=== PATIENT | female | born 1960 | race Caucasian/White ===

== ENCOUNTER 2021-02-13 15:41 | Emergency (ER) | payer BC, SELFPAY ==
--- NOTE | ~2021-02-13 | CT_ITS ---
EXAMINATION: CT abdomen pelvis w con DATE: 02/13/2021 18:03 INDICATION: Abdominal pain for 4 days. History of nausea and diarrhea. TECHNIQUE: Computed tomography (CT) of the abdomen and pelvis was performed with 100 cc Omnipaque 350 intravenous contrast. The dose-length product was 613.01 mGy-cm. Automated exposure control and iter ative reconstruction technique were employed. COMPARISON: CT dated 06/22/2016 FINDINGS: There is dependent atelectasis. There are bilateral breast implants. Heart size normal. No significant pleural or pericardial effusion. Status post cholecystectomy with pneumobilia. There is m oderate fluid throughout the small bowel which is distended. There are areas of mild small bowel wall thickening and mucosal enhancement, particularly in the proximal small bowel. There is fluid with ai r-fluid levels in the colon nondilated. No definite obstruction is seen. No lymphadenopathy. No signi ficant vascular abnormality. No lymphadenopathy. No free air or free fluid. IMPRESSION: 1. Moderate fluid throughout distended small bowel with areas of small bowel wall thickening and muco nino enhancement proximally. Findings suspicious for enteritis. No definite obstruction. 2: Status post cholecystectomy with pneumobilia. Reviewed, dictated and finalized at location A. IMPRESSION: 1. Moderate fluid throughout distended small bowel with areas of small bowel wa ll thickening and mucosal enhancement proximally. Findings suspicious for enter itis. No definite obstruction. 2: Status post cholecystectomy with pneumobilia.
--- NOTE | 2021-02-13 16:09 | ED.ABDPAIN ---
HPI - Abdominal Pain General Chief Complaint: Abdominal Pain Stated Complaint: stomach pain, back pain Time Seen by Provider: 02/13/21 16:10 Source: patient Mode of arrival: ambulatory Limitations: no limitations History of Present Illness HPI narrative: 60-year-old woman with a history of pancreatitis associated with gallbladder disease comes in today complaining of 3 days of worsening epigastric pain that radiates through to her back. Patient states that she has had nausea and diarrhea, but no fever, vomiting, dysuria, hematuria, shortness of breath, or chest pain. MD elicited complaint: abdominal pain Pertinent past history: other ( Pancreatitis 5 years ago) Onset (ago): day(s) (3) Pain Consistency: constant Location: epigastric Severity: severe Radiation: back Migration to: no migration Exacerbating factors: nothing Relieving factors: nothing Associated symptoms: nausea and diarrhea Related Data Home Medications Medication Instructions Recorded Confirmed L. gasseri-B. bifidum-B longum 2 cap PO DAILY 02/13/21 02/13/21 [[employer]] diphenhydramine HCl [Unisom 50 mg PO HS PRN 02/13/21 02/13/21 [employer]] escitalopram oxalate [Lexapro] 5 mg PO DAILY 02/13/21 02/13/21 estradiol 0.5 mg PO HS 02/13/21 02/13/21 estradiol [Estrace] 1 mg PO DAILY 02/13/21 02/13/21 linaclotide [Linzess] 145 mcg PO EVERY OTHER DAY 02/13/21 02/13/21 meloxicam [Mobic] 15 mg PO DAILY PRN 02/13/21 02/13/21 montelukast [Singulair] 10 mg PO DAILY 02/13/21 02/13/21 sb-ta-akrog-lutein-herbal 293 1 tablet PO DAILY 02/13/21 02/13/21 [[facility]] nortriptyline [Pamelor] 10 mg PO DAILY 02/13/21 02/13/21 valacyclovir 500 mg PO DAILY 02/13/21 02/13/21 Allergies Allergy/AdvReac Type Severity Reaction Status Date / Time codeine Allergy Confusion Verified 02/13/21 17:26 TAPE AdvReac Rash Uncoded 02/13/21 17:26 Review of Systems Review of Systems: All systems reviewed & are unremarkable except as noted in HPI and below Constitutional: Constitutional: Denies chills and Denies fever(s) Eyes: Eyes: Denies change in vision and Denies photophobia ENT: Reports sore throat ( 2 weeks ago) Cardiovascular: Cardiovascular: Denies chest pain and Denies radiating jaw, neck or arm pain Respiratory: Respiratory: Denies cough, Denies dyspnea and Denies wheezing Gastrointestinal: Gastrointestinal: Reports as per HPI, Reports abdominal pain, Reports diarrhea, Reports nausea and Denies vomiting Genitourinary: Genitourinary: Denies hematuria, Denies nocturia and Denies dysuria Musculoskeletal: Musculoskeletal: Denies back pain, Denies arthralgias and Denies joint swelling Integumentary/Breasts: Skin/Breast: Denies pruritus, Denies erythema and Denies rash Neurologic: Denies confusion, Denies vertigo, Denies dizziness, Denies syncope and Denies headache(s) Hematologic/Lymphatic: Hematologic/Lymphatic: Denies easy bleeding and Denies easy bruising Allergic/Immunologic: Allergic/Immunologic: Denies lip swelling and Denies throat swelling [facility] [place] Past Medical History Medical History (Updated 02/13/21 @ 18:33 by Samir Vasquez MD) COPD (chronic obstructive pulmonary disease) IBS (irritable bowel syndrome) Pancreatitis Surgical History Surgical History (Updated 02/13/21 @ 16:24 by Samir Vasquez MD) History of bladder suspension procedure History of cholecystectomy History of ERCP History of hysterectomy History of tubal ligation Social History Social History (Updated 02/13/21 @ 16:25 by Samir Vasquez MD) Smoking status: Former smoker Alcohol intake: current Alcohol use details: occasional Substance use: never Living arrangements: with family Gender identity (if verbalized by the patient): Female Exam Const: General: healthy appearing and alert Orientation/consciousness: patient oriented x3 Limitations: no limitations Other: moderate to severe acute distress. HENMT: Head: wei
--- NOTE | 2021-02-13 16:17 | ECG_ITS ---
Measurements Intervals [place] Rate: 74 P: 46 KS: 156 QRS: -14 QRSD: 104 T: 28 QT: 387 QTc: 431 Interpretive Statements SINUS RHYTHM INCOMPLETE RIGHT BUNDLE BRANCH BLOCK LOW QRS VOLTAGE IN PRECORDIAL LEADS BORDERLINE ECG Electronically Signed On 02-13-2021 16:41:43 CDT by Akbar Almonte D.O.
[2021-02-13] MEDS: SODIUM CHLORIDE 0.9% IV 1,000 ML 999 ML IV CONT (16:40)
[2021-02-13] MEDS: ONDANSETRON INJ 4 MG/2 ML VIAL IV PUSH (16:40)
[2021-02-13] MEDS: HYDROmorphone HCL INJ (*CRX) 2 MG/ML VIAL 0.5 MG IV PUSH (16:40)
[2021-02-13 16:44] LABS: Basophils Absolute Auto 0.05 K/mm3 (0.00-0.10); Basophils Percent Auto 0.6 % (0.0-1.0); Eosinophils Absolute Auto 0.75 K/mm3 (0.02-0.50); Eosinophils Percent Auto 9.2 % (1.0-6.0); Hematocrit 42.1 % (35.0-49.0); Hemoglobin 14.3 g/dL (12.0-15.0); Immature Granulocyte Absolute 0.02 K/mm3 (0.00-0.00); Immature Granulocyte Percent A 0.2 % (0.0-0.0); Lymphocytes Absolute Auto 1.87 K/mm3 (1.10-4.50); Mean Corpuscular Hemoglobin 30.6 pg (27.0-31.0); Mean Platelet Volume 11.1 fl (9.2-11.8); Monocytes Percent Auto 7.4 % (2.0-11.0); Neutrophils Absolute Auto 4.9 K/mm3 (1.7-7.2); Neutrophils Percent Auto 59.6 % (50.0-70.0); Platelet Count Result 251 K/mm3 (150-420); Red Blood Count 4.68 M/mm3 (4.20-5.40); Red Cell Distribution Width 12.1 % (11.6-14.4); White Blood Count 8.1 K/mm3 (4.8-10.8)
[2021-02-13 16:46] LABS: Add Urine Microscopic? NO; Appearance Urine Clear (Clear); Bilirubin Urine Negative (Negative); Blood Urine Negative (Negative); Color Urine Light Yellow (Yellow); Glucose Urine UA Negative (Negative); Ketones Urine Negative (Negative); Leukocyte Esterase Ur Negative LEU/UL (Negative); Nitrate Urine Negative (Negative); Protein Urine Negative (Negative); Specific Grav Ur 1.015 (1.010-1.020); Urobilinogen Urine 0.2 mg/dL (0.2-1.0)
[2021-02-13 16:59] VITALS: BP 125/109; PULSE 82; RESP 20; TEMP 36.7; O2SAT 97
[2021-02-13 17:06] LABS: Lactic Acid Reflex 0.9 mmol/L (0.4-2.0)
[2021-02-13 17:09] LABS: Alanine Aminotransferase 30 U/L (14-59); Albumin Level 3.7 g/dL (3.4-5.0); Alkaline Phosphatase 64 U/L (46-116); Anion Gap 15 mmol/L (8-16); Aspartate Amino Transferase 21 U/L (15-37); Bilirubin,Total 0.4 mg/dL (0.00-1.00); Blood Urea Nitrogen 18 mg/dL (7-18); Carbon Dioxide 25 mmol/L (21-32); Chloride 103 mmol/L (98-108); Estimated Glomerular Filt Rate 60; Glucose 98 mg/dL (70-99); Lipase 156 U/L (73-393); Osmolality Calculated 297 mOsm/kg (285-295); Sodium 143 mmol/L (136-145); Total Protein 7.7 g/dL (6.4-8.2)
[2021-02-13 17:11] LABS: Troponin I 4.5 ng/L (0.00-60.4)
[2021-02-13 19:03] VITALS: BP 138/88; PULSE 70; RESP 20; TEMP 36.9; O2SAT 92
== END 2021-02-13 19:08 | disposition home or self-care (01) ==
PROVIDERS: Emergency Provider Emergency Medicine; PCP Internal Medicine
DX: K52.9 Noninfective gastroenteritis and colitis, unspecified (principal)
CPT/HCPCS: 36415; 74177; 80053; 81003; 83605; 83690; 84484; 85025; 87040; 93005; 96361; 96374; 96375; 99283; 99284; J1170; J2405; J7030; Q9967

== ENCOUNTER 2021-03-15 07:23 | Outpatient (CLI) | payer BC, SELFPAY ==
[2021-03-15 08:11] LABS: Alanine Aminotransferase 27 U/L (14-59); Albumin Level 3.7 g/dL (3.4-5.0); Alkaline Phosphatase 50 U/L (46-116); Aspartate Amino Transferase 12 U/L (15-37); Bilirubin Direct 0.1 mg/dL (0-0.2); Bilirubin,Total 0.5 mg/dL (0.00-1.00); Lipase 166 U/L (73-393); Total Protein 7.3 g/dL (6.4-8.2)
== END 2021-03-15 07:24 | disposition home or self-care (01) ==
LOC: CHSLAB 07:26
PROVIDERS: PCP Internal Medicine; Visit Provider Internal Medicine Gastroenterology
DX: R10.9 Unspecified abdominal pain (principal); R11.0 Nausea
CPT/HCPCS: 36415; 80076; 83690

== ENCOUNTER 2021-09-30 07:55 | Outpatient (CLI) | payer BC, SELFPAY ==
[2021-09-30 08:57] LABS: Basophils Absolute Auto 0.02 K/mm3 (0.00-0.10); Basophils Percent Auto 0.5 % (0.0-1.0); Eosinophils Absolute Auto 0.18 K/mm3 (0.02-0.50); Eosinophils Percent Auto 4.3 % (1.0-6.0); Hematocrit 45.5 % (35.0-49.0); Immature Granulocyte Absolute 0.01 K/mm3 (0.00-0.00); Immature Granulocyte Percent A 0.2 % (0.0-0.0); Lymphocytes Absolute Auto 1.38 K/mm3 (1.10-4.50); Lymphocytes Percent Auto 32.6 % (18.0-42.0); Mean Corpuscular Hemoglobin 30.9 pg (27.0-31.0); Mean Corpuscular Volume 93.8 fL (78.0-102.0); Mean Platelet Volume 11.7 fl (9.2-11.8); Monocytes Absolute Auto 0.45 K/mm3 (0.10-0.90); Monocytes Percent Auto 10.6 % (2.0-11.0); Neutrophils Absolute Auto 2.2 K/mm3 (1.7-7.2); Neutrophils Percent Auto 51.8 % (50.0-70.0); Platelet Count Result 242 K/mm3 (150-420); Red Blood Count 4.85 M/mm3 (4.20-5.40); Red Cell Distribution Width 11.9 % (11.6-14.4); White Blood Count 4.2 K/mm3 (4.8-10.8)
[2021-09-30 09:02] LABS: Add Urine Microscopic? NO; Appearance Urine Clear (Clear); Bilirubin Urine Negative (Negative); Blood Urine Negative (Negative); Color Urine Yellow (Yellow); Glucose Urine UA Negative (Negative); Ketones Urine Negative (Negative); Leukocyte Esterase Ur Negative (Negative); Nitrate Urine Negative (Negative); Protein Urine Negative (Negative); Specific Grav Ur 1.015 (1.010-1.020); Urobilinogen Urine 0.2 mg/dL (0.2-1.0)
[2021-09-30 10:53] LABS: Alanine Aminotransferase 40 U/L (14-59); Albumin Level 3.7 g/dL (3.4-5.0); Alkaline Phosphatase 59 U/L (46-116); Anion Gap 10 mmol/L (8-16); Aspartate Amino Transferase 18 U/L (15-37); Bilirubin,Total 0.4 mg/dL (0.00-1.00); Blood Urea Nitrogen 20 mg/dL (7-18); CRP 1.5 mg/dL (0.0-0.9); Calcium 9.4 mg/dL (8.5-10.1); Carbon Dioxide 26 mmol/L (21-32); Chloride 103 mmol/L (98-108); Cholesterol 195 mg/dL (0-200); Estimated Glomerular Filt Rate > 60; Glucose 97 mg/dL (70-99); HDL Direct 54 mg/dL (40-60); LDL Cholesterol Calculated 105 mg/dL (<130); Osmolality Calculated 290 mOsm/kg (285-295); Potassium 4.4 mmol/L (3.5-5.1); Sodium 139 mmol/L (136-145); Thyroid Stimulating Hormone 1.27 uIU/mL (0.36-3.74); Total Protein 7.4 g/dL (6.4-8.2); Triglycerides 178 mg/dL (0-150)
== END 2021-09-30 07:56 | disposition home or self-care (01) ==
LOC: CHSLAB 08:00
PROVIDERS: PCP Internal Medicine; Visit Provider Internal Medicine
DX: Z00.00 Encounter for general adult medical examination without abnormal findings (principal); M54.9 Dorsalgia, unspecified
CPT/HCPCS: 36415; 80053; 80061; 81003; 84443; 85025; 86140

== ENCOUNTER 2021-11-08 09:01 | Outpatient (CLI) | payer BC, SELFPAY ==
[2021-11-08 09:15] LABS: Basophils Absolute Auto 0.05 K/mm3 (0.00-0.10); Eosinophils Absolute Auto 0.25 K/mm3 (0.02-0.50); Eosinophils Percent Auto 5.2 % (1.0-6.0); Hematocrit 45.6 % (35.0-49.0); Hemoglobin 15.1 g/dL (12.0-15.0); Immature Granulocyte Absolute 0.01 K/mm3 (0.00-0.00); Immature Granulocyte Percent A 0.2 % (0.0-0.0); Lymphocytes Percent Auto 31.4 % (18.0-42.0); Mean Corpuscular HGB Conc 33.1 g/dL (32.0-36.0); Mean Corpuscular Hemoglobin 30.9 pg (27.0-31.0); Mean Corpuscular Volume 93.4 fL (78.0-102.0); Mean Platelet Volume 10.9 fl (9.2-11.8); Monocytes Absolute Auto 0.47 K/mm3 (0.10-0.90); Monocytes Percent Auto 9.8 % (2.0-11.0); Neutrophils Absolute Auto 2.5 K/mm3 (1.7-7.2); Neutrophils Percent Auto 52.4 % (50.0-70.0); Platelet Count Result 231 K/mm3 (150-420); Red Blood Count 4.88 M/mm3 (4.20-5.40); White Blood Count 4.8 K/mm3 (4.8-10.8)
[2021-11-08 09:43] LABS: CRP < 0.5 mg/dL (0.0-0.9)
== END 2021-11-08 09:02 | disposition home or self-care (01) ==
LOC: CHSLAB 09:03
PROVIDERS: PCP Internal Medicine; Visit Provider Internal Medicine
DX: D72.819 Decreased white blood cell count, unspecified (principal)
CPT/HCPCS: 36415; 85025; 86140

== ENCOUNTER 2022-04-02 16:39 | Outpatient (CLI) | payer BC, SELFPAY ==
--- NOTE | ~2022-04-02 | XR_ITS ---
EXAM: XR_CERV2-3V_CR DATE: 04/02/2022 17:00 HISTORY: Right shoulder and neck pain . COMPARISON: None available. FINDINGS: Craniocervical association and atlantoaxial joint are normal. No prevertebral soft tissue swelling. 2 mm retrolisthesis of C4 on C5. Vertebral body heights are maintained. Mild disc space pamela rowing at C4-C5 and C5-6. Mild mid and lower cervical spine facet sclerosis. IMPRESSION: Grade 1 retrolisthesis of C4 on C5. Mild mid cervical spine degenerative disc disease. Mi ld mid and lower cervical facet arthropathy. Reviewed, dictated and finalized at location K. IMPRESSION: Grade 1 retrolisthesis of C4 on C5. Mild mid cervical spine degener ative disc disease. Mild mid and lower cervical facet arthropathy.
--- NOTE | ~2022-04-02 | XR_ITS ---
EXAM: XR shoulder RT min 2V DATE: 04/02/2022 17:00 HISTORY: Right shoulder and neck pain . COMPARISON: None available. FINDINGS: Normal mineralization. No fracture or dislocation. No lytic or blastic lesion. Mild degene rative change in the AC joint and glenohumeral joint. No erosion or periosteal change. Soft tissues w ithin normal limits. IMPRESSION: No acute osseous finding in the right shoulder. Reviewed, dictated and finalized at location K.
== END 2022-04-02 16:40 | disposition home or self-care (01) ==
LOC: CHSIMG 16:41
PROVIDERS: PCP Internal Medicine; Visit Provider Internal Medicine
DX: M25.511 Pain in right shoulder (principal); M54.2 Cervicalgia
CPT/HCPCS: 72040; 73030

== ENCOUNTER 2022-04-08 07:34 | Outpatient (RCR) | payer BC, SELFPAY ==
--- NOTE | 2022-04-08 08:08 | PTOPEVAL1 ---
Evaluation Information Assessment Status Evaluation Diagnosis R shoulder, neck pain Subjective Information patient reports she injured her shoulder back in december during a training for work. she reports she was doing planks on the last day and she has had pain in the R shoulder since. 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 she reports she has pain in the shoulder all day/everyday. she reports she has been limited on her use of the R arm due to the shoulder pain. she reports it affects her lifting more than mobility. she reports she has had an nolan of the R shoulder. no MRI as of this date. no injection as of this date. she reports no NTB. she reports the R arm feels tired. patient reports no symptoms past the elbow . Reported Pain Level Pain Score 6: Self Report Assessment PT Clinical Summary mrs. webb presents to skilled PT for evaluation and treatment of R shoulder pain. she presents with signs and symptoms this date consistent with impingement and RTC/biceps tendonitis. she would do well to attend and participate in skilled PT to improve her objective/functional deficits and progress towards a return to her prior level functional activity performance and quality of life. Plan of Care Interventions Electrical Stimulation,Hot Pack/Cold Pack,Manual Therapy,Patient/Caregiver Educati,Therapeutic Activities,Therapeutic Exercise PT Services Indicated Yes Treatment Frequency and 3x weekly for 12 visits Duration These treatments will address the objective and functional deficits as defined above. The patient will be advanced safely and appropriately in order for the patient to progress towards his/her prior level of function. Additional exercises will be introduced and as well as a comprehensive home exercise program upon discharge, if needed, ?to ensure carryover of functional gains achieved in the clinic. This treatment plan has been reviewed and agreement upon by the patient.
--- NOTE | 2022-05-08 17:49 | PTOPPROG ---
Assessment and note entered by Kiki Velez, PT Evaluation Information Assessment Status Evaluation Diagnosis R shoulder, neck pain Onset 04/03/22 Subjective Information Laly reports her right shoulder is better overall . She She still has pain with reaching to the side and still feels weak. She saw her physician last week and underwent an injection. She notes the injection has helped decrease her pain. She will have a MRI on 05/19/22. She states her physician wanted her to continue PT. She also feels continuing PT will be beneficial so she can build some strength back up now that her pain is under control. She feels she has improved 60% overall at this time. Assessment PT Clinical Summary Laly Osorio has completed 12 physical therapy visits. She saw her physician last week and underwent an injection that has helped decrease her pain. She states the physician wanted her to continue PT. She reports a 60% overall improvement at this time but she still has pain with reaching to the side, lifting, and sleeping. She objectively demonstrates improved shoulder ROM and strength. Despite these improvements, she continues to demonstrate deficits. She will continue to benefit from skilled PT to further address these physical and functional limitations. Plan of Care Interventions Electrical Stimulation,Hot Pack/Cold Pack,Manual Therapy,Therapeutic Activities,Therapeutic Exercise PT Services Indicated Yes Treatment Frequency and 3 times a week for 2 weeks then 2 times a week for Duration 2 weeks. These treatments will address the objective and functional deficits as defined above. The patient will be advanced safely and appropriately in order for the patient to progress towards his/her prior level of function. Additional exercises will be introduced and as well as a comprehensive home exercise program upon discharge, if needed, ?to ensure carryover of functional gains achieved in the clinic. This treatment plan has been reviewed and agreement upon by the patient.
== END 2022-05-15 23:59 | disposition home or self-care (01) ==
LOC: CHSPT 07:34
PROVIDERS: PCP Internal Medicine; Visit Provider Internal Medicine
DX: M25.511 Pain in right shoulder (principal); M54.2 Cervicalgia
CPT/HCPCS: 97014; 97110; 97140; 97161; G0283

== ENCOUNTER → 2022-05-19 14:35 | Outpatient (CLI) | payer BC, SELFPAY ==
--- NOTE | ~2022-05-19 | MR_ITS ---
EXAMINATION: MR shoulder RT wo con DATE: 05/19/2022 15:24 INDICATION: Right shoulder pain TECHNIQUE: Magnetic resonance imaging (MRI) of the right shoulder was performed without intravenous c ontrast. Sequences included axial PD-weighted FS FSE, coronal oblique PD-weighted FS FSE, coronal obl ique T2-weighted FS FSE, sagittal PD-weighted FS FSE, and sagittal T1-weighted SE. COMPARISON: None. FINDINGS: Coracoacromial arch: The acromion undersurface is curved in morphology (type II). The coracoacromial ligament is normal. M ild acromioclavicular osteoarthritis. Rotator cuff: Mild supraspinatus and infraspinatus tendinopathy. Small articular sided tear involving approximately 50% the tendon thickness extending approximately 4 mm AP along the footplate of the conjoined portio n of the supraspinatus and infraspinatus tendons. The teres minor tendon is normal. Moderate subscapu chacho tendinopathy with partial tear involving the superolateral quadrant of the lesser tuberosity fo otplate allowing subluxation of the long head biceps tendon across the medial rim of the cephalad asp ect of the intertubercular groove and across the subscapularis tendon tear defect. Normal rotator cuf f muscle bulk and signal. Biceps tendon, glenoid labrum and glenohumeral cartilage: Moderate tendinopathy and longitudinal split tearing of the intra-articular and extra-articular porti ons of the long head biceps tendon. There is a superior, anterior to posterior tear of the glenoid la madelaine (SLAP tear) extending from the 12:00-10:30 position. Partial-thickness cartilage loss and deep f issuring at the anterosuperior aspect of the glenoid. Cartilage along the inferomedial aspect of the humeral head. Fluid: Synovitis and small amount of fluid in the long head biceps tendon sheath consistent with bicipital t enosynovitis. Physiologic amount of fluid in the glenohumeral joint space. No loose osteochondral bod ies. Small amount of fluid in the subacromial/subdeltoid bursa consistent with mild bursitis. Bones: Normal marrow signal with no edema, fracture or abnormal marrow replacing process. Mild cystic change s at the lesser and greater tuberosities likely related to chronic rotator cuff disease. IMPRESSION: 1. Mild supraspinatus and infraspinatus tendinopathy with small mild articular sided tear at the conj oined portion of the tendons. 2. Moderate subscapularis tendinopathy with partial-thickness tear involving the superolateral quadra nt of the lesser tuberosity footplate. 3. Moderate bicipital tenosynovitis with moderate tendinopathy and longitudinal split tear of the malick g head biceps tendon which is subluxed across the cephalad medial rim of the intertubercular groove i nto the subscapularis tendon tear defect. 4. Mild glenohumeral osteoarthritis with SLAP tear at the superior and posterosuperior glenoid labrum . 5. Mild acromioclavicular osteoarthritis. Reviewed, dictated and finalized at location B. IMPRESSION: 1. Mild supraspinatus and infraspinatus tendinopathy with small mild articular sided tear at the conjoined portion of the tendons. 2. Moderate subscapularis tendinopathy with partial-thickness tear involving th e superolateral quadrant of the lesser tuberosity footplate. 3. Moderate bicipital tenosynovitis with moderate tendinopathy and longitudinal split tear of the long head biceps tendon which is subluxed across the cephala d medial rim of the intertubercular groove into the subscapularis tendon tear d efect. 4. Mild glenohumeral osteoarthritis with SLAP tear at the superior and posteros uperior glenoid labrum. 5. Mild acromioclavicular osteoarthritis.
== END ==
PROVIDERS: PCP Internal Medicine; Visit Provider Internal Medicine
DX: M19.011 Primary osteoarthritis, right shoulder (principal); M65.821 Other synovitis and tenosynovitis, right upper arm; S43.431A Superior glenoid labrum lesion of right shoulder, initial encounter
CPT/HCPCS: 73221

== ENCOUNTER 2022-12-05 09:50 | Outpatient (CLI) | payer BC, SELFPAY ==
[2022-12-05 10:22] LABS: Alanine Aminotransferase 34 U/L (14-59); Albumin Level 3.9 g/dL (3.4-5.0); Alkaline Phosphatase 73 U/L (46-116); Amylase 50 U/L (25-115); Anion Gap 7 mmol/L (8-16); Aspartate Amino Transferase 24 U/L (15-37); Bilirubin,Total 0.6 mg/dL (0.00-1.00); Blood Urea Nitrogen 29 mg/dL (7-18); Calcium 9.2 mg/dL (8.5-10.1); Carbon Dioxide 28 mmol/L (21-32); Chloride 103 mmol/L (98-108); Estimated Glomerular Filt Rate > 60; Glucose 101 mg/dL (70-99); Lipase 81 U/L (16-77); Osmolality Calculated 291 mOsm/kg (285-295); Potassium 4.4 mmol/L (3.5-5.1); Sodium 138 mmol/L (136-145); Total Protein 8.1 g/dL (6.4-8.2)
[2022-12-05 10:28] LABS: D Dimer 0.23 mg/L (0.19-0.50)
== END 2022-12-05 09:51 | disposition home or self-care (01) ==
LOC: CHSLAB 09:52
PROVIDERS: PCP Internal Medicine; Visit Provider Nurse Practitioner Family
DX: R06.02 Shortness of breath (principal); R10.9 Unspecified abdominal pain
CPT/HCPCS: 36415; 80053; 82150; 83690; 85380

== ENCOUNTER 2022-12-11 15:49 | Outpatient (CLI) | payer BC, SELFPAY ==
--- NOTE | ~2022-12-11 | CT_ITS ---
CT of the Abdomen: Indication: Pain Technique: 2.5 mm axial scans were obtained through the abdomen following intravenous administration of 100 cc of Omnipaque 350. Dose reduction technique was used on this scan by utilizing automated ex posure control and iterative reconstruction technique. The dose-length product (DLP) was 554.68 mGy-c m. COMPARISON: 02/13/2021 Findings: Scans through the lung bases are unremarkable. The liver, spleen, pancreas, adrenals and kidneys are within normal limits. Cholecystectomy clips are present. No evidence of aortic aneurysm. No lymphadenopathy. Visualized bowel loops are unremarkable. No ascites. Impression: Status post cholecystectomy, otherwise unremarkable exam. Reviewed, dictated and finalized at location M. Impression: Status post cholecystectomy, otherwise unremarkable exam.
== END 2022-12-11 15:50 | disposition home or self-care (01) ==
LOC: CHSIMG 15:50
PROVIDERS: PCP Internal Medicine; Visit Provider Nurse Practitioner Family
DX: R10.9 Unspecified abdominal pain (principal); Z90.49 Acquired absence of other specified parts of digestive tract
CPT/HCPCS: 74160; Q9967

== ENCOUNTER 2023-03-13 08:41 | Outpatient (CLI) | payer BC, SELFPAY ==
--- NOTE | ~2023-03-13 | CT_ITS ---
EXAMINATION: CT lung screening DATE: 03/13/2023 08:59 INDICATION: personal history of tobacco dependence,NO COMPLAINTS TECHNIQUE: Computed tomography (CT) of the chest was performed without intravenous contrast. Addition al 3D reconstructions utilizing coronal maximum intensity projection (MIP) were performed. Automated exposure control and iterative reconstruction technique were employed. The dose-length product was 10 5.35 mGy-cm. COMPARISON: Chest CT dated 09/15/2018 FINDINGS: Mild emphysema. Unchanged calcified right right upper and lower lobe nodules along with calcified rig ht hilar lymph nodes and couple small calcifications in the liver and spleen, all consistent with old granulomatous disease. No pneumonia, pulmonary edema or pleural effusion. Heart size is normal. Smal l amount of atherosclerotic coronary artery calcific lesion. No pericardial effusion. Thoracic aorta is normal in caliber. No pathologically enlarged thoracic lymphadenopathy. Bilateral breast implants. Small amount of pneumobilia likely related to prior cholecystectomy with surgical clips the gallblad hubert fossa. Mild thoracic spondylosis. IMPRESSION: 1. Lung-RADS category 1: Negative. Continue annual screening with noncontrast low-dose chest CT in 12 months. Reviewed, dictated and finalized at location A. IMPRESSION: 1. Lung-RADS category 1: Negative. Continue annual screening with noncontrast l ow-dose chest CT in 12 months.
== END 2023-03-13 08:42 | disposition home or self-care (01) ==
LOC: CHSIMG 08:42
PROVIDERS: PCP Internal Medicine; Visit Provider Nurse Practitioner Family
DX: Z12.2 Encounter for screening for malignant neoplasm of respiratory organs (principal); Z87.891 Personal history of nicotine dependence
CPT/HCPCS: 71271

== ENCOUNTER 2023-04-24 19:34 | Emergency (ER) | payer BC, SELFPAY ==
[2023-04-24 19:35] VITALS: BP 135/90; PULSE 88; RESP 18; TEMP 36.8; O2SAT 94
--- NOTE | 2023-04-24 19:40 | ED.FEMALEGU ---
HPI - Female Genitourinary General Chief complaint: Urogenital-Female Stated complaint: Urogenital Time Seen by Provider: 04/24/23 19:40 Source: patient and RN notes reviewed Mode of arrival: ambulatory Limitations: no limitations History of Present Illness MD elicited complaint: other ( hematuria) Pertinent past history: recurrent UTIs Onset (ago): hour(s) Severity: mild Vaginal discharge: none Vaginal bleeding: none Urinary symptoms: Dysuria, Urgency, Frequency and Hematuria Exacerbating factors: urination Relieving factors: none Associated symptoms: abdominal pain (Pelvic pressure) Treatment prior to arrival: other (AZO PO) Patient : No Related Data Home Medications Medication Instructions Recorded Confirmed escitalopram oxalate 5 mg tablet 5 mg PO DAILY 02/13/21 04/24/23 (Lexapro) estradiol 1 mg tablet 0.5 mg PO HS 02/13/21 04/24/23 estradiol 1 mg tablet (Estrace) 1 mg PO DAILY 02/13/21 04/24/23 meloxicam 15 mg tablet (Mobic) 15 mg PO DAILY PRN Pain 02/13/21 04/24/23 montelukast 10 mg tablet 10 mg PO DAILY 02/13/21 04/24/23 (Singulair) nortriptyline 10 mg capsule 10 mg PO DAILY 02/13/21 04/24/23 (Pamelor) valacyclovir 500 mg tablet 500 mg PO DAILY 02/13/21 04/24/23 albuterol sulfate 90 mcg/actuation 1 puff inhalation PRN PRN Wheezing 04/24/23 04/24/23 aerosol inhaler ondansetron HCl 4 mg tablet 4 mg PO TID PRN nausea and vomiting 04/24/23 04/24/23 pantoprazole 40 mg tablet,delayed 40 mg PO DAILY 04/24/23 04/24/23 release plecanatide 3 mg tablet (Trulance) 3 mg PO DAILY 04/24/23 04/24/23 progesterone micronized 100 mg 100 mg PO DAILY 04/24/23 04/24/23 capsule tirzepatide 2.5 mg/0.5 mL 2.5 mg subcut WEEKLY 04/24/23 04/24/23 subcutaneous pen injector (Cole) Allergies Allergy/AdvReac Type Severity Reaction Status Date / Time codeine Allergy Confusion Verified 04/24/23 20:01 TAPE AdvReac Rash Uncoded 04/24/23 20:01 Review of Systems Review of Systems: All systems reviewed & are unremarkable except as noted in HPI and below Constitutional: Constitutional: Denies chills and Denies fever(s) PMFSH Past Medical History Medical History COPD (chronic obstructive pulmonary disease) Generalized anxiety disorder (12/25/16) GERD (gastroesophageal reflux disease) (11/18/16) IBS (irritable bowel syndrome) Pancreatitis Surgical History Surgical History History of augmentation of both breasts History of bladder suspension procedure History of cholecystectomy History of ERCP History of hysterectomy History of tubal ligation Social History Social History Smoking status: Former smoker Alcohol intake: current Alcohol use details: occasional Substance use: never Living arrangements: with family Gender identity (if verbalized by the patient): Female Exam Const: General: healthy appearing, no acute distress and alert Nutritional Appearance: well nourished Orientation/consciousness: patient oriented x3 HENMT: Head: normal to inspection Ears: external ears normal Face/Nose/Sinus: Normal external nose present Face and sinus: normal facial exam Mouth: Yes moist mucous membranes Eyes: Conjunctivae: conjunctivae normal Pupils: Equal, round and reactive pupils present EOM: EOMs intact bilaterally Neck: Neck: normal visual inspection Resp: Effort & Inspection: normal respiratory effort Auscultation: clear to auscultation bilaterally Cardio: Rate: regular rate Rhythm: regular rhythm GI: GI Palp: Yes Soft to palpation and Yes Tenderness to palpation present (GI) ( mild pelvis) Auscultation: normal bowel sounds Back/Spine/Pelvis: Cervical Spine: cervical ROM normal Thoracic/Lumbar Spine: thoraco-lumbar ROM normal Skin: General skin exam: normal color Rashes: no rashes Neuro: General: patient oriented x3,
[2023-04-24 19:47] VITALS: BP 135/90; PULSE 86; RESP 20; TEMP 37.1; O2SAT 96
[2023-04-24 19:56] LABS: Add Urine Microscopic? YES; Appearance Urine Slightly Cloudy (Clear); Bacteria Urine 1+ /hpf; Bilirubin Urine Negative (Negative); Blood Urine 3+ (Negative); Color Urine Yellow (Yellow); Glucose Urine UA Negative (Negative); Ketones Urine Negative (Negative); Leukocyte Esterase Ur 3+ LEU/UL (Negative); Nitrate Urine Positive (Negative); Protein Urine 1+ (Negative); RBC Urine 21-50 /hpf (0-2); Specific Grav Ur <= 1.005 (1.010-1.020); Squamous Epithelial Cell Urine Rare /hpf (Few); Urobilinogen Urine 0.2 mg/dL (0.2-1.0); WBC Urine 21-30 /hpf (0-3); pH Urine 6.5 (5.0-8.0)
[2023-04-24] MEDS: CEPHALEXIN 500 MG CAPSULE PO (20:17)
--- NOTE | 2023-04-27 13:25 | PC.NURSE ---
PRELIMINARY URINE CULTURE: ISOLATE 1: GREATER THAN 100,000 CFU/ML OF ESCHERICHIA COLI. PER DR HANKINS TO AWAIT C&S.
--- NOTE | 2023-04-28 13:17 | PC.NURSE ---
FINAL URINE CULTURE RESULTS: ISOLATE 1: GREATER THAN 100,000CFU/ML OF ESCHERICHIA COLI. NO CHANGE IN TX NEEDED PER DR PETERS AND C&S.
== END 2023-04-24 20:20 | disposition home or self-care (01) ==
PROVIDERS: Emergency Provider Emergency Medicine; PCP Internal Medicine
DX: N30.01 Acute cystitis with hematuria (principal); J44.9 Chronic obstructive pulmonary disease, unspecified; Z79.1 Long term (current) use of non-steroidal anti-inflammatories (NSAID); Z79.899 Other long term (current) drug therapy; Z87.891 Personal history of nicotine dependence
CPT/HCPCS: 81001; 87077; 87086; 87088; 87186; 99283; A9270

== ENCOUNTER 2023-09-12 09:00 | Outpatient (CLI) | payer BC, SELFPAY ==
[2023-09-15 00:53] LABS: SS-A <1.0; SS-B <1.0
[2023-09-15 00:55] LABS: ANA Cascade Screen Negative (Negative)
== END 2023-09-12 09:01 | disposition home or self-care (01) ==
LOC: CHSLAB 09:04
PROVIDERS: PCP Internal Medicine
DX: R68.2 Dry mouth, unspecified (principal)
CPT/HCPCS: 36415; 83516; 86038; 86225; 86235

== ENCOUNTER 2023-12-01 16:38 | Outpatient (CLI) | payer BC, SELFPAY ==
--- NOTE | ~2023-12-01 | MM_ITS ---
CORRECTED REPORT corrected examination description [facility] [place] 12/03/23 This report was recreated on 12/03/23. Original report was EXAMINATION: MM screening mammo implant BI w heather HISTORY: Screening mammogram TECHNIQUE: Craniocaudal and mediolateral oblique 3-D tomosynthesis images with implant displacement and synthetic 2-D images were generated. Craniocaudal and mediolateral oblique views of the breasts without implant displacement were obtained using full field digital mammography. CAD analysis was submitted and interpreted. COMPARISON: 08/15/2019 diagnostic bilateral mammogram and bilateral Limited breast ultrasound examination 08/12/2019 bilateral screening BREAST PARENCHYMAL COMPOSITION: There are scattered areas of fibroglandular density. FINDINGS: Status post bilateral augmentation mammoplasty. There is no evidence of suspicious mass, calcification, or architectural distortion to suggest malignancy in either breast. There has been no suspicious interval change. IMPRESSION: 1. No mammographic evidence of malignancy. 2. Recommend routine screening mammography in one year. BI-RADS Category 1: Negative Reviewed, dictated and finalized at location A. MTDD
== END 2023-12-01 16:39 | disposition home or self-care (01) ==
LOC: ANHIMG 16:40
PROVIDERS: PCP Internal Medicine; Visit Provider Obstetrics & Gynecology
DX: Z12.31 Encounter for screening mammogram for malignant neoplasm of breast (principal)
CPT/HCPCS: 77063; 77067

== ENCOUNTER 2023-12-16 07:21 | Outpatient (CLI) | payer BC, SELFPAY ==
[2023-12-16 07:35] LABS: Basophils Absolute Auto 0.04 K/mm3 (0.00-0.10); Basophils Percent Auto 0.6 % (0.0-1.0); Eosinophils Absolute Auto 0.13 K/mm3 (0.02-0.50); Eosinophils Percent Auto 2.1 % (1.0-6.0); Hematocrit 43.1 % (35.0-49.0); Hemoglobin 14.4 g/dL (12.0-15.0); Immature Granulocyte Absolute 0.01 K/mm3 (0.00-0.00); Immature Granulocyte Percent A 0.2 % (0.0-0.0); Lymphocytes Absolute Auto 1.41 K/mm3 (1.10-4.50); Lymphocytes Percent Auto 22.7 % (18.0-42.0); Mean Corpuscular HGB Conc 33.4 g/dL (32-36); Mean Corpuscular Hemoglobin 30.8 pg (27.0-31.0); Mean Corpuscular Volume 92.3 fL (78.0-102.0); Monocytes Absolute Auto 0.55 K/mm3 (0.10-0.90); Monocytes Percent Auto 8.9 % (2.0-11.0); Neutrophils Absolute Auto 4.06 K/mm3 (1.70-7.20); Neutrophils Percent Auto 65.5 % (50.0-70.0); Platelet Count Result 245 K/mm3 (150-420); Red Blood Count 4.67 M/mm3 (4.20-5.40); White Blood Count 6.2 K/mm3 (4.8-10.8)
[2023-12-16 08:36] LABS: Alanine Aminotransferase 34 U/L (14-59); Albumin Level 3.7 g/dL (3.4-5.0); Alkaline Phosphatase 57 U/L (46-116); Anion Gap 10 mmol/L (4-12); Aspartate Amino Transferase 25 U/L (15-37); Bilirubin,Total 0.5 mg/dL (0.00-1.00); Blood Urea Nitrogen 16 mg/dL (7-18); Calcium 9.4 mg/dL (8.5-10.1); Carbon Dioxide 29 mmol/L (21-32); Chloride 104 mmol/L (98-108); Cholesterol 253 mg/dL (0-200); Estimated Glomerular Filt Rate > 60; Glucose 85 mg/dL (70-99); HDL Direct 56 mg/dL (40-60); LDL Cholesterol Calculated 158 mg/dL (<130); Osmolality Calculated 296 mOsm/kg (285-295); Potassium 4.4 mmol/L (3.5-5.1); Sodium 143 mmol/L (136-145); Thyroid Stimulating Hormone 1.42 uIU/mL (0.36-3.74); Triglycerides 196 mg/dL (0-150)
[2023-12-16 16:57] LABS: Appearance Urine Clear (Clear); Bilirubin Urine Negative (Negative); Blood Urine Negative (Negative); Color Urine Light Yellow (Yellow); Glucose Urine UA Negative (Negative); Ketones Urine Negative (Negative); Leukocyte Esterase Ur Negative (Negative); Nitrate Urine Negative (Negative); Protein Urine Negative (Negative); Urobilinogen Urine 0.2 mg/dL (0.2-1.0)
[2023-12-16 17:15] LABS: Add Urine Microscopic? NO
== END 2023-12-16 07:22 | disposition home or self-care (01) ==
LOC: CHSLAB 07:23
PROVIDERS: PCP Internal Medicine; Visit Provider Internal Medicine
DX: Z00.00 Encounter for general adult medical examination without abnormal findings (principal); K58.9 Irritable bowel syndrome, unspecified
CPT/HCPCS: 36415; 80053; 80061; 81003; 84443; 85025

== ENCOUNTER 2024-01-07 11:06 | Outpatient (RCR) | payer BC, SELFPAY ==
[2024-01-07 10:58] VITALS: BMI 29.9
[2024-01-07 14:06] VITALS: BMI 29.9
== END 2024-03-28 11:13 | disposition home or self-care (01) ==
LOC: ANHDMC 11:06
PROVIDERS: PCP Internal Medicine; Visit Provider Internal Medicine
DX: E66.9 Obesity, unspecified (principal); Z68.28 Body mass index [BMI] 28.0-28.9, adult; Z71.3 Dietary counseling and surveillance
CPT/HCPCS: 97802

== ENCOUNTER 2024-02-25 15:51 | Outpatient (CLI) | payer BC, SELFPAY ==
--- NOTE | ~2024-02-25 | CT_ITS ---
CT of the Abdomen and Pelvis: Indication: Epigastric pain Technique: 2.5 mm axial scans were obtained through the abdomen and pelvis following intravenous adm inistration of 100 cc of Omnipaque 350. Dose reduction technique was used on this scan by utilizing a utomated exposure control and iterative reconstruction technique. The dose-length product (DLP) was 6 20.45 mGy-cm. COMPARISON: 12/11/2022 Findings: Scans through the lung bases are unremarkable. Cholecystectomy clips and pneumobilia present. Tiny hypodensity in the posterior right hepatic lobe i s similar to prior exam, too small to accurately characterize. The spleen, pancreas, adrenals and kid neys are within normal limits. No evidence of aortic aneurysm. No lymphadenopathy. No bowel obstruction or bowel wall thickening. There is no evidence to suggest acute appendicitis. Images through the pelvis were performed. Urinary bladder unremarkable. No pelvic mass seen. No ascit es. Impression: No acute abnormality. Stable tiny hepatic hypodensity, too small to accurately characterize, of doubtful clinical significa nce. Reviewed, dictated and finalized at location M. Impression: No acute abnormality. Stable tiny hepatic hypodensity, too small to accurately characterize, of doubt ful clinical significance.
== END 2024-02-25 15:52 | disposition home or self-care (01) ==
LOC: CHSIMG 15:52
PROVIDERS: PCP Internal Medicine; Visit Provider Internal Medicine
DX: R10.13 Epigastric pain (principal)
CPT/HCPCS: 74177; Q9967

== ENCOUNTER 2024-05-23 06:50 | Outpatient (CLI) | payer BC, SELFPAY ==
[2024-05-23 07:06] LABS: Hematocrit 45.2 % (35.0-49.0); Hemoglobin 15.2 g/dL (12.0-15.0); Mean Corpuscular HGB Conc 33.6 g/dL (32-36); Mean Corpuscular Hemoglobin 30.7 pg (27.0-31.0); Mean Corpuscular Volume 91.3 fL (78.0-102.0); Mean Platelet Volume 11.1 fl (9.2-11.8); Platelet Count Result 248 K/mm3 (150-420); Red Blood Count 4.95 M/mm3 (4.20-5.40); Red Cell Distribution Width 12.2 % (11.6-14.4); White Blood Count 5.1 K/mm3 (4.8-10.8)
[2024-05-23 08:25] LABS: Alanine Aminotransferase 61 U/L (14-59); Albumin Level 4.2 g/dL (3.4-5.0); Alkaline Phosphatase 67 U/L (46-116); Anion Gap 8 mmol/L (4-12); Aspartate Amino Transferase 15 U/L (15-37); Bilirubin,Total 0.6 mg/dL (0.00-1.00); Blood Urea Nitrogen 23 mg/dL (7-18); Calcium 9.8 mg/dL (8.5-10.1); Carbon Dioxide 30 mmol/L (21-32); Chloride 102 mmol/L (98-108); Cholesterol 223 mg/dL (0-200); Estimated Glomerular Filt Rate 52; Glucose 95 mg/dL (70-99); HDL Direct 56 mg/dL (40-60); LDL Cholesterol Calculated 137 mg/dL (<130); Osmolality Calculated 293 mOsm/kg (285-295); Potassium 4.6 mmol/L (3.5-5.1); Sodium 140 mmol/L (136-145); Thyroid Stimulating Hormone 1.26 uIU/mL (0.36-3.74); Total Protein 7.7 g/dL (6.4-8.2); Triglycerides 152 mg/dL (0-150); Vitamin B12 1373 pg/mL (193-986)
[2024-05-24 11:27] LABS: Vitamin D 25 Hydroxy 53 ng/mL (30-100)
== END 2024-05-23 06:51 | disposition home or self-care (01) ==
LOC: CHSLAB 06:52
PROVIDERS: PCP Family Medicine; Visit Provider Family Medicine
DX: Z00.00 Encounter for general adult medical examination without abnormal findings (principal); K58.9 Irritable bowel syndrome, unspecified; G43.909 Migraine, unspecified, not intractable, without status migrainosus; F41.1 Generalized anxiety disorder; J44.9 Chronic obstructive pulmonary disease, unspecified
CPT/HCPCS: 36415; 80053; 80061; 82306; 82607; 84443; 85027

== ENCOUNTER 2024-06-28 13:59 | Outpatient (CLI) | payer BC, SELFPAY ==
--- NOTE | ~2024-06-28 | CT_ITS ---
EXAMINATION:CT lung screening DATE: 06/28/2024 14:18 INDICATION: Personal history of nicotine dependence. Smoker who quit 8 years ago with 40 pack year hi story. TECHNIQUE: Computed tomography (CT) of the chest was performed without intravenous contrast. Automate d exposure control and iterative reconstruction technique were employed. The dose-length product (DLP ) was 79.72 mGy-cm. COMPARISON: Chest CT 03/13/2023 FINDINGS: There is mild emphysema. There is mild atelectasis bilaterally. A calcified right lung nodu le and calcified right hilar lymph nodes are consistent with old granulomatous disease. There is mild scarring at left lung apex. There is a 3 mm nodule in lingula. There is a new 4 mm nodule in lingula abutting the major fissure. No pleural effusion. The heart size is normal. There are coronary artery calcifications. No pericardial effusion. Pneumobilia is noted, likely secondary to sphincterotomy. T here are changes of cholecystectomy. Breast implants are noted. There is a 10 mm nodule in right thyr oid lobe, likely not clinically significant. There is mild thoracic spondylosis. IMPRESSION: 1. Lung-RADS category 3: Probably benign. Further evaluation is recommended with noncontrast low-dose chest CT in 6 months. Reviewed, dictated and finalized at location A. MAIL CLERK IMPRESSION: 1. Lung-RADS category 3: Probably benign. Further evaluation is recommended wit h noncontrast low-dose chest CT in 6 months.
== END 2024-06-28 14:00 | disposition home or self-care (01) ==
PROVIDERS: PCP Family Medicine; Visit Provider Family Medicine
DX: Z12.2 Encounter for screening for malignant neoplasm of respiratory organs (principal); Z87.891 Personal history of nicotine dependence
CPT/HCPCS: 71271

== ENCOUNTER 2024-07-18 10:21 | Outpatient (CLI) | payer BC, SELFPAY ==
--- NOTE | ~2024-07-18 | XR_ITS ---
XR abdomen/kub 1V Ordering provider: Vance Isbell MD History: . R07.81 - Pleurodynia . Comparison: None. FINDINGS: BOWEL: Nonobstructive bowel gas pattern. ORGANOMEGALY: None. SIGNIFICANT PATHOLOGIC CALCIFICATIONS: None. OTHER: No free air is seen under the diaphragm. IMPRESSION: NO ACUTE ABDOMINAL FINDINGS. Reviewed, dictated and finalized at location A. ENGER REPRESENTATIVE
--- NOTE | ~2024-07-18 | XR_ITS ---
XR_RIBSRTCXR1_CR Ordering provider: Vance Isbell MD History: . R07.81 - Pleurodynia . Comparison: None. FINDINGS: BONES: No acute rib fracture. Postoperative changes in the right humerus. MEDIASTINUM: The cardiac silhouette is not enlarged. LUNGS: No infiltrates, effusions or pneumothorax. OTHER: No free air under the diaphragm. IMPRESSION: 1. No right rib fracture 2. No acute cardiopulmonary findings. Reviewed, dictated and finalized at location A. NER PELTS
== END 2024-07-18 10:22 | disposition home or self-care (01) ==
PROVIDERS: PCP Family Medicine; Visit Provider Family Medicine
DX: Z39.0 Encounter for care and examination of mother immediately after delivery (principal); R07.81 Pleurodynia; M54.9 Dorsalgia, unspecified
CPT/HCPCS: 71101; 74018

== ENCOUNTER 2024-11-09 07:09 | Outpatient (CLI) | payer BC, SELFPAY ==
--- OUTSIDE RECORDS SUMMARY | 2024-11-09 07:14 | XMS_ITS | Encounter Summary ---
Author Organization [facility] Address [address] [place] [address] Care Team Providers Care A/C Tech Name Role Phone Gildardo Garcia MD Primary Care Provider [phone] Encounter Details Date Type Department Care Team (Late st Contact Info) Description 05/28/2022 [employer] Message Enc [facility] [address], [address] [address] Noam Pearson MD [address] [place] [id number] Visit Follow Up Social History Tobacco Use Types Packs/Day Years Used Date Smoking Tobacco: Never Smokeless Tobacco: Former Comments No Sex and Gender Information Value Date Recorded Sex Assigned at Not on file Legal Sex Female 6:25 PM CDT Gender Identity Not on file Sexual Orientation Not on file COVID-19 Exposure Response Date Recorded In the last 10 days, have yo u been in contact with someone who was confirmed or suspected to have Coronavirus/COVID-19? No / Unsure 05/28/2022 2:48 PM CDT documented as of this encounter Plan of Treatment Not on file documented as of this encounter Visit Diagnoses Not on filedocumented in this encounter Care Teams A/C Tech Relationship Specialty Start Date End Date Gildardo Garcia MD [address] [place] [id number] PCP - General INTERNAL MEDICINE 04/16/21 documented as of this encounter
--- OUTSIDE RECORDS SUMMARY | 2024-11-09 07:14 | XMS_ITS ---
Author Organization Unknown Address [address] [place] [phone] Phone Care Team Providers Care Academic Director Name Role Phone IRENE Robb Attending Unavailable BRIAN MIRANDA RHIT Unavailable CHARLEEN MCMILLAN Primary Unavailable Immunization Immunization Date Status Additional Notes Code Code System Tdap 05/04/2019 Completed 115 CVX zoster recombinant 08/23/2020 Completed 187 CVX zoster recombinant 02/15/2021 Completed 187 CVX COVID-19, mRNA, LNP-S, PF, 3 0 mcg/0.3 mL dose 09/28/2020 Completed 208 CVX COVID-19, mRNA, LNP-S, PF, 3 0 mcg/0.3 mL dose 10/19/2020 Completed 208 CVX COVID-19, mRNA, LNP-S, PF, 3 0 mcg/0.3 mL dose 07/05/2021 Completed 208 CVX Social History Type Status Start Date End Date Code Code Syst em Smoking History Former smoker 4863960 SNOMED CT Sex Female Vital Signs Vital Sign Value Unit [place] Value [place] Unit Date/Time Recent/Initial? Code Code System Body Mass Index 28.87 kg/m2 03/29/2024 07:41 Most Recent 40663 -5 LOINC Body Mass Index 28.87 kg/m2 03/21/2024 14:45 Initial 81596 -5 LOINC Systolic Blood Pressure 113 mm[Hg] 03/29/2024 07:39 Initial 8480- 6 LOINC Diastolic Blood Pressure 75 mm[Hg] 03/29/2024 07:39 Initial 8462- 4 LOINC Body Surface Area 1.81 m2 03/29/2024 07:41 Most Recent 3140- 1 LOINC Body Surface Area 1.81 m2 03/21/2024 14:45 Initial 3140- 1 LOINC Height 160.020 0 cm 63.00 in 03/29/2024 07:41 Most Recent 8302- 2 LOINC Height 160.020 0 cm 63.00 in 03/21/2024 14:45 Initial 8302- 2 LOINC O2 Saturation 100 % 2023 07:39 Initial 58994 -5 LOINC Pulse 79.0 /min 03/29/2024 07:39 Initial 8867- 4 LOINC Respiration 12 /min 03/29/20 07:39 Initial 9279- 1 INC Temperature 36.3 Emma 97.3 F 03/29/20 07:39 Initial 8310- 5 LOINC Weight 73.94 kg 163.00 lbs 03/29/2024 07:41 Most Recent 67739 -7 LOINC Weight 73.94 kg 163.00 lbs 03/21/2024 14:45 Initial 38754 -7 [facility] Medications Medication Start Date End Date Route Frequency Dose Code Code System Medication Instructions Home Meds Albuterol Sulfate 0.09MG/1Actuation Inhalation Suspension 03/29/2024 Unknown INHALATION ONCE A DAY 1 unit(s) 3989242 RxNorm 1 EACH INHALATION ONCE A DAY Colace 100MG Oral Capsule, Liquid Filled 03/29/2024 Unknown ORAL ONCE A DAY 100 MILLIGRA MS 9461307 RxNorm TAKE 100 MILLIGRAMS ORAL ONCE A DAY Cyclobenzaprine 10MG Oral Tablet 03/29/2024 Unknown ORAL TWICE A DAY 10 MILLIGRA MS 194421 RxNorm TAKE 10 MILLIGRAMS ORAL TWICE A DAY Escitalopram 5MG Oral Tablet 03/29/2024 Unknown ORAL ONCE A DAY 5 MILLIGRA MS 807798 RxNorm TAKE 5 MILLIGRAMS ORAL ONCE A DAY Estradiol 0.5MG Oral Tablet 03/29/2024 Unknown ORAL ONCE A DAY 0.5 MILLIGRA MS 673214 RxNorm TAKE 0.5 MILLIGRAMS ORAL ONCE A DAY Fibercon 625MG Oral Tablet 03/29/2024 Unknown ORAL ONCE A DAY 625 MILLIGRA MS RxNorm TAKE 625 MILLIGRAMS ORAL ONCE A DAY Latanoprost 0.005% Ophthalmic Solution 03/29/2024 Unknown OPHTHALMIC AT BEDTI MS 1 unit(s) 694387 RxNorm 1 EACH OPHTHALMIC AT BEDTIME Linzess 72MCG Oral Capsule 03/29/2024 Unknown ORAL ONCE A DAY 72 MCG 8102481 RxNorm TAKE 72 MCG ORAL ONCE A DAY Meloxicam 15MG Oral Tablet 03/29/2024 Unknown ORAL NEEDE D 15 MILLIGRA MS 596081 RxNorm TAKE 15 MILLIGRAMS ORAL NEEDED Montelukast Sodium 10MG Oral Tablet 03/29/2024 Unknown ORAL ONCE A DAY 10 MILLIGRA MS 797379 RxNorm TAKE 10 MILLIGRAMS ORAL ONCE A DAY Nortriptyline 10MG Oral Capsule 03/29/2024 Unknown ORAL AT BED[facility] ME 19791113 RxNorm TAKE 1-2 CAPSULE ORAL AT BEDTIME Ondansetron 4MG Oral Tablet 03/29/2024 Unknown ORAL NEEDE D 4 TIMES A DAY 4 MILLIGRA MS 747394 RxNorm TAKE 4 MILLIGRAMS ORAL NEEDED 4 TIMES A DAY Pantoprazole Sodium 40 MG Oral Tablet, Delayed Release 03/29/2024 Unknown ORAL ONCE A DAY 40 MG 494560 RxNorm TAKE 40 MG ORAL ONCE A DAY Reglan 10MG Oral Tablet 03/29/2024 Unknown ORAL NEEDE D 4 TIMES A DAY 10 MILLIGRA MS 440288 RxNorm TAKE 10 MILLIGRAMS ORAL NEEDED 4 TIMES A DAY Restasis 0.05% Ophthalmic Emulsion 03/29/2024 Unknown OPHTHALMIC TWICE A DAY 1 unit(s) 9459317 RxNorm 1 EACH OPHTHALMIC TWICE A DAY Rizatriptan Benzoate 5MG Oral Tablet, Disintegrating 03/29/2024 Unknown ORAL DIREC JOAN 5 MILLIGRA MS 142418 RxNorm TAKE 5 MILLIGRAMS ORAL DIRECTED Sucralfate 1GM Oral Tablet 03/29/2024 Unknown ORAL 4 TIMES DAILY 1 GM 409124 RxNorm TAKE 1 GM ORAL 4 TIMES DAILY Unisom 25 MG Oral Tablet 03/29/2024 Unknown ORAL AT BEDTI ME 25 MG 3471048 RxNorm TAKE 25 MG ORAL AT BEDTIME valACYclovir HCl 500MG Oral Tablet 03/29/2024 Unknown ORAL ONCE A DAY 500 MILLIGRA MS 506914 RxNorm TAKE 500 MILLIGRAMS ORAL ONCE A DAY Hospital Discharge Instructions Should you have any questions prior to discharge, please contact a member of your healthcare team. If you have left the hospital and have any questions, please contact your primary care physician. Reason For Referral No Data Found Procedures Procedure Name Date Status Code Code Syste m Breast augmentation completed 01395814 SNOME DCT Anesthesia for upper gastroi ntestinal endoscopic procedures, endoscope int 03/29/2024 completed 30079 CPT Hysterectomy completed 704638786 SNOMEDCT Cholecystectomy completed 34120376 SNOMEDCT Esophagogastroduodenoscopy, flexible, transoral; with biopsy, single or mu 03/29/2024 completed 90555 CPT Sphincterotomy by ERCP completed 145898355 SN OMEDCT EGD completed 937452938 SNOMEDCT Colon completed 46959258 SNOMEDCT Allergies and Adverse Reactions Allergy Substance Reaction Severity Start Date Concern Status Code Code System CODEINE Confusion (SNOMED-CT: 378247008) Active 2670 RxNorm LATEX Active 7044418 RxNorm CITRUS Active 14931493 SNOMED-CT AMITIZA Active 398455 RxNorm MOUNJARO Rash (SNOMED-CT: 384999206), RASH (SNOMED-CT: null), RASH (SNOMED-CT: null) Active 9828338 RxNorm SSRI'S Active 3528656 RxNorm ADHESIVES Rash (SNOMED-CT: 219863253), RASH (SNOMED-CT: null), RASH (SNOMED-CT: null) Active Plan of Treatment MRI ABDOMEN WO (30147) 04/27/2024 EGD 03/29/2024 Encounters Encounter Diagnosis Start Date Code Code Sys tem Unspecified chronic gastritis without bleeding 024 SNOMED-CT Personal Care Team Section Performer Name Performer Role Active Date Inactive Da savanna
--- OUTSIDE RECORDS SUMMARY | 2024-11-09 07:14 | XMS_ITS | Clinical Summary ---
Author Organization [facility] Address [address] [place] [address] Care Team Providers Care Internal Review And Audit Compliance Name Role Phone Gildardo Garcia MD Primary Care Provider [phone] Allergies Active Allergy Reactions Criticality Noted Date Comments Codeine Hallucinations High 06/12/2022 made her crazy Tape Hives 04/10/2021 Latex tape Medications escitalopram 5 MG tablet Take 5 mg by mouth daily. Active montelukast 10 MG tablet Take 10 mg by mouth nightly at bedtime. Active valACYclovir 1 g tablet Take 500 mg by mouth every other day. Active meloxicam 15 MG tablet Take 15 mg by mouth as needed. Active pantoprazole EC 40 MG tablet Take 40 mg by mouth daily. Active nortriptyline 25 MG capsule Take 25 mg by mouth nightly at bedtime. Active estradiol 1 MG tablet Take 1.5 mg by mouth daily. 1 Active Multiple Vitamins-Minera ls (MULTIPLE VITAMINS/WOMENS OR) Active Collagen Hydrolysate, Bovine, Powder Take 1 each by mouth daily. 2 Active FIBERCON 625 MG tablet Take 1 tablet by mouth daily. 2 Active cyclobenzaprine (FLEXERIL) 10 MG tablet Take 1 tablet by mouth as needed. 2 Active diphenhydrAMINE HCl, Sleep, (UNISOM SLEEPGELS) 50 MG Cap Take 1 tablet by mouth nightly. 2 Active albuterol (ACCUNEB) 1.25 MG/3ML nebulizer solution Take 1 ampule by nebulization every 6 (six) hours as needed for Wheezing. Active Plecanatide (TRULANCE) 3 MG Tab Active Active Problems Problem Noted Date Diagnosed Date Biceps tendinopathy of right upper extremity Osteoarthritis of right acromioclavicular joint 05/28/2022 Impingement syndrome, shoulder, right 05/28/2022 Nontraumatic incomplete tear of right rotator cu ff 05/28/2022 Superior glenoid labrum lesi on of right shoulder, initial encounter 05/28/2022 Family History Medical History Relation Comments Cancer Father Cancer Maternal Grandmother Cancer Mother Relation Status Comments Father Maternal Grandmother Mother Social History Tobacco Use Types Packs/Day Years Used Date Smoking Tobacco: Former Smokeless Tobacco: Former Tobacco Cessation:Counseling Given: Not Answered Alcohol Use Standard Drinks/Week Comments Yes 0 (1 standard drink = 0.6 oz pur e alcohol) rarely Comments No Sex and Gender Information Value Date Recorded Sex Assigned at Not on file Legal Sex Female 6:25 PM CDT Gender Identity Not on file Sexual Orientation Not on file Last Filed Vital Signs Vital Sign Reading Time Taken Comments Blood Pressure 135/80 06/19/2022 1:30 PM [employer] Pulse 89 06/19/2022 1:30 PM [employer] Temperature 36.3 C (97.4 F) 06/19/2022 1:30 PM [employer] Respiratory Rate 20 06/19/2022 1:30 PM [employer] Oxygen Saturation 93% 06/19/2022 1:30 PM [employer] Inhaled Oxygen Concentration - - Weight 77.1 kg (170 lb) 09/24/2022 4:13 PM [employer] Height 160 cm (5' 3 ) 09/24/2022 4:13 PM [employer] Body Mass Index 30.11 09/24/2022 4:13 PM [employer] Plan of Treatment Health Maintenance Due Date Last Done Comments Annual Physical 1965 Hepatitis C 1980 DTaP, Tdap and Td Vaccines ( 1 - Tdap) 1981 Mammogram Screening 2002 COVID-19 Vaccine (3 - 2023-2 5 season) 2024 10/19/2020, 09/28/2020 Influenza Adult (#1) 2024 Colorectal Cancer Screening Colonoscopy (10 Years) 04/16/2031 04/16/2021, 04/16/2021 RSV Immunization or 60+ Years (1 - 1-dose 75+ series) 2037 Zoster Vaccines Completed 02/15/2021, 08/23/2020 Meningococcal B Vaccine Aged Out No l onger eligible based on patient's age to complete this topic Meningococcal Vaccine Aged Out No malick wili eligible based on patient's age to complete this topic Pneumococcal Vaccine: Pediatrics (0 to 5 Years) and At-Risk Patients (6 to 64 Years) Aged Out No longer eligible b ased on patient's age to complete this topic RSV Immunizations Under 20 Months Aged Out No longer eligible b ased on patient's age to complete this topic Medical Devices Implanted Type Area Special Deputy Sheriff Device Identifier Shelf Expiration Date Model / Serial / Lot Deaver Suture Bio-Swivelock C [employer] - [id number] Implanted:Qty: 1 on 06/19/2022 by Noam Pearson MD at [facility] Deaver Right: Shoulder [employer] [id number] 11/07/[address] / / [id number] Deaver Suture Bio-Swivelock C [employer]rex White/Black 4.75 X 19.1mm - [id number] Implanted:Qty: 1 on 06/19/2022 by Noam Pearson MD at [facility] Deaver Right: Shoulder [employer] [id number] 11/07/2025 AR-2324BC CTT / / [id number] Deaver Suture Swivelock Self Punch 24.5mm Biocomposite - [id number] Implanted:Qty: 1 on 06/19/2022 by Noam Pearson MD at [facility] Deaver Right: Shoulder [employer] [id number] 02/06/2026 AR-2324BC M / / [id number] Deaver Suture Swivelock Self Punch 24.5mm Biocomposite - [id number] Implanted:Qty: 1 on 06/19/2022 by Noam Pearson MD at [facility] Deaver Right: Shoulder [employer] [id number] 02/06/2026 AR-2324BC M / / [id number] Deaver Suture Swivelock Self Punch 24.5mm Biocomposite - [id number] Implanted:Qty: 1 on 06/19/2022 by Noam Pearson MD at [facility] Right: Shoulder [employer] [id number] 02/06/2026 AR-2324BC M / / [id number] Implant System, Proximal Tenodesis Implanted:Qty: 1 on 06/19/2022 by Noam Pearson MD at [facility] Right: Shoulder [employer] [id number] 01/07/2027 AR-2290 / / [id number] Procedures Procedure Name Priority Date/Time Associated Diagnosis Comments COLONOSCOPY Routine 04/16/2021 5:31 AM CDT from Last 3 Months or Most Recently Relevant to Health Maintenance Insurance [employer] Care Teams Internal Review And Audit Compliance Relationship Specialty Start Date End Date Gildardo Garcia MD [address] [place] [address] PCP - General INTERNAL MEDICINE 04/16/21
--- OUTSIDE RECORDS SUMMARY | 2024-11-09 07:14 | XMS_ITS ---
Author Organization Unknown Address [address] [place] [phone] Phone Care Team Providers Care Completions Manager Name Role Phone KALEN Recinos Attending Unavailable CHARLEEN MCMILLAN Primary Unavailable Immunization Immunization [...] mcg/0.3 mL dose 07/05/2021 Completed 208 CVX Results MRI ABDOMEN W/O CONTRAST - C ompleted: 04/27/2024 10:10 LOINC: EXAM DESCRIPTION: MRI ABDOMEN W/O CONTRAST REASON FOR STUDY: MRCP protocol. 3 months of G.I. s/s, including: RUQ pain, originating in the back, migrating to the middle, intermittently light-colored stools, longer-range constipation (5 yrs, w/IBS dx); 36-hr exacerbated episodes, once per week, now; hx of pancreatitis c.2015, for which the pt was hospitalized. No traumatic incidents noted. Duration: 3 months of regular G.I. s/s. Previous Surgery: CHOLECYSTECTOMY (c.2011) and SPHINCTEROTOMY, AMP[place]A OF VATER (c.2015). TECHNIQUE: MRI of the abdomen performed without intravenous contrast according to the MRCP protocol. All images stored on PACS. COMPARISON: None FINDINGS: LOWER CHEST: Bilateral breast implants. No effusion. LIVER: Normal-sized liver with homogeneous parenchymal signal. 7 mm T2 hyperintense lesion in the right hepatic lobe, likely hepatic cyst (4001/11) no suspicious lesion.. GALLBLADDER: Surgically absent. BILE DUCTS: No intrahepatic or extrahepatic ductal dilatation. Common bile duct measures 5 mm. No intraluminal filling defects. SPLEEN: Normal size. No focal lesions. PANCREAS: No masses. No adjacent inflammation or peripancreatic fluid collections. Pancreatic duct not dilated. ADRENALS: Normal. KIDNEYS/URINARY TRACT: No solid masses. No cysts. No hydronephrosis or hydroureter. GI: Moderate right colonic stool burden. Abnormal bowel dilatation or wall thickening. PERITONEUM: No ascites. RETROPERITONEUM: No mass or adenopathy. VASCULATURE: No abdominal aortic aneurysm. MUSCULOSKELETAL: No acute findings. OTHER: No other abnormality. IMPRESSION: No acute findings in the abdomen. Status post cholecystectomy. No biliary ductal dilatation. Right hepatic cyst. THIS IS AN ELECTRONICALLY VERIFIED FINAL REPORT 04/27/2024 3:00 PM - Electronically signed by Aure Rutherford M.D. FT: FT Report ID: [id number] Reading Location: [place] [address] Social History Type Status Start Date End Date Code Code Syst em Smoking History Former smoker 8128066 SNOMED CT Sex Female Medications Medication Start Date End Date Route Frequency Dose Code Code System Medication Instructions Home Meds Albuterol Sulfate 0.09MG/1Actuation Inhalation Suspension 03/29/2024 Unknown INHALATION ONCE A DAY 1 unit(s) 4360109 RxNorm 1 EACH INHALATION ONCE A DAY Colace 100MG Oral Capsule, Liquid Filled 03/29/2024 Unknown ORAL ONCE A DAY 100 MILLIGRA MS 5427239 RxNorm TAKE 100 MILLIGRAMS ORAL ONCE A DAY Cyclobenzaprine 10MG Oral Tablet 03/29/2024 Unknown ORAL TWICE A DAY 10 MILLIGRA MS 829500 RxNorm TAKE 10 MILLIGRAMS ORAL TWICE A DAY Escitalopram 5MG Oral Tablet 03/29/2024 Unknown ORAL ONCE A DAY 5 MILLIGRA MS 258006 RxNorm TAKE 5 MILLIGRAMS ORAL ONCE A DAY Estradiol 0.5MG Oral Tablet 03/29/2024 Unknown ORAL ONCE A DAY 0.5 MILLIGRA MS 341631 RxNorm TAKE 0.5 MILLIGRAMS ORAL ONCE A DAY Fibercon 625MG Oral Tablet 03/29/2024 Unknown ORAL ONCE A DAY 625 MILLIGRA MS RxNorm TAKE 625 MILLIGRAMS ORAL ONCE A DAY Latanoprost 0.005% Ophthalmic Solution 03/29/2024 Unknown OPHTHALMIC AT [facility] 1 unit(s) 962243 RxNorm 1 EACH OPHTHALMIC AT BEDTIME Linzess 72MCG Oral Capsule 03/29/2024 Unknown ORAL ONCE A DAY 72 MCG 2857635 RxNorm TAKE 72 MCG ORAL ONCE A DAY Meloxicam 15MG Oral Tablet 03/29/2024 Unknown ORAL NEEDE D 15 MILLIGRA MS 044570 RxNorm TAKE 15 MILLIGRAMS ORAL NEEDED Montelukast Sodium 10MG Oral Tablet 03/29/2024 Unknown ORAL ONCE A DAY 10 MILLIGRA MS 497099 RxNorm TAKE 10 MILLIGRAMS ORAL ONCE A DAY Nortriptyline 10MG Oral Capsule 03/29/2024 Unknown ORAL AT [facility] 583817 RxNorm TAKE 1-2 CAPSULE ORAL AT BEDTIME Ondansetron 4MG Oral Tablet 03/29/2024 Unknown ORAL NEEDE D 4 TIMES A DAY 4 MILLIGRA MS 943104 RxNorm TAKE 4 MILLIGRAMS ORAL NEEDED 4 TIMES A DAY Pantoprazole Sodium 40 MG Oral Tablet, Delayed Release 03/29/2024 Unknown ORAL ONCE A DAY 40 MG 033236 RxNorm TAKE 40 MG ORAL ONCE A DAY Reglan 10MG Oral Tablet 03/29/2024 Unknown ORAL NEEDE D 4 TIMES A DAY 10 MILLIGRA MS 339323 RxNorm TAKE 10 MILLIGRAMS ORAL NEEDED 4 TIMES A DAY Restasis 0.05% Ophthalmic Emulsion 03/29/2024 Unknown OPHTHALMIC TWICE A DAY 1 unit(s) 9566663 RxNorm 1 EACH OPHTHALMIC TWICE A DAY Rizatriptan Benzoate 5MG Oral Tablet, Disintegrating 03/29/2024 Unknown ORAL DIREC JOAN 5 MILLIGRA MS 656467 RxNorm TAKE 5 MILLIGRAMS ORAL DIRECTED Sucralfate 1GM Oral Tablet 03/29/2024 Unknown ORAL 4 TIMES DAILY 1 GM 741842 RxNorm TAKE 1 GM ORAL 4 TIMES DAILY Unisom 25 MG Oral Tablet 03/29/2024 Unknown ORAL AT [facility] 25 MG 3679542 RxNorm TAKE 25 MG ORAL AT BEDTIME valACYclovir HCl 500MG Oral Tablet 03/29/2024 Unknown ORAL ONCE A DAY 500 MILLIGRA MS 605768 RxNorm TAKE 500 MILLIGRAMS ORAL ONCE A DAY Hospital Discharge Instructions Should you have any questions prior to discharge, please contact a member of your healthcare team. If you have left the hospital and have any questions, please contact your primary care physician. Reason For Referral No Data Found Allergies and Adverse Reactions Allergy Substance Reaction Severity Start Date Concern Status Code Code System CODEINE Confusion (SNOMED-CT: 623170674) Active 2670 RxNorm LATEX Active 4893617 RxNorm CITRUS Active 27436282 SNOMED-CT AMITIZA Active 996669 RxNorm MOUNJARO Rash (SNOMED-CT: 492511414), RASH (SNOMED-CT: null), RASH (SNOMED-CT: null) Active 3649754 RxNorm SSRI'S Active 9011730 RxNorm ADHESIVES Rash (SNOMED-CT: 243423069), RASH (SNOMED-CT: null), RASH (SNOMED-CT: null) Active Plan of Treatment MRI ABDOMEN WO (68707) 04/27/2024 EGD 03/29/2024 Encounters Encounter Diagnosis Start Date Code Code Sys tem Other specified diseases of liver 04/27/2024 SNOMED-CT Personal Care Team Section Performer Name Performer Role Active Date Inactive Da te Imaging Narrative Notes
--- OUTSIDE RECORDS SUMMARY | 2024-11-09 07:14 | XMS_ITS | Clinical Summary ---
Author Organization [facility] Address [address] [place] [address] Care Team Providers Care Material Control Associate Name Role Phone Vance Isbell MD Primary Care Provider [phone] Source Comments [facility],non-owned Affiliates and Associated Physician Practices is amultiple site organization consisting of ambulatory clinics and hospital sitesin [place], [place], [place] and [place]. This disclosure is being madepursuant to the Care Everywhere program and may not contain all information available regarding this patient. Last updated 18.[facility] Allergies Active Allergy Reactions Criticality Noted Date Comments Adhesive Sensitivity Other 05/03/2019 blisters Codeine Psychiatric High made her crazy Weston Fruit Other 05/10/2023 Medications * Be aware that medications may not be up to date on this document. Alwaysverify current medications with the patient. Medication Sig Dispensed Refills Start Date End Date Status PROAIR HFA 108 (90 BASE) MCG/ACT inhaler 12/21/2017 Active nortriptyline (PAMELOR) 10 MG capsule Take 2 (two) capsules by mouth at bedtime Active montelukast (SINGULAIR) 10 MG tablet Take 1 (one) tablet by mouth at bedtime Active MULTIPLE VITAMIN PO Take by mouth once daily Active escitalopram (LEXAPRO) 5 MG tablet Take 1 (one) tablet by mouth once daily 07/29/2019 Active plecanatide (TRULANCE) 3 MG tablet Take 1 (one) tablet by mouth once daily Active pantoprazole EC (PROTONIX) 40 MG tablet 06/07/2021 Active calcium polycarbophil (FiberCon) 625 MG tablet Take 1 (one) tablet by mouth once daily 10/15/2021 Active cyclobenzaprine (Flexeril) 10 MG tablet Take 1 (one) tablet by mouth as needed 01/09/2022 Active diphenhydrAMINE HCl, Sleep, (Unisom Sleepgels) 50 MG Take 1 tablet by mouth at bedtime 05/21/2022 Active estradiol (Estrace) 1 MG tablet Take 2 (two) tablets by mouth once daily 180 tablet 3 05/29/2022 Active valACYclovir (Valtrex) 500 MG tablet Take 1 (one) tablet by mouth 2 times daily 60 tablet 11 05/29/2022 Active Progesterone 100 MG capsule 04/14/2023 Active Linzess 72 MCG capsule Take 1 (one) capsule by mouth once daily Active Reglan 10 MG tablet TAKE 10 MILLIGRAMS ORAL NEEDED 4 TIMES A DAY 03/29/2024 Active tolterodine ER 24hr (Detrol LA) 4 MG capsule Take 1 (one) capsule by mouth once daily 30 capsule 2 10/18/2024 Active spironolactone (Carospir) 25 MG/5ML SUSP suspension 02/09/2023 5 Discontinue d(List Clean-Up) tirzepatide (Mounjaro) 2.5 MG/0.5ML injection 04/07/2023 5 Discontinue d(List Clean-Up) Active Problems Problem Noted Date Diagnosed Date Urgency of urination 07/28/2019 Urinary, incontinence, stress female Midline cystocele Encounters Date Type Department Care Team Description 10/18/2024 10:30 AM CDT Office Visit [facility] - MANAGER MARKET RESEARCH [address] [place] [address] Juan Sears Che, MD OAB (overactive bladder) (Primary Dx); Urge incontinence 10/17/2024 Travel from Last 3 Months Family History Medical History Relation Name Comments Cancer - Colon Mother Diabetes - Type 2 Paternal Grandmother Cancer - Breast Neg Hx Cancer - Ovarian Neg Hx Relation Name Status Comments Mother Paternal Grandmother Social History Tobacco Use Types Packs/Day Years Used Date Smoking Tobacco: Former Cigarettes Q uit: 09/10/2015 Smokeless Tobacco: Never Tobacco Cessation:Counseling Given: Not Answered Alcohol Use Standard Drinks/Week Comments Yes 0 (1 standard drink = 0.6 oz pur e alcohol) glass of wine AUDIT-C Answer Date Recorded Frequency of Alcohol Consumption Not on file 06/20/2019 Average Number of Drinks 3 or 4 019 Frequency of Binge Drinking Not on file 06/10 PHQ-2 Answer Date Recorded Patient Health Questionnaire-2 Score 1 10/18/2024 Sex and Gender Information Value Date Recorded Sex Assigned at Not on file Gender Identity Not on file Sexual Orientation Not on file Last Filed Vital Signs Vital Sign Reading Time Taken Comments Blood Pressure 130/72 10/18/2024 10:49 AM CDT Pulse 93 05/29/2022 2:08 PM CDT Temperature 36.4 C (97.6 F) 05/12/2023 3:01 PM CDT Respiratory Rate 16 06/21/2019 8:48 AM DONOR SERVICES TEAM LEADER Oxygen Saturation 95% 05/29/2022 2:08 PM CDT Inhaled Oxygen Concentration - - Weight 80.6 kg (177 lb 12.8 oz) 025 10:49 AM CDT Height 160 cm (5' 3 ) 10/18/2024 10:49 AM CDT Body Mass Index 31.5 10/18/2024 10:49 AM CDT Plan of Treatment Upcoming Encounters Date Type Department Care Team (Late st Contact Info) Description 02/03/2025 3:30 PM CDT Office Visit [facility] - MANAGER MARKET RESEARCH [address], [address] [address] Juan Sears Che, MD [address] [address] 07/19/2025 11:30 AM DONOR SERVICES TEAM LEADER Office Visit [facility] - MANAGER MARKET RESEARCH [address] [address] Juan Sears Che, MD [address] [address] Health Maintenance Due Date Last Done Comments COLOGUARD (AGES 45-75) - COLON CA SCREENING [address] COLONOGRAPHY - COLON CA SCREENING 1962 FIT - COLON CA SCREENING 1962 FLEX SIG - COLON CA SCREENING 1962 LIPID TESTING 1962 HIV SCREENING 1977 HEPATITIS C SCREENING 10/22/1980 DTAP/TDAP/TD VACCINES (1 - Tdap) 1981 PNEUMOCOCCAL VACCINE 50+ (1 of 1 - PCV) 2012 ZOSTER VACCINE (1 of 2) 2012 COVID-19 VACCINE (4 - season) 2024 07/05/2021, 10/19/2020, 09/28/2020 INFLUENZA VACCINE (#1) 2024 SCREENING FOR DIABETES 07/27/2024 MAMMOGRAM 11/26/2024 11/26/2022, 10/10, 11/09/2020, Additional history exists COLONOSCOPY - COLON CA SCREENING 04/16/2031 04/16/2021 Colorectal Cancer Screening 04/16/2031 Respiratory Syncytial Virus (RSV) Vaccine Pt: or over 60 yrs (1 - 1-dose 75+ series) 2037 DEPRESSION SCREENING Completed 10/18/2024, 07/27/2024, 05/08/2023 HEPATITIS B VACCINE Aged Out No longe r eligible based on patient's age to complete this topic HIB VACCINE Aged Out No longer eligi ble based on patient's age to complete this topic HPV VACCINE Aged Out No longer eligi ble based on patient's age to complete this topic MENINGOCOCCAL (Group B) VACCINE SHARED DECISION-MAKING Aged Out No longer eligible based on patient's age to complete this topic MENINGOCOCCAL GROUPS A/C/Y/W VACCINE Aged Out No longer eligible based on patient's age to complete this topic Medical Devices Implanted Type Area Aba Tutor Device Identifier Shelf Expiration Date Model / Serial / Lot Sys Ureth Supp Obtryx Midurethral Trnstr Implanted:Qty: 1 on 06/20/2019 by Juan Sears Che, MD at [facility] 04/25/2022 [id number] / / [id number] Procedures Procedure Name Priority Date/Time Associated Diagnosis Comments KS INSERT NON-INDWELLING BLADDER Routine 10/18/2024 11:01 AM CDT OAB (overactive bladder) Urge incontinence CULTURE URINE COMPREHENSIVE Routine 10/18/2024 10:56 AM CDT OAB (overactive bladder) Urge incontinence URINALYSIS AUTO - POINT OF CARE (AMB) [facility] Routine 10/18/2024 OAB (overactive bladder) Urge incontinence MAMMO BILAT SCREENING W REAGAN Routine 11/26/2022 1:49 PM CDT Visit for screening mammogram from Last 3 Months or Most Recently Relevant to Health Maintenance Results * KS INSERT NON-INDWELLING BLADDER (10/18/2024 11:01 AM CDT) Narrative Juan Sears Che, MD - 10/18/2024 11:01 AM CDT Juan Sears Che, MD 10/18/2024 12:07 PM The patient was prepped with betadine (or with hibiclens or other antiseptic agent if allergic to topical iodine). She understood the rationale for the procedure and agreed to the procedure. A 14F short female catheter was then advanced into the urethra and urine was collected for bedside urinalysis as well as a urine culture and/or formal urinalysis as needed. The post void residual is as noted in the progress note, as are results of the dipstick taken. The patient tolerated the procedure well. Juan Sears MD PROCEDURE/MINOR SURG ICAL ORDERABLES * CULTURE URINE COMPREHENSIVE (10/18/2024 10:56 AM CDT) Pathologist [facility] Culture [facility] Comment: CULTURE, URINE, SPECIAL Micro Number: [id number] Test Status: Final Specimen Source: Urine, catheter Specimen Quality: Adequate Result: No Growth Test Performed at: [id number] [address] [place] MD Microbiology URINE SPECIMEN COLLECTION, CATHETERIZED / Unknown 10/18/2024 10:56 AM CDT 10/19/2024 3:15 AM CDT Juan Sears MD LAB - MICROBIOLOGY O RDERABLES [facility] [address] [place] [address] * URINALYSIS AUTO - POINT OF CARE (AMB) [facility] (10/18/2024) Glucose UA neg OTHER LAB Bilirubin UA POCT neg OTHER LAB Ketones UA POCT neg OTHER LAB Specific [place] UA 1.005 OTHER LAB Blood Urine POCT neg OTHER LAB pH UA 6.0 OTHER LAB Protein UA neg OTHER LAB Urobilinogen UA 0.2 OTHER LAB Nitrite UA neg OTHER LAB WBC UA neg OTHER LAB Urine URINE / Unknown 10/18/2024 Juan Sears MD LAB - POINT OF CARE ORDERABLES Performing Organization Address City/[facility]/ZIP Co de Phone Number OTHER LAB * MAMMO BILAT SCREENING W REAGAN (11/26/2022 1:49 PM CDT) Anatomical Region Laterality Modality Breast Bilateral Mammography 11/26/2022 2:55 PM CDT Impressions 11/26/2022 2:57 PM CDT : Annual screening mammography is recommended. OVERALL FINAL ASSESSMENT: BI-RADS Category 2: Benign. > Interpreting Provider: Pamella Naylor MD on 11/26/2022 2:57 PM Narrative 11/26/2022 2:57 PM CDT EXAMINATION: BILATERAL DIGITAL SCREENING MAMMOGRAM AND BILATERAL BREAST TOMOSYNTHESIS HISTORY: Screening. COMPARISON: Serial examinations dating back to 08/15/2019 ([facility] and this facility TECHNIQUE: BILATERAL digital breast tomosynthesis (DBT) and synthetic 2D digital mammogram images were obtained (bilateral craniocaudal and mediolateral oblique projections) including computer aided detection (CAD) with implants displaced posteriorly. Bilateral full Field digital craniocaudal and mediolateral oblique projections were obtained to include the breasts in their entirety. 9 projections total. BREAST PARENCHYMAL COMPOSITION: Category B: There are scattered areas of fibroglandular density. MAMMOGRAM FINDINGS: There is no suspicious finding in either breast. There are bilateral subpectoral silicone implants. Overall, there has been no significant interval change. Gildardo Garcia MD MAMMO ORDERABLES from Last 3 Months or Most Recently Relevant to Health Maintenance Care Teams Material Control Associate Relationship Specialty Start Date End Date Vance Isbell MD [address] [place] [address] PCP - General Family Medicine 07/27/24
--- OUTSIDE RECORDS SUMMARY | 2024-11-09 07:14 | XMS_ITS | Clinical Summary ---
Author Organization [facility] Care Team Providers Care Craps Manager Name Role Phone Unavailable Primary Care Provider Unavailabl e Social History Tobacco Use Types Packs/Day Years Used Date Smoking Tobacco: Never Assessed Comments Unknown Sex and Gender Information Value Date Recorded Sex Assigned at Not on file Legal Sex Female 10:01 PM CDT Gender Identity Not on file Sexual Orientation Not on file Plan of Treatment Not on file
--- OUTSIDE RECORDS SUMMARY | 2024-11-09 07:14 | XMS_ITS | Encounter Summary ---
Author Organization [facility] Address [address] [place] [address] Care Team Providers Care Music Artist Name Role Phone Gildardo Garcia MD Primary Care Provider [phone] Vance Isbell MD Primary Care Provider [phone] Reason for Visit * Reason Onset Date Comments Treatment 06/23/2019 Encounter Details Date Type Department Care Team (Late st Contact Info) Description 06/23/2019 Telephone [facility] - REPAIR WEAVER [address] [address] Juan Sears Che, MD [address] [place] [address] [address] [place] [address] Treatment Social History Tobacco Use Types Packs/Day Years Used Date Smoking Tobacco: Former Cigarettes Q uit: 09/10/2015 Smokeless Tobacco: Never Alcohol Use Standard Drinks/Week Comments Yes 0 (1 standard drink = 0.6 oz pur e alcohol) glass of wine AUDIT-C Answer Date Recorded Frequency of Alcohol Consumption Not on file 06/20/2019 Average Number of Drinks 3 or 4 019 Frequency of Binge Drinking Not on file 06/10 Sex and Gender Information Value Date Recorded Sex Assigned at Not on file Gender Identity Not on file Sexual Orientation Not on file documented as of this encounter Miscellaneous Notes * Telephone Encounter - Craig Snyder - 06/23/2019 9:35 AM CST Pt would like a Nurse call to discuss bleeding and Nausea from surgery on 06/20/19 PAD CEMENTER documented in this encounter Plan of Treatment Upcoming Encounters Date Type Department Care Team (Late st Contact Info) Description 02/03/2025 3:30 PM CDT Office Visit [facility] - REPAIR WEAVER [address], [facility] [address] [place] [address] Juan Sears Che, MD [address] [place] [address] [facility] [address] [place] [phone] 07/19/2025 11:30 AM ARCH PAD CEMENTER Office Visit [facility] - REPAIR WEAVER [address], [address] [place] [address] Juan Sears Che, MD [address] [facility] [address] [place] [address] documented as of this encounter Visit Diagnoses Not on filedocumented in this encounter Care Teams Music Artist Relationship Specialty Start Date End Date Gildardo Garcia MD [address] [place] [address] PCP - General 04/20/18 07/26/24 Vance Isbell MD [address] [place], [place] [id number] PCP - General Family Medicine 07/27/24 documented as of this encounter
[2024-11-09 08:11] LABS: Alanine Aminotransferase 29 U/L (14-59); Albumin Level 3.6 g/dL (3.4-5.0); Alkaline Phosphatase 78 U/L (46-116); Anion Gap 9 mmol/L (4-12); Aspartate Amino Transferase 19 U/L (15-37); Bilirubin,Total 0.6 mg/dL (0.00-1.00); Blood Urea Nitrogen 29 mg/dL (7-18); Calcium 9.1 mg/dL (8.5-10.1); Carbon Dioxide 27 mmol/L (21-32); Chloride 104 mmol/L (98-108); Estimated Glomerular Filt Rate 58; Glucose 91 mg/dL (70-99); Osmolality Calculated 295 mOsm/kg (285-295); Potassium 4.4 mmol/L (3.5-5.1); Sodium 140 mmol/L (136-145); Total Protein 7.2 g/dL (6.4-8.2)
[2024-11-10 18:33] LABS: CRP, High Sensitivity 5.6 mg/L
[2024-11-14 20:49] LABS: Apolipoprotein B 142 mg/dL
== END 2024-11-09 07:10 | disposition home or self-care (01) ==
LOC: CHSLAB 07:11
PROVIDERS: PCP Family Medicine; Visit Provider Family Medicine
DX: Z00.00 Encounter for general adult medical examination without abnormal findings (principal); R74.01 Elevation of levels of liver transaminase levels; D75.1 Secondary polycythemia; N17.9 Acute kidney failure, unspecified; K58.9 Irritable bowel syndrome, unspecified; F41.1 Generalized anxiety disorder; K21.9 Gastro-esophageal reflux disease without esophagitis
CPT/HCPCS: 36415; 80053; 82172; 86141

== ENCOUNTER 2024-11-30 19:19 | Emergency (ER) | payer BC, SELFPAY ==
[2024-11-30] VITALS (32 sets, daily range): BP systolic 100–141; BP diastolic 61–91; PULSE 100–113; RESP 10–30; TEMP 36.7–37.3; O2SAT 89–95
--- NOTE | ~2024-11-30 | XR_ITS ---
CHEST RADIOGRAPH CLINICAL HISTORY: chest pain . COMPARISON: None available TECHNIQUE: Single portable view of the chest. FINDINGS The cardiomediastinal silhouette is unremarkable. The lungs are clear. IMPRESSION: No focal infiltrate or effusion. Reviewed, dictated and finalized at location A.
--- OUTSIDE RECORDS SUMMARY | 2024-11-30 19:26 | XMS_ITS | Clinical Summary ---
Author Organization [facility] Address [address] [place] [address] Care Team Providers Care Artificial Flower Maker Name Role Phone Gildardo Garcia MD Primary Care Provider [phone] Allergies Active Allergy Reactions Criticality Noted Date [...] Comments Blood Pressure 135/80 06/19/2022 1:30 PM HATCHERY MANAGER Pulse 89 06/19/2022 1:30 PM HATCHERY MANAGER Temperature 36.3 C (97.4 F) 06/19/2022 1:30 PM HATCHERY MANAGER Respiratory Rate 20 06/19/2022 1:30 PM HATCHERY MANAGER Oxygen Saturation 93% 06/19/2022 1:30 PM HATCHERY MANAGER Inhaled Oxygen Concentration - - Weight 77.1 kg (170 lb) 09/24/2022 4:13 PM HATCHERY MANAGER Height 160 cm (5' 3 ) 09/24/2022 4:13 PM HATCHERY MANAGER Body Mass Index 30.11 09/24/2022 4:13 PM HATCHERY MANAGER Plan of Treatment Health Maintenance Due Date Last Done Comments Annual Physical 1965 Hepatitis C 1980 DTaP, Tdap and Td Vaccines ( 1 - Tdap) 1981 Mammogram Screening 2002 Pneumococcal Vaccine: 50+ Years (1 of 1 - PCV) 2012 COVID-19 Vaccine (2023-2 5 season) 2024 10/19/2020, 09/28/2020 Colorectal Cancer Screening Colonoscopy (10 Years) 04/16/2031 [...] this topic Medical Devices Implanted Type Area Campground Cleaning Attendant Device Identifier Shelf Expiration Date Model / Serial / Lot [place] Suture Bio-Swivelock C Arthrex - [id number] Implanted:Qty: 1 on 06/19/2022 by Noam Pearson MD at [facility] [place] Right: Shoulder [employer] [id number] 11/07/[address] / / [id number] [place] Suture Bio-Swivelock C Arthrex White/Black 4.75 X 19.1mm - [id number] Implanted:Qty: 1 on 06/19/2022 by Noam Pearson MD at [facility] [place] Right: Shoulder [employer] [id number] 11/07/2025 AR-2324BC CTT / / [id number] [place] Suture Swivelock Self Punch 24.5mm Biocomposite - [id number] Implanted:Qty: 1 on 06/19/2022 by Noam Pearson MD at [facility] [place] Right: Shoulder [employer] [id number] 02/06/2026 AR-2324BC M / / [id number] [place] Suture Swivelock Self Punch 24.5mm Biocomposite - [id number] Implanted:Qty: 1 on 06/19/2022 by Noam Pearson MD at [facility] [place] Right: Shoulder [employer] [id number] 02/06/2026 JENNIFER-2324BC M / / [id number] [place] Suture Swivelock Self Punch 24.5mm Biocomposite - [id number] Implanted:Qty: 1 on 06/19/2022 by Noam Pearson MD at [facility] [place] Right: Shoulder [employer] [id number] 02/06/2026 AR-2324BC M / / [id number] Implant System, Proximal Tenodesis Implanted:Qty: 1 on 06/19/2022 by Noam Perason MD at [facility] Right: Shoulder [employer] [id number] 01/07/2027 [id number] / / [id number] Procedures Procedure Name Priority Date/Time Associated Diagnosis Comments COLONOSCOPY Routine 04/16/2021 5:31 AM CDT from Last 3 Months or Most Recently Relevant to Health Maintenance Insurance [facility] [employer] [facility] [employer] [facility] Care Teams Artificial Flower Maker Relationship Specialty Start Date End Date Gildardo Garcia MD [address] [place] [address] PCP - General INTERNAL MEDICINE 04/16/21
--- OUTSIDE RECORDS SUMMARY | 2024-11-30 19:26 | XMS_ITS ---
Author Organization Unknown Address [address] [place] [phone] Phone Care Team Providers Care Consumer Services Advisor Name Role Phone KALEN VELANA Grisel Attending Unavailable CHARLEEN MCMILLAN Primary Unavailable Immunization [...] Aure Rutherford M.D. FT: FT Report ID: [id number] Reading Location: [place] [address] Social History Type Status Start Date End Date Code Code Syst em Smoking History Former smoker 8211423 SNOMED CT Sex Female Medications Medication Start Date End Date Route Frequency Dose Code Code System Medication Instructions Home Meds Albuterol Sulfate 0.09MG/1Actuation Inhalation Suspension 03/29/2024 Unknown INHALATION ONCE A DAY 1 unit(s) 0732065 RxNorm 1 EACH INHALATION ONCE A DAY Colace 100MG Oral Capsule, Liquid Filled 03/29/2024 Unknown ORAL ONCE A DAY 100 MILLIGRA MS 6149924 RxNorm TAKE 100 MILLIGRAMS ORAL ONCE A DAY Cyclobenzaprine 10MG Oral Tablet 03/29/2024 Unknown ORAL TWICE A DAY 10 MILLIGRA MS 408866 RxNorm TAKE 10 MILLIGRAMS ORAL TWICE A DAY Escitalopram 5MG Oral Tablet 03/29/2024 Unknown ORAL ONCE A DAY 5 MILLIGRA MS 699458 RxNorm TAKE 5 MILLIGRAMS ORAL ONCE A DAY Estradiol 0.5MG Oral Tablet 03/29/2024 Unknown ORAL ONCE A DAY 0.5 MILLIGRA MS 190621 RxNorm TAKE 0.5 MILLIGRAMS ORAL ONCE A DAY Fibercon 625MG Oral Tablet 03/29/2024 Unknown ORAL ONCE A DAY 625 MILLIGRA MS RxNorm TAKE 625 MILLIGRAMS ORAL ONCE A DAY Latanoprost 0.005% Ophthalmic Solution 03/29/2024 Unknown OPHTHALMIC AT [facility] 1 unit(s) 505005 RxNorm 1 EACH OPHTHALMIC AT BEDTIME Linzess 72MCG Oral Capsule 03/29/2024 Unknown ORAL ONCE A DAY 72 MCG 7006873 RxNorm TAKE 72 MCG ORAL ONCE A DAY Meloxicam 15MG Oral Tablet 03/29/2024 Unknown ORAL NEEDE D 15 MILLIGRA MS 553003 RxNorm TAKE 15 MILLIGRAMS ORAL NEEDED Montelukast Sodium 10MG Oral Tablet 03/29/2024 Unknown ORAL ONCE A DAY 10 MILLIGRA MS 443370 RxNorm TAKE 10 MILLIGRAMS ORAL ONCE A DAY Nortriptyline 10MG Oral Capsule 03/29/2024 Unknown ORAL AT [facility] 886130 RxNorm TAKE 1-2 CAPSULE ORAL AT BEDTIME Ondansetron 4MG Oral Tablet 03/29/2024 Unknown ORAL NEEDE D 4 TIMES A DAY 4 MILLIGRA MS 599422 RxNorm TAKE 4 MILLIGRAMS ORAL NEEDED 4 TIMES A DAY Pantoprazole Sodium 40 MG Oral Tablet, Delayed Release 03/29/2024 Unknown ORAL ONCE A DAY 40 MG 576827 RxNorm TAKE 40 MG ORAL ONCE A DAY Reglan 10MG Oral Tablet 03/29/2024 Unknown ORAL NEEDE D 4 TIMES A DAY 10 MILLIGRA MS 985984 RxNorm TAKE 10 MILLIGRAMS ORAL NEEDED 4 TIMES A DAY Restasis 0.05% Ophthalmic Emulsion 03/29/2024 Unknown OPHTHALMIC TWICE A DAY 1 unit(s) 5490963 RxNorm 1 EACH OPHTHALMIC TWICE A DAY Rizatriptan Benzoate 5MG Oral Tablet, Disintegrating 03/29/2024 Unknown ORAL DIREC JOAN 5 MILLIGRA MS 979693 RxNorm TAKE 5 MILLIGRAMS ORAL DIRECTED Sucralfate 1GM Oral Tablet 03/29/2024 Unknown ORAL 4 TIMES DAILY 1 GM 620562 RxNorm TAKE 1 GM ORAL 4 TIMES DAILY Unisom 25 MG Oral Tablet 03/29/2024 Unknown ORAL AT [facility] 25 MG 0589961 RxNorm TAKE 25 MG ORAL AT BEDTIME valACYclovir HCl 500MG Oral Tablet 03/29/2024 Unknown ORAL ONCE A DAY 500 MILLIGRA MS 554028 RxNorm TAKE 500 MILLIGRAMS ORAL ONCE A [...] Status Code Code System CODEINE Confusion (SNOMED-CT: 872877041) Active 2670 RxNorm LATEX Active 5370246 RxNorm CITRUS Active 06041854 SNOMED-CT AMITIZA Active 349993 RxNorm MOUNJARO Rash (SNOMED-CT: 970708086), RASH (SNOMED-CT: null), RASH (SNOMED-CT: null) Active 0972887 RxNorm SSRI'S Active 7548937 RxNorm ADHESIVES Rash (SNOMED-CT: 765005325), RASH (SNOMED-CT: null), RASH (SNOMED-CT: null) Active Plan of Treatment MRI ABDOMEN WO ([id number]) 04/27/2024 EGD 03/29/2024 Encounters Encounter Diagnosis Start Date Code Code Sys tem Other specified diseases of liver 04/27/2024 SNOMED-CT Personal Care Team Section Performer Name Performer Role Active Date Inactive Da te Imaging Narrative Notes
--- OUTSIDE RECORDS SUMMARY | 2024-11-30 19:26 | XMS_ITS | Clinical Summary ---
Author Organization [facility] Address [address] [place] [address] Care Team Providers Care Running Rigger Name Role Phone Vance Isbell MD Primary Care Provider [phone] Source Comments [facility],non-owned Affiliates and Associated Physician Practices is amultiple site organization consisting of ambulatory clinics and hospital sitesin [place], [place], [place] and [place]. This disclosure is being madepursuant to the Care Everywhere program and may not contain all information available regarding this patient. Last updated 18.[facility] Allergies Active Allergy Reactions Criticality Noted Date Comments Adhesive Sensitivity Other 05/03/2019 blisters Codeine Psychiatric High made her crazy Loving Fruit Other 05/10/2023 Medications * Be aware that medications may not be up to date on this document. Always verify current medications with the patient. PROAIR HFA 108 (90 BASE) MCG/ACT inhaler 8 Active nortriptyline (PAMELOR) 10 MG capsule Take 2 (two) capsules by mouth at bedtime Active montelukast (SINGULAIR) 10 MG tablet Take 1 (one) tablet by mouth at bedtime Active MULTIPLE VITAMIN PO Take by mouth once daily Active escitalopram (LEXAPRO) 5 MG tablet Take 1 (one) tablet by mouth once daily 9 Active plecanatide (TRULANCE) 3 MG tablet Take 1 (one) tablet by mouth once daily Active pantoprazole EC (PROTONIX) 40 MG tablet 1 Active calcium polycarbophil (FiberCon) 625 MG tablet Take 1 (one) tablet by mouth once daily 2 Active cyclobenzaprine (Flexeril) 10 MG tablet Take 1 (one) tablet by mouth as needed 2 Active diphenhydrAMINE HCl, Sleep, (Unisom Sleepgels) 50 MG Take 1 tablet by mouth at bedtime 2 Active estradiol (Estrace) 1 MG tablet Take 2 (two) tablets by mouth once daily 180 tablet 3 2 Active valACYclovir (Valtrex) 500 MG tablet Take 1 (one) tablet by mouth 2 times daily 60 tablet 11 2 Active Progesterone 100 MG capsule 3 Active Linzess 72 MCG capsule Take 1 (one) capsule by mouth once daily Active Reglan 10 MG tablet TAKE 10 MILLIGRAMS ORAL NEEDED 4 TIMES A DAY 4 Active tolterodine ER 24hr (Detrol LA) 4 MG capsule Take 1 (one) capsule by mouth once daily 30 capsule 2 5 Active Active Problems Problem Noted Date Diagnosed Date Urgency of urination 07/28/2019 Urinary, incontinence, stress female Midline cystocele Encounters Date Type Department Care Team Description 10/18/2024 10:30 AM CDT Office Visit [facility] - CLINICAL EXERCISE PHYSIOLOGIST [address] [place] [address] Juan Sears Che, MD OAB [...] Recorded Patient Health Questionnaire-2 Score 1 10/18/2024 Comments No Sex and Gender Information Value Date Recorded Sex Assigned at Not on file Legal Sex Female 10:38 AM CDT Gender Identity Not on file Sexual Orientation Not on file Last Filed Vital Signs Vital Sign Reading Time Taken Comments Blood Pressure 130/72 10/18/2024 10:49 AM CDT Pulse 93 05/29/2022 2:08 PM CDT Temperature 36.4 C (97.6 F) 05/12/2023 3:01 PM CDT Respiratory Rate 16 06/21/2019 8:48 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 Oxygen Saturation 95% 05/29/2022 2:08 PM CDT [...] CDT Office Visit [facility] - CLINICAL EXERCISE PHYSIOLOGIST [address], [address] [address] Juan Sears Che, MD [address] [place] [address] [place] [phone] 07/19/2025 11:30 AM RAILROAD INSPECTOR Office Visit [facility] - CLINICAL EXERCISE PHYSIOLOGIST [address], [address] [address] Juan Sears Che, MD [address] [address] Health Maintenance Due Date Last [...] (4 - season) 2024 07/05/2021, 10/19/2020, 09/28/2020 SCREENING FOR DIABETES 07/27/2024 MAMMOGRAM 11/26/2024 11/26/2022, 10/10, 11/09/2020, Additional history exists INFLUENZA VACCINE (Season Ended) 2025 COLONOSCOPY - COLON CA SCREENING 04/16/2031 04/16/2021 [...] this topic Medical Devices Implanted Type Area Buckler And Lacer Device Identifier Shelf Expiration Date Model / Serial / Lot Sys Ureth Supp Obtryx Midurethral Trnstr Implanted:Qty: 1 on 06/20/2019 by Juan Sears Che, MD at [facility] 04/25/2022 [id number] / / [id number] Procedures Procedure Name Priority Date/Time Associated Diagnosis Comments RI INSERT NON-INDWELLING BLADDER Routine 10/18/2024 11:01 AM [...] Recently Relevant to Health Maintenance Results * RI INSERT NON-INDWELLING BLADDER (10/18/2024 11:01 AM CDT) [...] the procedure well. Juan Sears MD PROCEDURE/MINOR SURGICAL ORDERA BLES Final Result * CULTURE URINE COMPREHENSIVE (10/18/2024 10:56 AM CDT) Pathologist [facility] Culture QUEST Comment: CULTURE, URINE, SPECIAL Micro Number: [id number] Test Status: Final Specimen Source: Urine, catheter Specimen Quality: Adequate Result: No Growth Test Performed at: My [address] [address] COLLEEN POST MD Microbiology URINE SPECIMEN COLLECTION, CATHETERIZED / Unknown 10/18/2024 10:56 AM CDT 10/19/2024 3:15 AM CDT Juan Sears MD LAB - MICROBIOLOGY ORDERABLES F inal Result [address] [address] * URINALYSIS AUTO - POINT OF CARE (AMB) [facility] (10/18/2024) Glucose UA neg OTHER LAB Bilirubin UA POCT neg OTHER LAB Ketones UA POCT neg OTHER LAB Specific [place] UA 1.005 OTHER LAB Blood Urine POCT neg OTHER LAB pH UA 6.0 OTHER LAB Protein UA neg OTHER LAB Urobilinogen UA 0.2 OTHER LAB Nitrite UA neg OTHER LAB WBC UA neg OTHER LAB Urine URINE / Unknown 10/18/2024 Juan Sears MD LAB - POINT OF CARE ORDERABLES Final Result OTHER LAB * MAMMO BILAT SCREENING W [...] COMPARISON: Serial examinations dating back to 08/15/2019 ([facility] and this facility TECHNIQUE: BILATERAL digital breast [...] interval change. Gildardo Garcia MD MAMMO ORDERABLES Final Result from Last 3 Months or Most Recently Relevant to Health Maintenance Insurance ANTHEM ANTHEM Care Teams Running Rigger Relationship Specialty Start Date End Date Vance Isbell MD [address] [place] [address] PCP - General Family Medicine 07/27/24
--- OUTSIDE RECORDS SUMMARY | 2024-11-30 19:26 | XMS_ITS | Encounter Summary ---
Author Organization [facility] Address [address] [place] [address] Care Team Providers Care Legal Secretary Name Role Phone Gildardo Garcia MD Primary Care Provider [phone] Vance Isbell MD Primary Care Provider [phone] Reason for Visit * Reason Onset Date Comments Treatment 06/23/2019 Encounter Details Date Type Department Care Team (Late st Contact Info) Description 06/23/2019 Telephone [facility] - HOSPITALIST [address] [address] Juan Sears Che, MD [address] [place] [address] [address] [place] [address] Treatment Social History Tobacco Use [...] of Binge Drinking Not on file 06/10 Comments No Sex and Gender Information Value [...] bleeding and Nausea from surgery on 06/20/19 T TECHNICIAN documented in this encounter Plan of Treatment Upcoming Encounters Date Type Department Care Team (Late st Contact Info) Description 02/03/2025 3:30 PM CDT Office Visit [facility] - HOSPITALIST [address], [facility] [address] [place] [address] Juan Sears Che, MD [address] [facility] [address] [place] [phone] 07/19/2025 11:30 AM EVENT TECHNICIAN Office Visit [facility] - HOSPITALIST [address], [facility] [address] [place] [phone] Juan Sears Che, MD [address] [facility] [address] [place] [address] documented as of this encounter Visit Diagnoses Not on filedocumented in this encounter Care Teams Legal Secretary Relationship Specialty Start Date End Date Gildardo Garcia MD [address] [place] [address] PCP - General 04/20/18 07/26/24 Vance Isbell MD [address] [place] [address] PCP - General Family Medicine 07/27/24 documented as of this encounter
--- OUTSIDE RECORDS SUMMARY | 2024-11-30 19:26 | XMS_ITS | Encounter Summary ---
Author Organization [facility] Address [address] [place] [address] Care Team Providers Care Microbiology Instructor Name Role Phone Gildardo Garcia MD Primary Care Provider [phone] Encounter Details Date Type Department Care Team (Late st Contact Info) Description 05/28/2022 Options Away Message Enc [facility] [address], [address] [address] Noam Pearson MD [address] [place] [id number] Visit Follow Up Social History Tobacco Use [...] on filedocumented in this encounter Care Teams Microbiology Instructor Relationship Specialty Start Date End Date Gildardo Garcia MD [address] [place] [address] PCP - General INTERNAL MEDICINE 04/16/21 documented as of this encounter
--- OUTSIDE RECORDS SUMMARY | 2024-11-30 19:26 | XMS_ITS | Clinical Summary ---
Author Organization [facility] Care Team Providers Care Agent Name Role Phone Unavailable Primary Care Provider [...]
--- OUTSIDE RECORDS SUMMARY | 2024-11-30 19:26 | XMS_ITS ---
Author Organization Unknown Address [address] [place] [phone] Phone Care Team Providers Care Television Audio Engineer Name Role Phone IRENE Robb Attending Unavailable BRIAN MIRANDA WOOL MERCHANT Unavailable CHARLEEN MCMILLAN Primary Unavailable Immunization Immunization [...] Code Syst em Smoking History Former smoker 1184328 SNOMED CT Sex Female Vital Signs Vital Sign Value Unit [place] Value [place] Unit Date/Time Recent/Initial? Code Code System Body Mass Index 28.87 kg/m2 03/29/2024 07:41 Most Recent 46803 -5 LOINC Body Mass Index 28.87 kg/m2 03/21/2024 14:45 Initial 11081 -5 LOINC Systolic Blood Pressure 113 mm[Hg] [...] O2 Saturation 100 % 2023 07:39 Initial 09409 -5 LOINC Pulse 79.0 /min 03/29/2024 07:39 Initial 8867- 4 LOINC Respiration 12 /min 03/29/20 07:39 Initial 9279- 1 INC Temperature 36.3 Emma 97.3 F 03/29/20 07:39 Initial 8310- 5 LOINC Weight 73.94 kg 163.00 lbs 03/29/2024 07:41 Most Recent 77661 -7 LOINC Weight 73.94 kg 163.00 lbs 03/21/2024 14:45 Initial 87243 -7 [facility] Medications Medication Start Date End Date Route Frequency Dose Code Code System Medication Instructions Home Meds Albuterol Sulfate 0.09MG/1Actuation Inhalation Suspension 03/29/2024 Unknown INHALATION ONCE A DAY 1 unit(s) 0088653 RxNorm 1 EACH INHALATION ONCE A DAY Colace 100MG Oral Capsule, Liquid Filled 03/29/2024 Unknown ORAL ONCE A DAY 100 MILLIGRA MS 6813667 RxNorm TAKE 100 MILLIGRAMS ORAL ONCE A DAY Cyclobenzaprine 10MG Oral Tablet 03/29/2024 Unknown ORAL TWICE A DAY 10 MILLIGRA MS 412480 RxNorm TAKE 10 MILLIGRAMS ORAL TWICE A DAY Escitalopram 5MG Oral Tablet 03/29/2024 Unknown ORAL ONCE A DAY 5 MILLIGRA MS 615027 RxNorm TAKE 5 MILLIGRAMS ORAL ONCE A DAY Estradiol 0.5MG Oral Tablet 03/29/2024 Unknown ORAL ONCE A DAY 0.5 MILLIGRA MS 893080 RxNorm TAKE 0.5 MILLIGRAMS ORAL ONCE A DAY Fibercon 625MG Oral Tablet 03/29/2024 Unknown ORAL ONCE A DAY 625 MILLIGRA MS RxNorm TAKE 625 MILLIGRAMS ORAL ONCE A DAY Latanoprost 0.005% Ophthalmic Solution 03/29/2024 Unknown OPHTHALMIC AT BEDTI OK 1 unit(s) 426102 RxNorm 1 EACH OPHTHALMIC AT BEDTIME Linzess 72MCG Oral Capsule 03/29/2024 Unknown ORAL ONCE A DAY 72 MCG 5394090 RxNorm TAKE 72 MCG ORAL ONCE A DAY Meloxicam 15MG Oral Tablet 03/29/2024 Unknown ORAL NEEDE D 15 MILLIGRA MS 406945 RxNorm TAKE 15 MILLIGRAMS ORAL NEEDED Montelukast Sodium 10MG Oral Tablet 03/29/2024 Unknown ORAL ONCE A DAY 10 MILLIGRA MS 849366 RxNorm TAKE 10 MILLIGRAMS ORAL ONCE A DAY Nortriptyline 10MG Oral Capsule 03/29/2024 Unknown ORAL AT BEDTI ME 19791113 RxNorm TAKE 1-2 CAPSULE ORAL AT BEDTIME Ondansetron 4MG Oral Tablet 03/29/2024 Unknown ORAL NEEDE D 4 TIMES A DAY 4 MILLIGRA MS 393650 RxNorm TAKE 4 MILLIGRAMS ORAL NEEDED 4 TIMES A DAY Pantoprazole Sodium 40 MG Oral Tablet, Delayed Release 03/29/2024 Unknown ORAL ONCE A DAY 40 MG 140944 RxNorm TAKE 40 MG ORAL ONCE A DAY Reglan 10MG Oral Tablet 03/29/2024 Unknown ORAL NEEDE D 4 TIMES A DAY 10 MILLIGRA MS 957244 RxNorm TAKE 10 MILLIGRAMS ORAL NEEDED 4 TIMES A DAY Restasis 0.05% Ophthalmic Emulsion 03/29/2024 Unknown OPHTHALMIC TWICE A DAY 1 unit(s) 1157364 RxNorm 1 EACH OPHTHALMIC TWICE A DAY Rizatriptan Benzoate 5MG Oral Tablet, Disintegrating 03/29/2024 Unknown ORAL DIREC JOAN 5 MILLIGRA MS 029122 RxNorm TAKE 5 MILLIGRAMS ORAL DIRECTED Sucralfate 1GM Oral Tablet 03/29/2024 Unknown ORAL 4 TIMES DAILY 1 GM 132629 RxNorm TAKE 1 GM ORAL 4 TIMES DAILY Unisom 25 MG Oral Tablet 03/29/2024 Unknown ORAL AT BEDTI ME 25 MG 2992503 RxNorm TAKE 25 MG ORAL AT BEDTIME valACYclovir HCl 500MG Oral Tablet 03/29/2024 Unknown ORAL ONCE A DAY 500 MILLIGRA MS 474705 RxNorm TAKE 500 MILLIGRAMS ORAL ONCE A DAY Hospital Discharge Instructions Should you have any questions prior to discharge, please contact a member of your healthcare team. If you have left the hospital and have any questions, please contact your primary care physician. Reason For Referral No Data Found Procedures Procedure Name Date Status Code Code Syste m Breast augmentation completed 88959749 SNOME DCT Anesthesia for upper gastroi ntestinal endoscopic procedures, endoscope int 03/29/2024 completed 65134 CPT Hysterectomy completed 258618275 SNOMEDCT Cholecystectomy completed 76774403 SNOMEDCT Esophagogastroduodenoscopy, flexible, transoral; with biopsy, single or mu 03/29/2024 completed 21878 CPT Sphincterotomy by ERCP completed 713235004 SN OMEDCT EGD completed 967102684 SNOMEDCT Colon completed 08538628 SNOMEDCT Allergies and Adverse Reactions Allergy Substance Reaction Severity Start Date Concern Status Code Code System CODEINE Confusion (SNOMED-CT: 573586061) Active 2670 RxNorm LATEX Active 8069725 RxNorm CITRUS Active 27977325 SNOMED-CT AMITIZA Active 579421 RxNorm MOUNJARO Rash (SNOMED-CT: 953717453), RASH (SNOMED-CT: null), RASH (SNOMED-CT: null) Active 5257870 RxNorm SSRI'S Active 2288844 RxNorm ADHESIVES Rash (SNOMED-CT: 436488310), RASH (SNOMED-CT: null), RASH (SNOMED-CT: null) Active Plan of Treatment MRI ABDOMEN WO (68273) 04/27/2024 EGD 03/29/2024 Encounters Encounter Diagnosis Start Date Code Code Sys tem Unspecified chronic gastritis without bleeding 024 SNOMED-CT Personal Care Team Section Performer Name Performer Role Active Date Inactive Da savanna
--- NOTE | 2024-11-30 19:27 | ED_ITS ---
HPI - Chest Pain General Chief Complaint: Abdominal Pain Stated Complaint: Chest pain Time Seen by Provider: 11/30/24 19:27 Source: patient Mode of arrival: ambulatory Limitations: no limitations History of Present Illness HPI narrative: 64-year-old female with a history of IBS, pancreatitis, GERD, glaucoma presents to the ED with -- abdominal started @ a.m. and persisted through the day. She has history of pancreatitis her gallbladder removed. She has intermittent abdominal. She has had nausea without any vomiting. she is had BTL and cholecystectomy in the past. She has had a history of recurrent pancreatitis. -- sternal chest which started at 8:00 a.m. She describes it as chest pressure and rates at 3/10. No radiation of the pain no shortness of breath. -- patient states that she had low-grade fever. MD complaint: chest pain Onset (ago): hour(s) ( 10 hours) Timing of current episode: constant Prior episodes: No Onset: during rest Pain location: substernal Pain radiation: none Severity: mild Pain scale (0-10): 3 Quality: tightness Relieving factors: nothing Exacerbating factors: nothing Treatment prior to arrival: none Risk Factors Coronary artery disease risk factors: smoking history and hyperlipidemia Thoracic aortic dissection risk factors: none Related Data On Oral Contraceptives: Yes Home Medications ?Medication ?Instructions ?Recorded ?Confirmed ?Last Taken ?Type albuterol sulfate 90 mcg/actuation 1 puff inhalation PRN PRN Wheezing 04/24/23 11/14/24 Unknown History aerosol inhaler rizatriptan 5 mg tablet 5 mg PO ONCE 09/09/23 11/14/24 Unknown History docusate sodium 100 mg capsule 100 mg PO DAILY 07/18/24 11/14/24 Unknown History (Colace) cyclosporine 0.05 % eye drops in a drp EACH EYE 11/14/24 11/14/24 Unknown History dropperette (Restasis) tolterodine 4 mg capsule,extended mg PO 11/14/24 11/14/24 Unknown History release 24 hr Allergies Allergy/AdvReac Type Severity Reaction Status Date / Time codeine Allergy Confusion Verified 11/30/24 19:31 citric acid AdvReac Severe sores Verified 11/30/24 19:31 latex AdvReac Unknown Hives Verified 11/30/24 19:31 TAPE AdvReac Rash Uncoded 11/30/24 19:31 Review of Systems 2 Review of Systems: All systems reviewed & are unremarkable except as noted in HPI and below Constitutional: Constitutional: Reports as per HPI and Reports no additional constitutional complaints Eyes: Eyes: Reports as per HPI and Reports no additional eye complaints ENT: Reports system reviewed and no additional complaints, except as documented and Reports as per HPI Cardiovascular: Cardiovascular: Reports as per HPI, Reports no additional cardiovascular complaints and Reports chest pain Respiratory: Respiratory: Reports as per HPI and Reports no additional respiratory complaints Gastrointestinal: Gastrointestinal: Reports as per HPI, Reports no additional gastrointestinal complaints and Reports abdominal pain Comments: Periumbilical abdominal Genitourinary: Comments: she is menopausal push which she takes estrogen and progesterone. Musculoskeletal: Musculoskeletal: Reports no additional musculoskeletal complaints and Reports as per HPI Integumentary/Breasts: Skin/Breast: Reports system reviewed and no additional complaints, except as docu and Reports as per HPI Neurologic: Reports system reviewed and no additional complaints, except as documented and Reports as per HPI Psychiatric: Psychiatric: Reports no additional psychiatric complaints and Reports as per HPI Comments: Irritable bowel syndrome Endocrine: Endocrine: Reports no additional endocrine complaints and Reports as per HPI Hematologic/Lymphatic: Hematologic/Lymphatic: Reports no additional hematologic/lymphatic complaints and Reports as per HPI Allergic/Immunologic: Allergic/Immunologic: Reports no additional allergic/immunologic complaints and Reports as per HPI [facility] Past Medical History Medical History Glaucoma GERD (gastroesophageal reflux disease) (11/18/16) Generalized anxiety disorder (12/25/16) Pancreatitis IBS (irritable bowel syndrome) Surgical History Surgical History History of augmentation of both breasts History of tubal ligation History of bladder suspension procedure History of hysterectomy History of ERCP History of cholecystectomy Family History Family History Mother Carcinoma of colon Hypertension Cerebrovascular accident Heart problem Grandparent Carcinoma of colon Father Hypertension Cancer Heart problem Sibling Heart problem Hypertension Cancer Sibling Cancer Heart problem Hypertension Social History Social History Smoking status: Former smoker Tobacco type: cigarettes Alcohol intake: current Alcohol use details: occasional Substance use: never Substance use type: does not use Do You Feel Safe in your Home?: Yes Lack of Transportation: No Lack of Food: Never True Current Housing: I Have Housing Concerned About Future Housing: No Difficulty Paying Gas/Electric Bills: No Difficulty Paying for Meds: No Currently Unemployed: No Education: High School Diploma/GED Difficulty w/ Childcare or Family Care: No Living arrangements: with family Occupation/Education: retired 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 [employer] Gender identity (if verbalized by the patient): Female Sexual Orientation (if Verbalized by the Patient): Straight or Heterosexual Spiritual care concerns: No Exam 2 Const: General: no acute distress Orientation/consciousness: patient oriented x3 Limitations: no limitations HENMT: Head: normal to inspection Ears: external ears normal F jaye/Nose/Sinus: Normal external nose present Face and sinus: normal facial exam Mouth: Yes Normal oral and palatal mucosa present Throat: posterior oropharynx normal Eyes: Conjunctivae: conjunctivae normal Pupils: Equal, round and reactive pupils present EOM: EOMs intact bilaterally Direct Ophthalmoscopy: no photophobia Neck: Neck: normal visual inspection, no lymphadenopathy and no meningeal signs Chest: Chest palpation & inspection: normal inspection of the chest Resp: Effort & Inspection: normal respiratory effort Auscultation: clear to auscultation bilaterally Cardio: Rate: regular rate Rhythm: regular rhythm GI: GI Palp: Yes Soft to palpation Auscultation: normal bowel sounds O ther: bilateral CVA angle tenderness. Rest of the abdomen and nontender. : General: Yes no CVA tenderness Back/Spine/Pelvis: Back: no CVA tenderness Skin: General skin exam: normal color Rashes: no rashes Neuro: General: patient oriented x3, moves all extremities, no meningeal signs, no focal motor deficits and CN's II-XI intact bilaterally Cranial nerves: Yes Nystagmus not present Speech: normal speech Extrem: General: normal to inspection and no clubbing, cyanosis or edema Psych: Affect: normal affect Attitude: cooperative Course Course Emergency Course: chest pain since 8:00 a.m..-- EKG did not show any ST elevation. Patient had a normal troponin/ normal D-dimer. Chest x-ray did not show any findings. Abdominal pain-- abdominal examination does not show any evidence of acute abdomen. patient has a history of IBS and intermittent abdominal pain. Patient is noted to have a normal white cell count, normal lipase, normal LFT and an unremarkable UA, patient has an elevated lactate of 2.6 . give a bolus of IV fluids. Will repeat abdominal examination after morphine and Zofran. the patient received IV morphine Zofran with significant improvement in abdominal pain. Repeat abdominal examination did not show any evidence of acute abdomen. Discussed with the patient and explained to her to return to the ED if she has ongoing abdominal pain CKD Vital Signs Vital signs: Vital Signs Temperature 36.7 C 11/30/24 19:19 Pulse Rate 109 H 11/30/24 19:19 Respiratory Rate 18 11/30/24 19:19 Blood Pressure 141/91 H 11/30/24 19:19 Pulse Oximetry 95 11/30/24 19:19 Oxygen Delivery Room Air 11/30/24 19:19 Temperature 36.7 C 11/30/24 19:19 Pulse Rate 106 H 11/30/24 21:01 Respiratory Rate 14 11/30/24 21:01 Blood Pressure 133/74 11/30/24 21:00 Pulse Oximetry 92 11/30/24 21:01 Oxygen Delivery Room Air 11/30/24 19:19 MDM - Chest Pain MDM Narrative Medical decision making narrative: Chest pain abdominal pain Differential Diagnosis Differential diagnosis: Likely stable angina, atypical chest pain and other ( IBS) Medical Records Data Attestation: I reviewed the patient's medical records. Lab Data Attestation: I reviewed the patient's lab results. 11/30/24 20:04 11/30/24 20:04 Labs: Lab Results 11/30/24 11/30/24 11/30/24 Range/Units 18:33 20:04 22:13 WBC 8.2 (4.8-10.8) K/mm3 RBC 4.86 (4.20-5.40) M/mm3 Hgb 14.6 (12.0-15.0) g/dL Hct 44.5 (35.0-49.0) % MCV 91.6 (78.0-102.0) fL MCH 30.0 (27.0-31.0) pg MCHC 32.8 (32-36) g/dL RDW 11.9 (11.6-14.4) % Plt Count 203 (150-420) K/mm3 MPV 11.1 (9.2-11.8) fl Immature Gran % (Auto) 0.2 H (0.0-0.0) % Neut % (Auto) 90.4 H (50.0-70.0) % Lymph % (Auto) 3.4 L (18.0-42.0) % Thayer % (Auto) 5.8 (2.0-11.0) % Eos % (Auto) 0.0 L (1.0-6.0) % Baso % (Auto) 0.2 (0.0-1.0) % Lymph # (Auto) 0.28 L (1.10-4.50) K/mm3 Thayer # (Auto) 0.47 (0.10-0.90) K/mm3 Eos # (Auto) 0.00 L (0.02-0.50) K/mm3 Baso # (Auto) 0.02 (0.00-0.10) K/mm3 Abs Immat Gran (auto) 0.02 H (0.00-0.00) K/mm3 Absolute Neuts (auto) 7.36 H (1.70-7.20) K/mm3 Absolute Nucleated RBC 0.00 (0.00-0.00) K/mm3 Nucleated RBC % 0.0 (0-0.0) % PT 10.2 (9.50-12.1) Seconds INR 0.9 D-Dimer 0.26 (0.19-0.50) mg/L Sodium 139 (136-145) mmol/L Potassium 3.8 (3.5-5.1) mmol/L Chloride 104 (98-108) mmol/L Carbon Dioxide 25 (21-32) mmol/L Anion Gap 10 (4-12) mmol/L BUN 17 (7-18) mg/dL Creatinine 1.05 H (0.55-1.02) mg/dL Estim Creat Clear Calc 50 ml/min Estimated GFR 53 L (59 - ) Glucose 120 H (70-99) mg/dL Calculated Osmolality 290 (285-295) mOsm/kg Lactic Acid 2.6 H 2.2 H (0.4-2.0) mmol/L Calcium 8.6 (8.5-10.1) mg/dL Magnesium 1.8 (1.8-2.4) mg/dL Total Bilirubin 0.8 (0.00-1.00) mg/dL AST 24 (15-37) U/L ALT 30 (14-59) U/L Alkaline Phosphatase 89 (46-116) U/L Troponin I < 4.0 (0.00-60.4) ng/L NT-Pro-B Natriuret Pep 84 (0-125) pg/mL Total Protein 7.5 (6.4-8.2) g/dL Albumin 3.6 (3.4-5.0) g/dL Lipase 29 (16-77) U/L TSH 1.62 (0.36-3.74) uIU/mL Urine Color Yellow (Yellow) Urine Appearance Clear (Clear) Urine pH 5.5 (5.0-8.0) Ur Specific [place] 1.025 H (1.010-1.020) Urine Protein Negative (Negative) Urine Glucose (UA) Negative (Negative) Urine Ketones 1+ H (Negative) Ur Blood (Man) Negative (Negative) Urine Nitrate Negative (Negative) Urine Bilirubin Negative (Negative) Urine Urobilinogen 0.2 (0.2-1.0) mg/dL Leukocyte Esterase Rfl Negative (Negative) ORION/UL ECG Data EKG #1: ECG completion date: 11/30/24 ECG completion time: 19:25 Interpretation: sinus tachycardia with heart rate of 105. Left axis deviation no ST elevation. Discharge Plan Discharge Clinical Impression: Abdominal pain Qualifiers: Abdominal location: periumbilical Qualified Code(s): R10.33 - Periumbilical pain Chest pain Qualifiers: Chest pain type: unspecified Qualified Code(s): R07.9 - Chest pain, unspecified Patient Disposition: Home Condition: Stable Instructions: Antibiotic Form, Chest Pain (ED), Abdominal Pain (ED) Additional Instructions: the patient is due to follow-up with a primary care physician and get a cardiac stress test. Patient Language: Spanish Prescriptions: No Action albuterol sulfate 90 mcg/actuation HFA aerosol inhaler 1 puff INHALATION PRN PRN (Reason: Wheezing) rizatriptan 5 mg tablet 5 mg PO ONCE Rx Instructions: may repeat once after at least 2 hours rosuvastatin 10 mg tablet 10 mg PO DAILY Qty: 90 1RF cyclosporine [Restasis] 0.05 % dropperette EACH EYE tolterodine 4 mg capsule,extended release 24hr PO progesterone micronized 100 mg capsule 100 mg PO QHS Qty: 90 3RF estradiol 1 mg tablet 1 mg PO DAILY Qty: 90 0RF estradiol 0.01 % (0.1 mg/gram) cream 1 g vaginal 3XW Qty: 42.5 6RF docusate sodium [Colace] 100 mg capsule 100 mg PO DAILY valacyclovir 500 mg tablet 500 mg PO DAILY Qty: 90 1RF montelukast [Singulair] 10 mg tablet 10 mg PO DAILY Qty: 90 1RF escitalopram oxalate [Lexapro] 5 mg tablet 5 mg PO DAILY Qty: 90 1RF nortriptyline [Pamelor] 10 mg capsule 10 mg PO DAILY Qty: 90 1RF pantoprazole 40 mg tablet,delayed release (DR/EC) 40 mg PO DAILY Qty: 90 1RF Follow-up/Referrals: Vance Isbell MD [Primary Care Provider] - Time of Disposition: 22:45
--- OUTSIDE RECORDS SUMMARY | 2024-11-30 19:41 | XMS_ITS ---
Author Organization Unknown Address [address] [place] [phone] Phone Care Team Providers Care Loop Cutter Name Role Phone IRENE Robb Attending Unavailable BRIAN MIRANDA BLUE PRINT CONTROL CLERK Unavailable CHARLEEN MCMILLAN Primary Unavailable Immunization Immunization [...] Code Syst em Smoking History Former smoker 5034657 SNOMED CT Sex Female Vital Signs Vital Sign Value Unit Guion Value Guion Unit Date/Time Recent/Initial? Code Code System Body Mass Index 28.87 kg/m2 03/29/2024 07:41 Most Recent 14314 -5 LOINC Body Mass Index 28.87 kg/m2 03/21/2024 14:45 Initial 77975 -5 LOINC Systolic Blood Pressure 113 mm[Hg] [...] O2 Saturation 100 % 2023 07:39 Initial 37062 -5 LOINC Pulse 79.0 /min 03/29/2024 07:39 Initial 8867- 4 LOINC Respiration 12 /min 03/29/20 07:39 Initial 9279- 1 INC Temperature 36.3 Emma 97.3 F 03/29/20 07:39 Initial 8310- 5 LOINC Weight 73.94 kg 163.00 lbs 03/29/2024 07:41 Most Recent 22237 -7 LOINC Weight 73.94 kg 163.00 lbs 03/21/2024 14:45 Initial 55211 -7 [facility] Medications Medication Start Date End Date Route Frequency Dose Code Code System Medication Instructions Home Meds Albuterol Sulfate 0.09MG/1Actuation Inhalation Suspension 03/29/2024 Unknown INHALATION ONCE A DAY 1 unit(s) 4943042 RxNorm 1 EACH INHALATION ONCE A DAY Colace 100MG Oral Capsule, Liquid Filled 03/29/2024 Unknown ORAL ONCE A DAY 100 MILLIGRA MS 1146476 RxNorm TAKE 100 MILLIGRAMS ORAL ONCE A DAY Cyclobenzaprine 10MG Oral Tablet 03/29/2024 Unknown ORAL TWICE A DAY 10 MILLIGRA MS 191590 RxNorm TAKE 10 MILLIGRAMS ORAL TWICE A DAY Escitalopram 5MG Oral Tablet 03/29/2024 Unknown ORAL ONCE A DAY 5 MILLIGRA MS 418428 RxNorm TAKE 5 MILLIGRAMS ORAL ONCE A DAY Estradiol 0.5MG Oral Tablet 03/29/2024 Unknown ORAL ONCE A DAY 0.5 MILLIGRA MS 521574 RxNorm TAKE 0.5 MILLIGRAMS ORAL ONCE A DAY Fibercon 625MG Oral Tablet 03/29/2024 Unknown ORAL ONCE A DAY 625 MILLIGRA MS RxNorm TAKE 625 MILLIGRAMS ORAL ONCE A DAY Latanoprost 0.005% Ophthalmic Solution 03/29/2024 Unknown OPHTHALMIC AT [facility] AR 1 unit(s) 483537 RxNorm 1 EACH OPHTHALMIC AT BEDTIME Linzess 72MCG Oral Capsule 03/29/2024 Unknown ORAL ONCE A DAY 72 MCG 4724880 RxNorm TAKE 72 MCG ORAL ONCE A DAY Meloxicam 15MG Oral Tablet 03/29/2024 Unknown ORAL NEEDE D 15 MILLIGRA MS 988048 RxNorm TAKE 15 MILLIGRAMS ORAL NEEDED Montelukast Sodium 10MG Oral Tablet 03/29/2024 Unknown ORAL ONCE A DAY 10 MILLIGRA MS 948954 RxNorm TAKE 10 MILLIGRAMS ORAL ONCE A DAY Nortriptyline 10MG Oral Capsule 03/29/2024 Unknown ORAL AT [facility]ED[facility] ME 19791113 RxNorm TAKE 1-2 CAPSULE ORAL AT BEDTIME Ondansetron 4MG Oral Tablet 03/29/2024 Unknown ORAL NEEDE D 4 TIMES A DAY 4 MILLIGRA MS 830164 RxNorm TAKE 4 MILLIGRAMS ORAL NEEDED 4 TIMES A DAY Pantoprazole Sodium 40 MG Oral Tablet, Delayed Release 03/29/2024 Unknown ORAL ONCE A DAY 40 MG 012477 RxNorm TAKE 40 MG ORAL ONCE A DAY Reglan 10MG Oral Tablet 03/29/2024 Unknown ORAL NEEDE D 4 TIMES A DAY 10 MILLIGRA MS 625436 RxNorm TAKE 10 MILLIGRAMS ORAL NEEDED 4 TIMES A DAY Restasis 0.05% Ophthalmic Emulsion 03/29/2024 Unknown OPHTHALMIC TWICE A DAY 1 unit(s) 7589985 RxNorm 1 EACH OPHTHALMIC TWICE A DAY Rizatriptan Benzoate 5MG Oral Tablet, Disintegrating 03/29/2024 Unknown ORAL DIREC JOAN 5 MILLIGRA MS 160680 RxNorm TAKE 5 MILLIGRAMS ORAL DIRECTED Sucralfate 1GM Oral Tablet 03/29/2024 Unknown ORAL 4 TIMES DAILY 1 GM 303854 RxNorm TAKE 1 GM ORAL 4 TIMES DAILY Unisom 25 MG Oral Tablet 03/29/2024 Unknown ORAL AT BEDTI ME 25 MG 4859299 RxNorm TAKE 25 MG ORAL AT BEDTIME valACYclovir HCl 500MG Oral Tablet 03/29/2024 Unknown ORAL ONCE A DAY 500 MILLIGRA MS 550175 RxNorm TAKE 500 MILLIGRAMS ORAL ONCE A DAY Hospital Discharge Instructions Should you have any questions prior to discharge, please contact a member of your healthcare team. If you have left the hospital and have any questions, please contact your primary care physician. Reason For Referral No Data Found Procedures Procedure Name Date Status Code Code Syste m Breast augmentation completed 06288104 SNOME DCT Anesthesia for upper gastroi ntestinal endoscopic procedures, endoscope int 03/29/2024 completed 34315 CPT Hysterectomy completed 650611628 SNOMEDCT Cholecystectomy completed 59893745 SNOMEDCT Esophagogastroduodenoscopy, flexible, transoral; with biopsy, single or mu 03/29/2024 completed 05818 CPT Sphincterotomy by ERCP completed 766986453 SN OMEDCT EGD completed 920520188 SNOMEDCT Colon completed 22982927 SNOMEDCT Allergies and Adverse Reactions Allergy Substance Reaction Severity Start Date Concern Status Code Code System CODEINE Confusion (SNOMED-CT: 101239322) Active 2670 RxNorm LATEX Active 1544748 RxNorm CITRUS Active 75669520 SNOMED-CT AMITIZA Active 627242 RxNorm MOUNJARO Rash (SNOMED-CT: 211536902), RASH (SNOMED-CT: null), RASH (SNOMED-CT: null) Active 4970281 RxNorm SSRI'S Active 8919391 RxNorm ADHESIVES Rash (SNOMED-CT: 413567537), RASH (SNOMED-CT: null), RASH (SNOMED-CT: null) Active Plan of Treatment MRI ABDOMEN WO (79771) 04/27/2024 EGD 03/29/2024 Encounters Encounter Diagnosis Start Date Code Code Sys tem Unspecified chronic gastritis without bleeding 024 SNOMED-CT Personal Care Team Section Performer Name Performer Role Active Date Inactive Da savanna
--- OUTSIDE RECORDS SUMMARY | 2024-11-30 19:41 | XMS_ITS ---
Author Organization Unknown Address [address] [place] [phone] Phone Care Team Providers Care Supervisor Drawing Name Role Phone KALEN VELANA Grisel Attending [...] Aure Rutherford M.D. FT: FT Report ID: [id number] Reading Location: [place] [address] Social History Type Status Start Date End Date Code Code Syst em Smoking History Former smoker 9312014 SNOMED CT Sex Female Medications Medication Start Date End Date Route Frequency Dose Code Code System Medication Instructions Home Meds Albuterol Sulfate 0.09MG/1Actuation Inhalation Suspension 03/29/2024 Unknown INHALATION ONCE A DAY 1 unit(s) 2242468 RxNorm 1 EACH INHALATION ONCE A DAY Colace 100MG Oral Capsule, Liquid Filled 03/29/2024 Unknown ORAL ONCE A DAY 100 MILLIGRA MS 8409354 RxNorm TAKE 100 MILLIGRAMS ORAL ONCE A DAY Cyclobenzaprine 10MG Oral Tablet 03/29/2024 Unknown ORAL TWICE A DAY 10 MILLIGRA MS 905046 RxNorm TAKE 10 MILLIGRAMS ORAL TWICE A DAY Escitalopram 5MG Oral Tablet 03/29/2024 Unknown ORAL ONCE A DAY 5 MILLIGRA MS 275629 RxNorm TAKE 5 MILLIGRAMS ORAL ONCE A DAY Estradiol 0.5MG Oral Tablet 03/29/2024 Unknown ORAL ONCE A DAY 0.5 MILLIGRA MS 852349 RxNorm TAKE 0.5 MILLIGRAMS ORAL ONCE A DAY Fibercon 625MG Oral Tablet 03/29/2024 Unknown ORAL ONCE A DAY 625 MILLIGRA MS RxNorm TAKE 625 MILLIGRAMS ORAL ONCE A DAY Latanoprost 0.005% Ophthalmic Solution 03/29/2024 Unknown [facility] 1 unit(s) 726563 RxNorm 1 EACH OPHTHALMIC AT BEDTIME Linzess 72MCG Oral Capsule 03/29/2024 Unknown ORAL ONCE A DAY 72 MCG 3056800 RxNorm TAKE 72 MCG ORAL ONCE A DAY Meloxicam 15MG Oral Tablet 03/29/2024 Unknown ORAL NEEDE D 15 MILLIGRA MS 920215 RxNorm TAKE 15 MILLIGRAMS ORAL NEEDED Montelukast Sodium 10MG Oral Tablet 03/29/2024 Unknown ORAL ONCE A DAY 10 MILLIGRA MS 436795 RxNorm TAKE 10 MILLIGRAMS ORAL ONCE A DAY Nortriptyline 10MG Oral Capsule 03/29/2024 Unknown ORAL AT [facility] 471039 RxNorm TAKE 1-2 CAPSULE ORAL AT BEDTIME Ondansetron 4MG Oral Tablet 03/29/2024 Unknown ORAL NEEDE D 4 TIMES A DAY 4 MILLIGRA MS 760145 RxNorm TAKE 4 MILLIGRAMS ORAL NEEDED 4 TIMES A DAY Pantoprazole Sodium 40 MG Oral Tablet, Delayed Release 03/29/2024 Unknown ORAL ONCE A DAY 40 MG 192256 RxNorm TAKE 40 MG ORAL ONCE A DAY Reglan 10MG Oral Tablet 03/29/2024 Unknown ORAL NEEDE D 4 TIMES A DAY 10 MILLIGRA MS 114498 RxNorm TAKE 10 MILLIGRAMS ORAL NEEDED 4 TIMES A DAY Restasis 0.05% Ophthalmic Emulsion 03/29/2024 Unknown OPHTHALMIC TWICE A DAY 1 unit(s) 4924169 RxNorm 1 EACH OPHTHALMIC TWICE A DAY Rizatriptan Benzoate 5MG Oral Tablet, Disintegrating 03/29/2024 Unknown ORAL DIREC JOAN 5 MILLIGRA MS 647004 RxNorm TAKE 5 MILLIGRAMS ORAL DIRECTED Sucralfate 1GM Oral Tablet 03/29/2024 Unknown ORAL 4 TIMES DAILY 1 GM 943421 RxNorm TAKE 1 GM ORAL 4 TIMES DAILY Unisom 25 MG Oral Tablet 03/29/2024 Unknown [facility]AL [facility] 25 MG 5228561 RxNorm TAKE 25 MG ORAL AT BEDTIME valACYclovir HCl 500MG Oral Tablet 03/29/2024 Unknown ORAL ONCE A DAY 500 MILLIGRA MS 470465 RxNorm TAKE 500 MILLIGRAMS ORAL ONCE A [...] Status Code Code System CODEINE Confusion (SNOMED-CT: 528215220) Active 2670 RxNorm LATEX Active 8200451 RxNorm CITRUS Active 42049690 SNOMED-CT AMITIZA Active 684131 RxNorm MOUNJARO Rash (SNOMED-CT: 970120155), RASH (SNOMED-CT: null), RASH (SNOMED-CT: null) Active 3015683 RxNorm SSRI'S Active 7273830 RxNorm ADHESIVES Rash (SNOMED-CT: 375232117), RASH (SNOMED-CT: null), RASH (SNOMED-CT: null) Active Plan of Treatment MRI ABDOMEN WO (02416) 04/27/2024 EGD 03/29/2024 Encounters Encounter Diagnosis Start Date Code Code Sys tem Other specified diseases of liver 04/27/2024 SNOMED-CT Personal Care Team Section Performer Name Performer Role Active Date Inactive Da te Imaging Narrative Notes
--- NOTE | 2024-11-30 19:44 | ECG_ITS ---
Test Date: 2024-11-30 19:25:40 Measurements Intervals [place] Rate: 105 P: 36 HI: 142 QRS: -24 QRSD: 106 T: 30 QT: 350 QTc: 464 Interpretive Statements SINUS TACHYCARDIA INCOMPLETE RIGHT BUNDLE BRANCH BLOCK LOW QRS VOLTAGE IN PRECORDIAL LEADS PATTERN CONSISTENT WITH PULMONARY DISEASE CONSIDER INFERIOR INFARCT, AGE INDETERMINATE BASELINE ARTIFACT- I, III, AVR, AVL, AVF ABNORMAL ECG No previous ECG available for comparison Electronically Signed On 11-30-2024 20:27:28 CDT by Akbar Almonte D.O.
--- NOTE | 2024-11-30 20:01 | PC.NURSE ---
lab at the bedside
[2024-11-30] MEDS: ASPIRIN 81 MG CHEWABLE TABLET 324 MG PO (20:07)
[2024-11-30 20:08] LABS: Basophils Absolute Auto 0.02 K/mm3 (0.00-0.10); Basophils Percent Auto 0.2 % (0.0-1.0); Hematocrit 44.5 % (35.0-49.0); Hemoglobin 14.6 g/dL (12.0-15.0); Immature Granulocyte Absolute 0.02 K/mm3 (0.00-0.00); Immature Granulocyte Percent A 0.2 % (0.0-0.0); Lymphocytes Absolute Auto 0.28 K/mm3 (1.10-4.50); Lymphocytes Percent Auto 3.4 % (18.0-42.0); Mean Corpuscular HGB Conc 32.8 g/dL (32-36); Mean Corpuscular Volume 91.6 fL (78.0-102.0); Mean Platelet Volume 11.1 fl (9.2-11.8); Monocytes Absolute Auto 0.47 K/mm3 (0.10-0.90); Monocytes Percent Auto 5.8 % (2.0-11.0); Neutrophils Absolute Auto 7.36 K/mm3 (1.70-7.20); Neutrophils Percent Auto 90.4 % (50.0-70.0); Platelet Count Result 203 K/mm3 (150-420); Red Blood Count 4.86 M/mm3 (4.20-5.40); Red Cell Distribution Width 11.9 % (11.6-14.4); White Blood Count 8.2 K/mm3 (4.8-10.8)
[2024-11-30 20:20] LABS: D Dimer 0.26 mg/L (0.19-0.50); INR 0.9; Prothrombin Time 10.2 Seconds (9.50-12.1)
[2024-11-30 20:29] LABS: Lactic Acid Reflex 2.6 mmol/L (0.4-2.0)
[2024-11-30 20:31] LABS: Alanine Aminotransferase 30 U/L (14-59); Albumin Level 3.6 g/dL (3.4-5.0); Alkaline Phosphatase 89 U/L (46-116); Anion Gap 10 mmol/L (4-12); Aspartate Amino Transferase 24 U/L (15-37); Bilirubin,Total 0.8 mg/dL (0.00-1.00); Blood Urea Nitrogen 17 mg/dL (7-18); Calcium 8.6 mg/dL (8.5-10.1); Carbon Dioxide 25 mmol/L (21-32); Chloride 104 mmol/L (98-108); Estimated CRCL calculation 50 ml/min; Estimated Glomerular Filt Rate 53; Glucose 120 mg/dL (70-99); Lipase 29 U/L (16-77); Magnesium 1.8 mg/dL (1.8-2.4); NT Pro B Type Natriuretic Pept 84 pg/mL (0-125); Osmolality Calculated 290 mOsm/kg (285-295); Potassium 3.8 mmol/L (3.5-5.1); Sodium 139 mmol/L (136-145); Thyroid Stimulating Hormone 1.62 uIU/mL (0.36-3.74); Total Protein 7.5 g/dL (6.4-8.2)
[2024-11-30 20:32] LABS: Troponin I < 4.0 ng/L (0.00-60.4)
[2024-11-30 20:42] LABS: Add Urine Microscopic? NO; Appearance Urine Clear (Clear); Bilirubin Urine Negative (Negative); Blood Urine Negative (Negative); Color Urine Yellow (Yellow); Glucose Urine UA Negative (Negative); Ketones Urine 1+ (Negative); Leukocyte Esterase Ur Negative LEU/UL (Negative); Nitrate Urine Negative (Negative); Protein Urine Negative (Negative); Specific Grav Ur 1.025 (1.010-1.020); Urobilinogen Urine 0.2 mg/dL (0.2-1.0); pH Urine 5.5 (5.0-8.0)
[2024-11-30] MEDS: LACTATED RINGERS 1,000 ML 999 ML IV CONT (21:39)
[2024-11-30] MEDS: MORPHINE SULFATE (*CRX) 2 MG/ML INJ IV PUSH (21:39)
[2024-11-30] MEDS: PROCHLORPERAZINE EDISYLATE 10 MG/2 ML VIAL IV PUSH (21:41)
--- NOTE | 2024-11-30 21:46 | PC.NURSE ---
Assumed care of pt at this time from BONNIE Ruffin. Agree with assessment. Pt resting right lateral recumbent position in no apparent distress. Call light in reach. Side rails up x 2. Spouse at bedside. Pt medicated as ordered.
[2024-11-30 22:05] LABS: Reflex Lactic Acid Yes or No Add Lactic
[2024-11-30 22:34] LABS: Lactic Acid 2.2 mmol/L (0.4-2.0)
--- NOTE | 2024-11-30 22:47 | PC.NURSE ---
Pt resting comfortably. IV fluids nearing completion. Per ERP pt will be discharged upon completion pt agreeable with this plan. Pt denies the presence of pain at this time.
== END 2024-11-30 23:09 | disposition home or self-care (01) ==
PROVIDERS: Emergency Provider Internal Medicine Critical Care Medicine; PCP Family Medicine
DX: R10.33 Periumbilical pain (principal); R07.9 Chest pain, unspecified; Z90.49 Acquired absence of other specified parts of digestive tract; Z87.891 Personal history of nicotine dependence
CPT/HCPCS: 36415; 71045; 80053; 81003; 83605; 83690; 83735; 83880; 84443; 84484; 85025; 85380; 85610; 93005; 96361; 96374; 96375; 99284; A9270; J0780; J2270; J7120

== ENCOUNTER 2024-12-10 09:22 | Outpatient (CLI) | payer BC, SELFPAY ==
--- NOTE | ~2024-12-10 | MM_ITS ---
EXAMINATION: MM scrn marlene implant BI w heather HISTORY: Screening mammogram TECHNIQUE: Craniocaudal and mediolateral oblique 3-D tomosynthesis images with implant displacement a nd synthetic 2-D images were generated. Craniocaudal and mediolateral oblique views of the breasts wi thout implant displacement were obtained using full field digital mammography. CAD analysis was submi tted and interpreted. COMPARISON: Comparison to multiple prior studies sequentially, with oldest reviewed study dated 09/05. BREAST PARENCHYMAL COMPOSITION: Not dense: There are scattered areas of fibroglandular density. FINDINGS: There is no evidence of suspicious mass, calcification, or architectural distortion to sugg est malignancy in either breast. There has been no suspicious interval change. IMPRESSION: 1. No mammographic evidence of malignancy. 2. Recommend routine screening mammography in one year. BI-RADS Category 1: Negative Reviewed, dictated and finalized at location A.
--- OUTSIDE RECORDS SUMMARY | 2024-12-10 16:05 | XMS_ITS | Clinical Summary ---
Author Organization [facility] Care Team Providers Care Compressed Gases Tester Name Role Phone Unavailable Primary Care Provider [...]
--- OUTSIDE RECORDS SUMMARY | 2024-12-10 16:05 | XMS_ITS | Encounter Summary ---
Author Organization [facility] Address [address] [place] [address] Care Team Providers Care Precision Lathe Operator Name Role Phone Gildardo Garcia MD Primary Care Provider [phone] Encounter Details Date Type Department Care Team (Late st Contact Info) Description 05/28/2022 [employer] Message Enc [facility] [address], [address] [address] Noam Pearson MD [address] [place] [id number] Visit Follow Up Social History Tobacco Use [...] on filedocumented in this encounter Care Teams Precision Lathe Operator Relationship Specialty Start Date End Date Gildardo Garcia MD [address] [place] [id number] PCP - General INTERNAL MEDICINE 04/16/21 documented as of this encounter
--- OUTSIDE RECORDS SUMMARY | 2024-12-10 16:05 | XMS_ITS ---
Author Organization Unknown Address [address] [place] [phone] Phone Care Team Providers Care Application Software Engineer Name Role Phone IRENE Robb Attending Unavailable BRIAN MIRANDA AIRCRAFT ARMORER Unavailable CHARLEEN HIPOLITO Primary Unavailable Immunization Immunization Date Status Additional [...] Code Syst em Smoking History Former smoker 4835954 SNOMED CT Sex Female Vital Signs Vital Sign Value Unit Jones Value Jones Unit Date/Time Recent/Initial? Code Code System Body Mass Index 28.87 kg/m2 03/29/2024 07:41 Most Recent 06433 -5 LOINC Body Mass Index 28.87 kg/m2 03/21/2024 14:45 Initial 28403 -5 LOINC Systolic Blood Pressure 113 mm[Hg] [...] O2 Saturation 100 % 2023 07:39 Initial 48190 -5 LOINC Pulse 79.0 /min 03/29/2024 07:39 Initial 8867- 4 LOINC Respiration 12 /min 03/29/20 07:39 Initial 9279- 1 INC Temperature 36.3 Emma 97.3 F 03/29/20 07:39 Initial 8310- 5 LOINC Weight 73.94 kg 163.00 lbs 03/29/2024 07:41 Most Recent 00412 -7 LOINC Weight 73.94 kg 163.00 lbs 03/21/2024 14:45 Initial 36341 -7 [facility] Medications Medication Start Date End Date Route Frequency Dose Code Code System Medication Instructions Home Meds Albuterol Sulfate 0.09MG/1Actuation Inhalation Suspension 03/29/2024 Unknown INHALATION ONCE A DAY 1 unit(s) 0512919 RxNorm 1 EACH INHALATION ONCE A DAY Colace 100MG Oral Capsule, Liquid Filled 03/29/2024 Unknown ORAL ONCE A DAY 100 MILLIGRA MS 4913325 RxNorm TAKE 100 MILLIGRAMS ORAL ONCE A DAY Cyclobenzaprine 10MG Oral Tablet 03/29/2024 Unknown ORAL TWICE A DAY 10 MILLIGRA MS 048972 RxNorm TAKE 10 MILLIGRAMS ORAL TWICE A DAY Escitalopram 5MG Oral Tablet 03/29/2024 Unknown ORAL ONCE A DAY 5 MILLIGRA MS 132051 RxNorm TAKE 5 MILLIGRAMS ORAL ONCE A DAY Estradiol 0.5MG Oral Tablet 03/29/2024 Unknown ORAL ONCE A DAY 0.5 MILLIGRA MS 416651 RxNorm TAKE 0.5 MILLIGRAMS ORAL ONCE A DAY Fibercon 625MG Oral Tablet 03/29/2024 Unknown ORAL ONCE A DAY 625 MILLIGRA MS RxNorm TAKE 625 MILLIGRAMS ORAL ONCE A DAY Latanoprost 0.005% Ophthalmic Solution 03/29/2024 Unknown OPHTHALMIC AT [facility] [place] 1 unit(s) 247725 RxNorm 1 EACH OPHTHALMIC AT BEDTIME Linzess 72MCG Oral Capsule 03/29/2024 Unknown ORAL ONCE A DAY 72 MCG 1095187 RxNorm TAKE 72 MCG ORAL ONCE A DAY Meloxicam 15MG Oral Tablet 03/29/2024 Unknown ORAL NEEDE D 15 MILLIGRA MS 767239 RxNorm TAKE 15 MILLIGRAMS ORAL NEEDED Montelukast Sodium 10MG Oral Tablet 03/29/2024 Unknown ORAL ONCE A DAY 10 MILLIGRA MS 606747 RxNorm TAKE 10 MILLIGRAMS ORAL ONCE A DAY Nortriptyline 10MG Oral Capsule 03/29/2024 Unknown ORAL AT [facility] ME 19791113 RxNorm TAKE 1-2 CAPSULE ORAL AT BEDTIME Ondansetron 4MG Oral Tablet 03/29/2024 Unknown ORAL NEEDE D 4 TIMES A DAY 4 MILLIGRA MS 803516 RxNorm TAKE 4 MILLIGRAMS ORAL NEEDED 4 TIMES A DAY Pantoprazole Sodium 40 MG Oral Tablet, Delayed Release 03/29/2024 Unknown ORAL ONCE A DAY 40 MG 590564 RxNorm TAKE 40 MG ORAL ONCE A DAY Reglan 10MG Oral Tablet 03/29/2024 Unknown ORAL NEEDE D 4 TIMES A DAY 10 MILLIGRA MS 657928 RxNorm TAKE 10 MILLIGRAMS ORAL NEEDED 4 TIMES A DAY Restasis 0.05% Ophthalmic Emulsion 03/29/2024 Unknown OPHTHALMIC TWICE A DAY 1 unit(s) 4315993 RxNorm 1 EACH OPHTHALMIC TWICE A DAY Rizatriptan Benzoate 5MG Oral Tablet, Disintegrating 03/29/2024 Unknown ORAL DIREC JOAN 5 MILLIGRA MS 782827 RxNorm TAKE 5 MILLIGRAMS ORAL DIRECTED Sucralfate 1GM Oral Tablet 03/29/2024 Unknown ORAL 4 TIMES DAILY 1 GM 490420 RxNorm TAKE 1 GM ORAL 4 TIMES DAILY Unisom 25 MG Oral Tablet 03/29/2024 Unknown ORAL AT [place] 25 MG 4808265 RxNorm TAKE 25 MG ORAL AT BEDTIME valACYclovir HCl 500MG Oral Tablet 03/29/2024 Unknown ORAL ONCE A DAY 500 MILLIGRA MS 987769 RxNorm TAKE 500 MILLIGRAMS ORAL ONCE A DAY Hospital Discharge Instructions Should you have any questions prior to discharge, please contact a member of your healthcare team. If you have left the hospital and have any questions, please contact your primary care physician. Reason For Referral No Data Found Procedures Procedure Name Date Status Code Code Syste m Breast augmentation completed 79765950 SNOME DCT Anesthesia for upper gastroi ntestinal endoscopic procedures, endoscope int 03/29/2024 completed 18901 CPT Hysterectomy completed 139234183 SNOMEDCT Cholecystectomy completed 70386568 SNOMEDCT Esophagogastroduodenoscopy, flexible, transoral; with biopsy, single or mu 03/29/2024 completed 02127 CPT Sphincterotomy by ERCP completed 649099271 SN OMEDCT EGD completed 092044434 SNOMEDCT Colon completed 60483856 SNOMEDCT Allergies and Adverse Reactions Allergy Substance Reaction Severity Start Date Concern Status Code Code System CODEINE Confusion (SNOMED-CT: 026042244) Active 2670 RxNorm LATEX Active 7839882 RxNorm CITRUS Active 97884418 SNOMED-CT AMITIZA Active 079548 RxNorm MOUNJARO Rash (SNOMED-CT: 545729150), RASH (SNOMED-CT: null), RASH (SNOMED-CT: null) Active 7163722 RxNorm SSRI'S Active 3845385 RxNorm ADHESIVES Rash (SNOMED-CT: 815552535), RASH (SNOMED-CT: null), RASH (SNOMED-CT: null) Active Plan of Treatment MRI ABDOMEN WO (96350) 04/27/2024 EGD 03/29/2024 Encounters Encounter Diagnosis Start Date Code Code Sys tem Unspecified chronic gastritis without bleeding 024 SNOMED-CT Personal Care Team Section Performer Name Performer Role Active Date Inactive Da savanna
--- OUTSIDE RECORDS SUMMARY | 2024-12-10 16:05 | XMS_ITS | Clinical Summary ---
Author Organization [facility] Address [address] [place] [address] Care Team Providers Care Still Operator Gin Name Role Phone Vance Isbell MD Primary Care Provider [phone] Source Comments [facility],non-owned Affiliates and Associated Physician Practices is amultiple site organization consisting of ambulatory clinics and hospital sitesin [place], [place], [place] and [place]. This disclosure is being madepursuant to the Care Everywhere program and may not contain all information available regarding this patient. Last updated 18.[facility] Allergies Active Allergy Reactions Criticality Noted Date Comments Adhesive Sensitivity Other 05/03/2019 blisters Codeine Psychiatric High made her crazy Giles Fruit Other 05/10/2023 Medications * Be aware [...] once daily 30 capsule 2 5 Active fesoterodine CR 24hr (Toviaz) 8 MG tablet Take 1 (one) tablet by mouth once daily 30 tablet 2 5 Active Active Problems Problem Noted Date Diagnosed Date Urgency of urination 07/28/2019 Urinary, incontinence, stress female Midline cystocele Encounters Date Type Department Care Team Description 10/18/2024 10:30 AM CDT Office Visit [facility] - DIRECTOR OF GLOBAL TALENT [address], [facility] [address] [place] [address] Juan Sears Che, MD OAB [...] CDT Respiratory Rate 16 06/21/2019 8:48 AM RADIO REPORTER Oxygen Saturation 95% 05/29/2022 2:08 PM CDT Inhaled Oxygen Concentration - - Weight 80.6 kg (177 lb 12.8 oz) 025 10:49 AM CDT Height 160 cm (5' 3 ) 10/18/2024 10:49 AM CDT Body Mass Index 31.5 10/18/2024 10:49 AM CDT Plan of Treatment Upcoming Encounters Date Type Department Care Team (Late st Contact Info) Description 02/03/2025 3:30 PM CDT Office Visit [facility] - DIRECTOR OF GLOBAL TALENT [address], [address] [address] Juan Sears Che, MD [address] [address] 07/19/2025 11:30 AM RADIO REPORTER Office Visit [facility] - DIRECTOR OF GLOBAL TALENT [address], [facility] [address] [place] [address] Juan Sears Che, MD [address] [facility] [address] [place] [address] Health Maintenance Due Date Last Done [...] this topic Medical Devices Implanted Type Area Gun Synchronizer Device Identifier Shelf Expiration Date Model / Serial / Lot Sys Ureth Supp Obtryx Midurethral Trnstr Implanted:Qty: 1 on 06/20/2019 by Juan Sears Che, MD [facility] [place] [facility] 04/25/2022 [id number] / / [id number] Procedures Procedure Name Priority Date/Time Associated Diagnosis Comments AK INSERT NON-INDWELLING BLADDER Routine 10/18/2024 11:01 AM [...] Recently Relevant to Health Maintenance Results * AK INSERT NON-INDWELLING BLADDER (10/18/2024 11:01 AM CDT) [...] taken. The patient tolerated the procedure well. us Juan Sears MD PROCEDURE/MINOR SURGICAL ORDERA BLES Final Result * CULTURE URINE COMPREHENSIVE (10/18/2024 10:56 AM CDT) Pathologist [facility] Comment: CULTURE, URINE, SPECIAL Micro Number: [id number] Test Status: Final Specimen Source: Urine, catheter Specimen Quality: Adequate Result: No Growth Test Performed at: [facility] [id number] COLLEEN POST MD Microbiology URINE SPECIMEN COLLECTION, CATHETERIZED / Unknown 10/18/2024 10:56 AM CDT 10/19/2024 3:15 AM CDT us Juan Sears MD LAB - MICROBIOLOGY ORDERABLES F inal Result [facility] [address] [place] [address] * URINALYSIS AUTO - POINT OF CARE (AMB) [facility] (10/18/2024) Glucose UA neg OTHER LAB Bilirubin UA POCT neg OTHER LAB Ketones UA POCT neg OTHER LAB Specific Norco UA 1.005 OTHER LAB Blood Urine POCT neg OTHER LAB pH UA 6.0 OTHER LAB Protein UA neg OTHER LAB Urobilinogen UA 0.2 OTHER LAB Nitrite UA neg OTHER LAB WBC UA neg OTHER LAB Urine URINE / Unknown 10/18/2024 Juan Sears MD LAB - POINT OF CARE ORDERABLES Final Result Performing Organization Address City/[facility]/ZIP Co de Phone Number OTHER LAB [...] COMPARISON: Serial examinations dating back to 08/15/2019 ([facility] and this facility TECHNIQUE: BILATERAL digital [...] Health Maintenance Insurance ANTHEM ANTHEM Care Teams Still Operator Gin Relationship Specialty Start Date End Date Vance Isbell MD [address] [place] [address] PCP - General Family Medicine 07/27/24
--- OUTSIDE RECORDS SUMMARY | 2024-12-10 16:05 | XMS_ITS | Encounter Summary ---
Author Organization [facility] Address [address] [place] [address] Care Team Providers Care Service Station Equipment Mechanic Name Role Phone Gildardo Garcia MD Primary Care Provider [phone] Vance Isbell MD Primary Care Provider [phone] Reason for Visit * Reason Onset Date Comments Treatment 06/23/2019 Encounter Details Date Type Department Care Team (Late st Contact Info) Description 06/23/2019 Telephone [facility] - SADDLE STITCHER [address] [address] Juan Sears Che, MD [address] [place] [address] [address] [place] [address] Treatment Social History Tobacco Use [...] bleeding and Nausea from surgery on 06/20/19 E TENDER documented in this encounter Plan of Treatment Upcoming Encounters Date Type Department Care Team (Late st Contact Info) Description 02/03/2025 3:30 PM CDT Office Visit [facility] - SADDLE STITCHER [address], [facility] [address] [place] [address] Juan Sears Che, MD [address] [facility] [address] [place] [address] 07/19/2025 11:30 AM SWAGE TENDER Office Visit [facility] - SADDLE STITCHER [address], [facility] [address] [place] [address] Juan Sears Che, MD [address] [facility] [address] [place] [address] documented as of this encounter Visit Diagnoses Not on filedocumented in this encounter Care Teams Service Station Equipment Mechanic Relationship Specialty Start Date End Date Gildardo Garcia MD [address] [place] [address] PCP - General 04/20/18 07/26/24 Vance Isbell MD [address] [place] [address] PCP - General Family Medicine 07/27/24 documented as of this encounter
--- OUTSIDE RECORDS SUMMARY | 2024-12-10 16:06 | XMS_ITS | Clinical Summary ---
Author Organization [facility] Address [address] [place] [address] Care Team Providers Care Warehouse Stocker Name Role Phone Gildardo Garcia MD Primary Care Provider [phone] Allergies Active Allergy Reactions Criticality Noted Date [...] Comments Blood Pressure 135/80 06/19/2022 1:30 PM MOBILE HEAVY EQUIPMENT MECHANIC Pulse 89 06/19/2022 1:30 PM MOBILE HEAVY EQUIPMENT MECHANIC Temperature 36.3 C (97.4 F) 06/19/2022 1:30 PM MOBILE HEAVY EQUIPMENT MECHANIC Respiratory Rate 20 06/19/2022 1:30 PM MOBILE HEAVY EQUIPMENT MECHANIC Oxygen Saturation 93% 06/19/2022 1:30 PM MOBILE HEAVY EQUIPMENT MECHANIC Inhaled Oxygen Concentration - - Weight 77.1 kg (170 lb) 09/24/2022 4:13 PM MOBILE HEAVY EQUIPMENT MECHANIC Height 160 cm (5' 3 ) 09/24/2022 4:13 PM MOBILE HEAVY EQUIPMENT MECHANIC Body Mass Index 30.11 09/24/2022 4:13 PM MOBILE HEAVY EQUIPMENT MECHANIC Plan of Treatment Health Maintenance Due Date [...] this topic Medical Devices Implanted Type Area Dip Dyer Device Identifier Shelf Expiration Date Model / Serial / Lot [place] Suture Bio-Swivelock C Ar[employer] - [id number] Implanted:Qty: 1 on 06/19/2022 by Noam Pearson MD at [facility] [place] Right: Shoulder [employer] [id number] 11/07/[address] AR-[address] / / [id number] [place] Suture Bio-Swivelock C Ar[employer]rex White/Black 4.75 X 19.1mm - [id number] Implanted:Qty: 1 on 06/19/2022 by Noam Pearson MD at [facility] [place] Right: Shoulder [employer] [id number] 11/07/2025 AR-2324BC CTT / / [id number] [place] Suture Swivelock Self Punch 24.5mm Biocomposite - [id number] Implanted:Qty: 1 on 06/19/2022 by Noam Pearson MD at [facility] [place] Right: Shoulder [employer] [id number] 02/06/2026 AR-2324BC M / / [id number] [place] Suture Swivelock Self Punch 24.5mm Biocomposite - [id number] Implanted:Qty: 1 on 06/19/2022 by Noam Pearson MD at [facility] [place] Right: Shoulder [employer] [id number] 02/06/2026 JENNIFER-2324BC M / / [id number] [place] Suture Swivelock Self Punch 24.5mm Biocomposite - [id number] Implanted:Qty: 1 on 06/19/2022 by Noam Pearson MD at [facility] [place] Right: Shoulder [employer] [id number] 02/06/2026 AR-2324BC M / / [id number] Implant System, Proximal Tenodesis Implanted:Qty: 1 on 06/19/2022 by Noam Pearson MD at [facility] Right: Shoulder [employer] [id number] 01/07/2027 AR-2290 / / [id number] Procedures Procedure Name Priority Date/Time Associated Diagnosis Comments COLONOSCOPY Routine 04/16/2021 5:31 AM CDT from Last 3 Months or Most Recently Relevant to Health Maintenance Insurance [employer] [facility] [employer] Interactive [facility] Care Teams Warehouse Stocker Relationship Specialty Start Date End Date Gildardo Garcia MD [address] [place] [address] PCP - General INTERNAL MEDICINE 04/16/21
--- OUTSIDE RECORDS SUMMARY | 2024-12-10 16:06 | XMS_ITS ---
Author Organization Unknown Address [address] [place] [phone] Phone Care Team Providers Care Fiscal Accounting Clerk Name Role Phone KALEN Recinos Attending Unavailable [...] Aure Rutherford M.D. FT: FT Report ID: [id number] Reading Location: [place] [address] Social History Type Status Start Date End Date Code Code Syst em Smoking History Former smoker 5681989 SNOMED CT Sex Female Medications Medication Start Date End Date Route Frequency Dose Code Code System Medication Instructions Home Meds Albuterol Sulfate 0.09MG/1Actuation Inhalation Suspension 03/29/2024 Unknown INHALATION ONCE A DAY 1 unit(s) 2406066 RxNorm 1 EACH INHALATION ONCE A DAY Colace 100MG Oral Capsule, Liquid Filled 03/29/2024 Unknown ORAL ONCE A DAY 100 MILLIGRA MS 3340380 RxNorm TAKE 100 MILLIGRAMS ORAL ONCE A DAY Cyclobenzaprine 10MG Oral Tablet 03/29/2024 Unknown ORAL TWICE A DAY 10 MILLIGRA MS 644549 RxNorm TAKE 10 MILLIGRAMS ORAL TWICE A DAY Escitalopram 5MG Oral Tablet 03/29/2024 Unknown ORAL ONCE A DAY 5 MILLIGRA MS 171791 RxNorm TAKE 5 MILLIGRAMS ORAL ONCE A DAY Estradiol 0.5MG Oral Tablet 03/29/2024 Unknown ORAL ONCE A DAY 0.5 MILLIGRA MS 992985 RxNorm TAKE 0.5 MILLIGRAMS ORAL ONCE A DAY Fibercon 625MG Oral Tablet 03/29/2024 Unknown ORAL ONCE A DAY 625 MILLIGRA MS RxNorm TAKE 625 MILLIGRAMS ORAL ONCE A DAY Latanoprost 0.005% Ophthalmic Solution 03/29/2024 Unknown OPHTHALMIC AT [facility] 1 unit(s) 404839 RxNorm 1 EACH OPHTHALMIC AT BEDTIME Linzess 72MCG Oral Capsule 03/29/2024 Unknown ORAL ONCE A DAY 72 MCG 1196559 RxNorm TAKE 72 MCG ORAL ONCE A DAY Meloxicam 15MG Oral Tablet 03/29/2024 Unknown ORAL NEEDE D 15 MILLIGRA MS 050204 RxNorm TAKE 15 MILLIGRAMS ORAL NEEDED Montelukast Sodium 10MG Oral Tablet 03/29/2024 Unknown ORAL ONCE A DAY 10 MILLIGRA MS 192280 RxNorm TAKE 10 MILLIGRAMS ORAL ONCE A DAY Nortriptyline 10MG Oral Capsule 03/29/2024 Unknown ORAL AT [facility] 381845 RxNorm TAKE 1-2 CAPSULE ORAL AT BEDTIME Ondansetron 4MG Oral Tablet 03/29/2024 Unknown ORAL NEEDE D 4 TIMES A DAY 4 MILLIGRA MS 991120 RxNorm TAKE 4 MILLIGRAMS ORAL NEEDED 4 TIMES A DAY Pantoprazole Sodium 40 MG Oral Tablet, Delayed Release 03/29/2024 Unknown ORAL ONCE A DAY 40 MG 483807 RxNorm TAKE 40 MG ORAL ONCE A DAY Reglan 10MG Oral Tablet 03/29/2024 Unknown ORAL NEEDE D 4 TIMES A DAY 10 MILLIGRA MS 163375 RxNorm TAKE 10 MILLIGRAMS ORAL NEEDED 4 TIMES A DAY Restasis 0.05% Ophthalmic Emulsion 03/29/2024 Unknown OPHTHALMIC TWICE A DAY 1 unit(s) 0680821 RxNorm 1 EACH OPHTHALMIC TWICE A DAY Rizatriptan Benzoate 5MG Oral Tablet, Disintegrating 03/29/2024 Unknown ORAL DIREC JOAN 5 MILLIGRA MS 259815 RxNorm TAKE 5 MILLIGRAMS ORAL DIRECTED Sucralfate 1GM Oral Tablet 03/29/2024 Unknown ORAL 4 TIMES DAILY 1 GM 451841 RxNorm TAKE 1 GM ORAL 4 TIMES DAILY Unisom 25 MG Oral Tablet 03/29/2024 Unknown ORAL AT [facility] 25 MG 1636779 RxNorm TAKE 25 MG ORAL AT BEDTIME valACYclovir HCl 500MG Oral Tablet 03/29/2024 Unknown ORAL ONCE A DAY 500 MILLIGRA MS 223818 RxNorm TAKE 500 MILLIGRAMS ORAL ONCE A [...] Status Code Code System CODEINE Confusion (SNOMED-CT: 719918180) Active 2670 RxNorm LATEX Active 0289674 RxNorm CITRUS Active 52860344 SNOMED-CT AMITIZA Active 551353 RxNorm MOUNJARO Rash (SNOMED-CT: 472288182), RASH (SNOMED-CT: null), RASH (SNOMED-CT: null) Active 8730536 RxNorm SSRI'S Active 4174226 RxNorm ADHESIVES Rash (SNOMED-CT: 357482893), RASH (SNOMED-CT: null), RASH (SNOMED-CT: null) Active Plan of Treatment MRI ABDOMEN WO (94461) 04/27/2024 EGD 03/29/2024 Encounters Encounter Diagnosis Start Date Code Code Sys tem Other specified diseases of liver 04/27/2024 SNOMED-CT Personal Care Team Section Performer Name Performer Role Active Date Inactive Da te Imaging Narrative Notes
== END 2024-12-10 09:23 | disposition home or self-care (01) ==
PROVIDERS: PCP Family Medicine; Visit Provider Obstetrics & Gynecology
DX: Z12.31 Encounter for screening mammogram for malignant neoplasm of breast (principal)
CPT/HCPCS: 77063; 77067

== ENCOUNTER 2024-12-28 14:34 | Outpatient (CLI) | payer BC, SELFPAY ==
--- NOTE | ~2024-12-28 | CT_ITS ---
CT Scan of the Chest without Contrast: Clinical Indication: Pulmonary nodule Technique: Contiguous sections were acquired throughout the chest without intravenous contrast. Dose reduction technique was used on this scan by utilizing automated exposure control and iterative recon struction technique. The dose-length product (DLP) was 108.41 mGy-cm. COMPARISON: 06/28/2024 Findings: There is no evidence of any significant mediastinal, hilar or axillary lymphadenopathy. The mediastin al soft tissues appear normal. There is no evidence of pleural or pericardial effusion. The lungs are clear. No pulmonary nodules or infiltrates are noted. Images through the upper abdomen reveal no abnormalities. Impression: No significant abnormalities seen. Lingular nodules seen on prior exam are no longer seen. Reviewed, dictated and finalized at location . Impression: No significant abnormalities seen. Lingular nodules seen on prior exam are no l onger seen.
--- OUTSIDE RECORDS SUMMARY | 2024-12-28 14:46 | XMS_ITS | Encounter Summary ---
Author Organization [facility] Address [address] [place] [address] Care Team Providers Care Project Intern Name Role Phone Gildardo Garcia MD Primary Care Provider [phone] Vance Isbell MD Primary Care Provider [phone] Reason for Visit * Reason Onset Date Comments Treatment 06/23/2019 Encounter Details Date Type Department Care Team (Late st Contact Info) Description 06/23/2019 Telephone [facility] - ROLLER STAINER [address] [address] Juan Sears Che, MD [address] [place] [address] [address] [place] [address] Treatment Social History Tobacco Use [...] bleeding and Nausea from surgery on 06/20/19 MOBILE RELOCATION ENGINEER documented in this encounter Plan of Treatment Upcoming Encounters Date Type Department Care Team (Late st Contact Info) Description 02/03/2025 3:30 PM CDT Office Visit [facility] - ROLLER STAINER [address], [facility] [address] [place] [address] Juan Sears Che, MD [address] [facility] [address] [place] [phone] 07/19/2025 11:30 AM AUTOMOBILE RELOCATION ENGINEER Office Visit [facility] - ROLLER STAINER [address], [facility] [address] [place] [address] Juan Sears Che, MD [address] [facility] [facility] [address] [place] [address] documented as of this encounter Visit Diagnoses Not on filedocumented in this encounter Care Teams Project Intern Relationship Specialty Start Date End Date Gildardo Garcia MD [address] [place] [address] PCP - General 04/20/18 07/26/24 Vance Isbell MD [address] [place] [address] PCP - General Family Medicine 07/27/24 documented as of this encounter
--- OUTSIDE RECORDS SUMMARY | 2024-12-28 14:46 | XMS_ITS | Clinical Summary ---
Author Organization [facility] Care Team Providers Care Account Adjuster Name Role Phone Unavailable Primary Care Provider [...]
--- OUTSIDE RECORDS SUMMARY | 2024-12-28 14:46 | XMS_ITS ---
Author Organization Unknown Address [address] [place] [phone] Phone Care Team Providers Care Cable Testers Helper Name Role Phone IRENE Robb Attending Unavailable BRIAN MIRANDA LEARNING AND DEVELOPMENT ANALYST Unavailable CHARLEEN HIPOLITO Primary Unavailable Immunization Immunization [...] Code Syst em Smoking History Former smoker 6386083 SNOMED CT Sex Female Vital Signs Vital Sign Value Unit [place] Value [place] Unit Date/Time Recent/Initial? Code Code System Body Mass Index 28.87 kg/m2 03/29/2024 07:41 Most Recent 75817 -5 LOINC Body Mass Index 28.87 kg/m2 03/21/2024 14:45 Initial 14363 -5 LOINC Systolic Blood Pressure 113 mm[Hg] [...] O2 Saturation 100 % 2023 07:39 Initial 82330 -5 LOINC Pulse 79.0 /min 03/29/2024 07:39 Initial 8867- 4 LOINC Respiration 12 /min 03/29/20 07:39 Initial 9279- 1 INC Temperature 36.3 Emma 97.3 F 03/29/20 07:39 Initial 8310- 5 LOINC Weight 73.94 kg 163.00 lbs 03/29/2024 07:41 Most Recent 70436 -7 LOINC Weight 73.94 kg 163.00 lbs 03/21/2024 14:45 Initial 73084 -7 [facility] Medications Medication Start Date End Date Route Frequency Dose Code Code System Medication Instructions Home Meds Albuterol Sulfate 0.09MG/1Actuation Inhalation Suspension 03/29/2024 Unknown INHALATION ONCE A DAY 1 unit(s) 7389299 RxNorm 1 EACH INHALATION ONCE A DAY Colace 100MG Oral Capsule, Liquid Filled 03/29/2024 Unknown ORAL ONCE A DAY 100 MILLIGRA MS 4764953 RxNorm TAKE 100 MILLIGRAMS ORAL ONCE A DAY Cyclobenzaprine 10MG Oral Tablet 03/29/2024 Unknown ORAL TWICE A DAY 10 MILLIGRA MS 335023 RxNorm TAKE 10 MILLIGRAMS ORAL TWICE A DAY Escitalopram 5MG Oral Tablet 03/29/2024 Unknown ORAL ONCE A DAY 5 MILLIGRA MS 435073 RxNorm TAKE 5 MILLIGRAMS ORAL ONCE A DAY Estradiol 0.5MG Oral Tablet 03/29/2024 Unknown ORAL ONCE A DAY 0.5 MILLIGRA MS 738457 RxNorm TAKE 0.5 MILLIGRAMS ORAL ONCE A DAY Fibercon 625MG Oral Tablet 03/29/2024 Unknown ORAL ONCE A DAY 625 MILLIGRA MS RxNorm TAKE 625 MILLIGRAMS ORAL ONCE A DAY Latanoprost 0.005% Ophthalmic Solution 03/29/2024 Unknown OPHTHALMIC AT [place] 1 unit(s) 406623 RxNorm 1 EACH OPHTHALMIC AT BEDTIME Linzess 72MCG Oral Capsule 03/29/2024 Unknown ORAL ONCE A DAY 72 MCG 4388935 RxNorm TAKE 72 MCG ORAL ONCE A DAY Meloxicam 15MG Oral Tablet 03/29/2024 Unknown ORAL NEEDE D 15 MILLIGRA MS 041561 RxNorm TAKE 15 MILLIGRAMS ORAL NEEDED Montelukast Sodium 10MG Oral Tablet 03/29/2024 Unknown ORAL ONCE A DAY 10 MILLIGRA MS 259279 RxNorm TAKE 10 MILLIGRAMS ORAL ONCE A DAY Nortriptyline 10MG Oral Capsule 03/29/2024 Unknown ORAL AT BED[place] ME 19791113 RxNorm TAKE 1-2 CAPSULE ORAL AT BEDTIME Ondansetron 4MG Oral Tablet 03/29/2024 Unknown ORAL NEEDE D 4 TIMES A DAY 4 MILLIGRA MS 482831 RxNorm TAKE 4 MILLIGRAMS ORAL NEEDED 4 TIMES A DAY Pantoprazole Sodium 40 MG Oral Tablet, Delayed Release 03/29/2024 Unknown ORAL ONCE A DAY 40 MG 979576 RxNorm TAKE 40 MG ORAL ONCE A DAY Reglan 10MG Oral Tablet 03/29/2024 Unknown ORAL NEEDE D 4 TIMES A DAY 10 MILLIGRA MS 005103 RxNorm TAKE 10 MILLIGRAMS ORAL NEEDED 4 TIMES A DAY Restasis 0.05% Ophthalmic Emulsion 03/29/2024 Unknown OPHTHALMIC TWICE A DAY 1 unit(s) 7293243 RxNorm 1 EACH OPHTHALMIC TWICE A DAY Rizatriptan Benzoate 5MG Oral Tablet, Disintegrating 03/29/2024 Unknown ORAL DIREC JOAN 5 MILLIGRA MS 100687 RxNorm TAKE 5 MILLIGRAMS ORAL DIRECTED Sucralfate 1GM Oral Tablet 03/29/2024 Unknown ORAL 4 TIMES DAILY 1 GM 162762 RxNorm TAKE 1 GM ORAL 4 TIMES DAILY Unisom 25 MG Oral Tablet 03/29/2024 Unknown ORAL AT BEDTI ME 25 MG 7481564 RxNorm TAKE 25 MG ORAL AT BEDTIME valACYclovir HCl 500MG Oral Tablet 03/29/2024 Unknown ORAL ONCE A DAY 500 MILLIGRA MS 538876 RxNorm TAKE 500 MILLIGRAMS ORAL ONCE A DAY Hospital Discharge Instructions Should you have any questions prior to discharge, please contact a member of your healthcare team. If you have left the hospital and have any questions, please contact your primary care physician. Reason For Referral No Data Found Procedures Procedure Name Date Status Code Code Syste m Breast augmentation completed 80543971 SNOME DCT Anesthesia for upper gastroi ntestinal endoscopic procedures, endoscope int 03/29/2024 completed 21234 CPT Hysterectomy completed 777204635 SNOMEDCT Cholecystectomy completed 57248687 SNOMEDCT Esophagogastroduodenoscopy, flexible, transoral; with biopsy, single or mu 03/29/2024 completed 37552 CPT Sphincterotomy by ERCP completed 179412476 SN OMEDCT EGD completed 720012551 SNOMEDCT Colon completed 18418497 SNOMEDCT Allergies and Adverse Reactions Allergy Substance Reaction Severity Start Date Concern Status Code Code System CODEINE Confusion (SNOMED-CT: 947868658) Active 2670 RxNorm LATEX Active 9365487 RxNorm CITRUS Active 37377667 SNOMED-CT AMITIZA Active 951258 RxNorm MOUNJARO Rash (SNOMED-CT: 359888744), RASH (SNOMED-CT: null), RASH (SNOMED-CT: null) Active 7408776 RxNorm SSRI'S Active 0432184 RxNorm ADHESIVES Rash (SNOMED-CT: 973749042), RASH (SNOMED-CT: null), RASH (SNOMED-CT: null) Active Plan of Treatment MRI ABDOMEN WO (95166) 04/27/2024 EGD 03/29/2024 Encounters Encounter Diagnosis Start Date Code Code Sys tem Unspecified chronic gastritis without bleeding 024 SNOMED-CT Personal Care Team Section Performer Name Performer Role Active Date Inactive Da savanna
--- OUTSIDE RECORDS SUMMARY | 2024-12-28 14:46 | XMS_ITS ---
Author Organization Unknown Address [address] [place] [address] [phone] Phone Care Team Providers Care Mechanic Marine Engine Name Role Phone KALEN Recinos Attending Unavailable [...] once per week, now; hx of pancreatitis c.2016, for which the pt was hospitalized. No [...] Aure Rutherford M.D. FT: FT Report ID: [id number] Reading Location: [place] [address] Social History Type Status Start Date End Date Code Code Syst em Smoking History Former smoker 7664965 SNOMED CT Sex Female Medications Medication Start Date End Date Route Frequency Dose Code Code System Medication Instructions Home Meds Albuterol Sulfate 0.09MG/1Actuation Inhalation Suspension 03/29/2024 Unknown INHALATION ONCE A DAY 1 unit(s) 7777516 RxNorm 1 EACH INHALATION ONCE A DAY Colace 100MG Oral Capsule, Liquid Filled 03/29/2024 Unknown ORAL ONCE A DAY 100 MILLIGRA MS 8554912 RxNorm TAKE 100 MILLIGRAMS ORAL ONCE A DAY Cyclobenzaprine 10MG Oral Tablet 03/29/2024 Unknown ORAL TWICE A DAY 10 MILLIGRA MS 123916 RxNorm TAKE 10 MILLIGRAMS ORAL TWICE A DAY Escitalopram 5MG Oral Tablet 03/29/2024 Unknown ORAL ONCE A DAY 5 MILLIGRA MS 865173 RxNorm TAKE 5 MILLIGRAMS ORAL ONCE A DAY Estradiol 0.5MG Oral Tablet 03/29/2024 Unknown ORAL ONCE A DAY 0.5 MILLIGRA MS 644587 RxNorm TAKE 0.5 MILLIGRAMS ORAL ONCE A DAY Fibercon 625MG Oral Tablet 03/29/2024 Unknown ORAL ONCE A DAY 625 MILLIGRA MS RxNorm TAKE 625 MILLIGRAMS ORAL ONCE A DAY Latanoprost 0.005% Ophthalmic Solution 03/29/2024 Unknown OPHTHALMIC AT [facility] 1 unit(s) 035755 RxNorm 1 EACH OPHTHALMIC AT BEDTIME Linzess 72MCG Oral Capsule 03/29/2024 Unknown ORAL ONCE A DAY 72 MCG 4937235 RxNorm TAKE 72 MCG ORAL ONCE A DAY Meloxicam 15MG Oral Tablet 03/29/2024 Unknown ORAL NEEDE D 15 MILLIGRA MS 633573 RxNorm TAKE 15 MILLIGRAMS ORAL NEEDED Montelukast Sodium 10MG Oral Tablet 03/29/2024 Unknown ORAL ONCE A DAY 10 MILLIGRA MS 009239 RxNorm TAKE 10 MILLIGRAMS ORAL ONCE A DAY Nortriptyline 10MG Oral Capsule 03/29/2024 Unknown ORAL AT [facility] 006451 RxNorm TAKE 1-2 CAPSULE ORAL AT BEDTIME Ondansetron 4MG Oral Tablet 03/29/2024 Unknown ORAL NEEDE D 4 TIMES A DAY 4 MILLIGRA MS 866569 RxNorm TAKE 4 MILLIGRAMS ORAL NEEDED 4 TIMES A DAY Pantoprazole Sodium 40 MG Oral Tablet, Delayed Release 03/29/2024 Unknown ORAL ONCE A DAY 40 MG 441399 RxNorm TAKE 40 MG ORAL ONCE A DAY Reglan 10MG Oral Tablet 03/29/2024 Unknown ORAL NEEDE D 4 TIMES A DAY 10 MILLIGRA MS 504152 RxNorm TAKE 10 MILLIGRAMS ORAL NEEDED 4 TIMES A DAY Restasis 0.05% Ophthalmic Emulsion 03/29/2024 Unknown OPHTHALMIC TWICE A DAY 1 unit(s) 0164613 RxNorm 1 EACH OPHTHALMIC TWICE A DAY Rizatriptan Benzoate 5MG Oral Tablet, Disintegrating 03/29/2024 Unknown ORAL DIREC JOAN 5 MILLIGRA MS 403354 RxNorm TAKE 5 MILLIGRAMS ORAL DIRECTED Sucralfate 1GM Oral Tablet 03/29/2024 Unknown ORAL 4 TIMES DAILY 1 GM 515653 RxNorm TAKE 1 GM ORAL 4 TIMES DAILY Unisom 25 MG Oral Tablet 03/29/2024 Unknown ORAL AT [facility] 25 MG 1346409 RxNorm TAKE 25 MG ORAL AT BEDTIME valACYclovir HCl 500MG Oral Tablet 03/29/2024 Unknown ORAL ONCE A DAY 500 MILLIGRA MS 329640 RxNorm TAKE 500 MILLIGRAMS ORAL ONCE A [...] Status Code Code System CODEINE Confusion (SNOMED-CT: 471125976) Active 2670 RxNorm LATEX Active 3874520 RxNorm CITRUS Active 78641516 SNOMED-CT AMITIZA Active 624434 RxNorm MOUNJARO Rash (SNOMED-CT: 068074427), RASH (SNOMED-CT: null), RASH (SNOMED-CT: null) Active 4781853 RxNorm SSRI'S Active 8479679 RxNorm ADHESIVES Rash (SNOMED-CT: 014460902), RASH (SNOMED-CT: null), RASH (SNOMED-CT: null) Active Plan of Treatment MRI ABDOMEN WO (41689) 04/27/2024 EGD 03/29/2024 Encounters Encounter Diagnosis Start Date Code Code Sys tem Other specified diseases of liver 04/27/2024 SNOMED-CT Personal Care Team Section Performer Name Performer Role Active Date Inactive Da te Imaging Narrative Notes
--- OUTSIDE RECORDS SUMMARY | 2024-12-28 14:46 | XMS_ITS | Clinical Summary ---
Author Organization [facility] Address [address] [place] [address] Care Team Providers Care Overage Shortage And Damage Clerk Name Role Phone Vance Isbell MD Primary Care Provider Source Comments [facility],non-owned Affiliates and Associated Physician Practices is amultiple site organization consisting of ambulatory clinics and hospital sitesin [place], [place], [place] and [place]. This disclosure is being madepursuant to the Care Everywhere program and may not contain all information available regarding this patient. Last updated 18.[facility] Allergies Active Allergy Reactions Criticality Noted Date Comments Adhesive Sensitivity Other 05/03/2019 blisters Codeine Psychiatric High made her crazy [place] Fruit Other 05/10/2023 Medications * Be aware [...] Description 10/18/2024 10:30 AM CDT Office Visit [facility] - NON LICENSED OPERATOR [address], [facility] [address] [place] [address] Juan Sears Che, MD OAB [...] CDT Respiratory Rate 16 06/21/2019 8:48 AM COMPENSATION AND BENEFITS ANALYST Oxygen Saturation 95% 05/29/2022 2:08 PM CDT [...] CDT Office Visit [facility] - NON LICENSED OPERATOR [address], [address] [address] Juan Sears Che, MD [address] [address] 07/19/2025 11:30 AM COMPENSATION AND BENEFITS ANALYST Office Visit [facility] - NON LICENSED OPERATOR [address], [facility] [address] [place] [address] Juan Sears Che, MD [address] [facility] [address] [place] [address] Health Maintenance Due Date Last [...] this topic Medical Devices Implanted Type Area Sock Turner Device Identifier Shelf Expiration Date Model / Serial / Lot Sys Ureth Supp Obtryx Midurethral Trnstr Implanted:Qty: 1 on 06/20/2019 by Juan Sears Che, MD at [facility] [employer] 04/25/2022 [id number] / / [id number] Procedures Procedure Name Priority Date/Time Associated Diagnosis Comments IA INSERT NON-INDWELLING BLADDER Routine 10/18/2024 11:01 AM [...] Recently Relevant to Health Maintenance Results * IA INSERT NON-INDWELLING BLADDER (10/18/2024 11:01 AM CDT) [...] URINE COMPREHENSIVE (10/18/2024 10:56 AM CDT) Pathologist [facility] Culture [facility] Comment: CULTURE, URINE, SPECIAL Micro Number: [id number] Test Status: Final Specimen Source: Urine, catheter Specimen Quality: Adequate Result: No Growth Test Performed at: [facility] [id number] COLLEEN [place] MD Microbiology URINE SPECIMEN COLLECTION, CATHETERIZED / Unknown 10/18/2024 10:56 AM CDT 10/19/2024 3:15 AM CDT us Juan Sears MD LAB - MICROBIOLOGY ORDERABLES F inal Result [facility] [address] [place] [address] * URINALYSIS AUTO - POINT OF CARE (AMB) [facility] (10/18/2024) Glucose UA neg OTHER LAB Bilirubin UA POCT neg OTHER LAB Ketones UA POCT neg OTHER LAB Specific [place] UA 1.005 OTHER LAB Blood Urine POCT neg OTHER LAB pH UA 6.0 OTHER LAB Protein UA neg OTHER LAB Urobilinogen UA 0.2 OTHER LAB Nitrite UA neg OTHER LAB WBC UA neg OTHER LAB Urine URINE / Unknown 10/18/2024 Juan Sears MD LAB - POINT OF CARE ORDERABLES Final Result Performing Organization Address City/[facility]/ZIP [...] COMPARISON: Serial examinations dating back to 08/15/2019 ([facility] and this facility TECHNIQUE: BILATERAL digital breast [...] Health Maintenance Insurance ANTHEM ANTHEM Care Teams Overage Shortage And Damage Clerk Relationship Specialty Start Date End Date Vance Isbell MD [address] [place] [address] PCP - General Family Medicine 07/27/24
== END 2024-12-28 14:35 | disposition home or self-care (01) ==
PROVIDERS: PCP Family Medicine; Visit Provider Family Medicine
DX: R91.1 Solitary pulmonary nodule (principal)
CPT/HCPCS: 71250

== ENCOUNTER 2025-03-07 10:36 | Outpatient (CLI) | payer BC, SELFPAY ==
--- OUTSIDE RECORDS SUMMARY | 2025-03-07 10:46 | XMS_ITS | Clinical Summary ---
Author Organization [facility] Care Team Providers Care Superintendent Construction Name Role Phone Unavailable Primary Care Provider [...]
--- OUTSIDE RECORDS SUMMARY | 2025-03-07 10:47 | XMS_ITS | Clinical Summary ---
Author Organization [facility] Address [address] [place] [address] Care Team Providers Care Fitter Hand Name Role Phone Gildardo Garcia MD Primary Care Provider [phone] Allergies Active Allergy Reactions Criticality Noted Date [...] Comments Blood Pressure 135/80 06/19/2022 1:30 PM QUALITY ASSURANCE INSPECTOR Pulse 89 06/19/2022 1:30 PM QUALITY ASSURANCE INSPECTOR Temperature 36.3 C (97.4 F) 06/19/2022 1:30 PM QUALITY ASSURANCE INSPECTOR Respiratory Rate 20 06/19/2022 1:30 PM QUALITY ASSURANCE INSPECTOR Oxygen Saturation 93% 06/19/2022 1:30 PM QUALITY ASSURANCE INSPECTOR Inhaled Oxygen Concentration - - Weight 77.1 kg (170 lb) 09/24/2022 4:13 PM QUALITY ASSURANCE INSPECTOR Height 160 cm (5' 3) 09/24/2022 4:13 PM QUALITY ASSURANCE INSPECTOR Body Mass Index 30.11 09/24/2022 4:13 PM QUALITY ASSURANCE INSPECTOR Plan of Treatment Health Maintenance Due Date [...] this topic Medical Devices Implanted Type Area Food Expeditor Device Identifier Shelf Expiration Date Model / Serial / Lot [place] Suture Bio-Swivelock C Arthrex - [id number] Implanted:Qty: 1 on 06/19/2022 by Noam Pearson MD at [facility] [place] Right: Shoulder [employer] [id number] 11/07/[address] AR-[address] / / [id number] [place] Suture Bio-Swivelock C Arthrex White/Black 4.75 X 19.1mm - [id number] Implanted:Qty: 1 on 06/19/2022 by Noam Pearson MD at [facility] [place] Right: Shoulder [employer] [id number] 11/07/2025 AR-2324BC CTT / / [id number] [place] Suture Swivelock Self Punch 24.5mm Biocomposite - [id number] Implanted:Qty: 1 on 06/19/2022 by Noam Pearson MD at [facility] [place] Right: Shoulder [employer] [id number] 02/06/2026 AR-2324BC M / / [id number] [place] Suture Swivelock Self Punch 24.5mm Biocomposite - [id number] Implanted:Qty: 1 on 06/19/2022 by Noam Pearson MD at [facility] [place] Right: Shoulder [employer] [id number] 02/06/2026 JENNIFER-2324BC M / / [id number] [place] Suture Swivelock Self Punch 24.5mm Biocomposite - [id number] Implanted:Qty: 1 on 06/19/2022 by Noam Pearson MD at [facility] [place] Right: Shoulder [employer] [id number] 02/06/2026 AR-2324BC M / / [id number] Implant System, Proximal Tenodesis Implanted:Qty: 1 on 06/19/2022 by Noam Pearson MD at [facility] Right: Shoulder [employer] [id number] 01/07/2027 AR-2290 / / [id number] Procedures Procedure Name Priority Date/Time Associated Diagnosis Comments COLONOSCOPY Routine 04/16/2021 5:31 AM CDT from Last 3 Months or Most Recently Relevant to Health Maintenance Insurance [place] [employer] [facility] [employer] [facility] Care Teams Fitter Hand Relationship Specialty Start Date End Date Gildardo Garcia MD [address] [place] [address] PCP - General INTERNAL MEDICINE 04/16/21
--- OUTSIDE RECORDS SUMMARY | 2025-03-07 10:47 | XMS_ITS | Encounter Summary ---
Author Organization [facility] Address [address] [place] [address] Care Team Providers Care Cisco Certified Network Associate Name Role Phone Gildardo Garcia MD Primary Care Provider [phone] Vance Isbell MD Primary Care Provider [phone] Reason for Visit * Reason Onset Date Comments Treatment 06/23/2019 Encounter Details Date Type Department Care Team (Late st Contact Info) Description 06/23/2019 Telephone [facility] - ORTHOTICS TECHNICIAN [address] [address] Juan Sears Che, MD [address] [place] [address] Treatment Social History Tobacco Use Types [...] bleeding and Nausea from surgery on 06/20/19 LOOP MACHINE OPERATOR documented in this encounter Plan of Treatment Upcoming Encounters Date Type Department Care Team (Late st Contact Info) Description 04/19/2025 11:10 AM CDT Office Visit [facility] - ORTHOTICS TECHNICIAN [address], [address] [place] [address] Juan Sears Che, MD [address] [place] [address] documented as of this encounter Visit Diagnoses Not on filedocumented in this encounter Care Teams Cisco Certified Network Associate Relationship Specialty Start Date End Date Gildardo Garcia MD [address] [place] [address] PCP - General 04/20/18 07/26/24 Vance Isbell MD [address] [place] [address] PCP - General Family Medicine 07/27/24 documented as of this encounter
--- OUTSIDE RECORDS SUMMARY | 2025-03-07 10:47 | XMS_ITS | Clinical Summary ---
Author Organization [facility] Address [address] [facility] [place] [address] Care Team Providers Care Plastic Surgery Nurse Name Role Phone Vance Isbell MD Primary Care Provider [phone] Source Comments [facility],non-owned Affiliates and Associated Physician Practices is amultiple site organization consisting of ambulatory clinics and hospital sitesin [place], [place], [place] and [place]. This disclosure is being madepursuant to the Care Everywhere program and may not contain all information available regarding this patient. Last updated 18.[facility] Allergies Active Allergy Reactions Criticality Noted Date Comments Adhesive Sensitivity Other 05/03/2019 blisters Codeine Psychiatric High made her crazy [place] Fruit Other 05/10/2023 Medications * Be aware that medications may not be up to date on this document. Alwaysverify current medications with the patient. PROAIR HFA [...] (one) capsule by mouth once daily Active fesoterodine CR 24hr (Toviaz) 8 MG tablet Take 1 (one) tablet by mouth once daily 30 tablet 2 5 Active rosuvastatin (Crestor) 10 MG tablet 5 Active Active Problems Problem Noted Date Diagnosed Date Urgency of urination 07/28/2019 Urinary, incontinence, stress female Midline cystocele Encounters Date Type Department Care Team Description 03/03/2025 Refill [facility] - MORTUARY TECHNICIAN [address] [address] Juan Sears Che, MD Refill Request 02/03/2025 3:30 PM CDT Office Visit [facility] - MORTUARY TECHNICIAN [address] [address] Juan Sears Che, MD Post-void dribbling (Primary Dx); Urge incontinence 02/03/2025 Travel 01/30/2025 Refill [facility] - MORTUARY TECHNICIAN [address] [phone] Juan Sears Che, MD Refill Request from Last 3 Months Family History Medical [...] Answer Date Recorded Patient Health Questionnaire-2 Score 0 01/27/2025 Comments No Sex and Gender Information Value [...] CDT Respiratory Rate 16 06/21/2019 8:48 AM NIGHT CLERK Oxygen Saturation 95% 05/29/2022 2:08 PM CDT Inhaled Oxygen Concentration - - Weight 80.6 kg (177 lb 12.8 oz) 025 10:49 AM CDT Height 160 cm (5' 3) 10/18/2024 10:49 AM CDT Body Mass Index 31.5 10/18/2024 10:49 AM CDT Plan of Treatment Upcoming Encounters Date Type Department Care Team (Late st Contact Info) Description 04/19/2025 11:10 AM CDT Office Visit [facility] - MORTUARY TECHNICIAN [address] [facility] [address] [place] [address] Juan Sears Che, MD [address] [facility] [address] [place] [address] Health Maintenance Due Date Last Done Comments COLOGUARD (AGES 45-75) - COLON CA SCREENING 1962 CT COLONOGRAPHY - COLON CA SCREENING 1962 FIT - COLON CA SCREENING 1962 FLEX SIG - COLON CA SCREENING 1962 HIV SCREENING 1977 HEPATITIS C SCREENING 10/22/1980 DTAP/TDAP/TD VACCINES (1 - Tdap) 1981 PNEUMOCOCCAL VACCINE 50+ (1 of 1 - PCV) 2012 ZOSTER VACCINE (1 of 2) 2012 COVID-19 VACCINE (4 - season) 2024 07/05/2021, 10/19/2020, 09/28/2020 SCREENING FOR DIABETES 07/27/2024 MAMMOGRAM 11/26/2024 11/26/2022, 10/10, 11/09/2020, Additional history exists INFLUENZA VACCINE (#1) 2025 COLON MONITORING 04/16/2031 04/16/2021 COLONOSCOPY - COLON CA SCREENING 04/16/2031 04/16/2021 [...] this topic Medical Devices Implanted Type Area Windows Server Architect Device Identifier Shelf Expiration Date Model / Serial / Lot Sys Ureth Supp Obtryx Midurethral Trnstr Implanted:Qty: 1 on 06/20/2019 by Juan Sears Che, MD at [facility] 04/25/2022 [id number] / / [id number] Procedures Procedure Name Priority Date/Time Associated Diagnosis Comments MAMMO BILAT SCREENING W REAGAN Routine 11/26/2022 1:49 PM CDT Visit for screening mammogram from Last 3 Months or Most Recently Relevant to Health Maintenance Results * MAMMO BILAT SCREENING W REAGAN (11/26/2022 [...] COMPARISON: Serial examinations dating back to 08/15/2019 ([facility] and this facility TECHNIQUE: BILATERAL digital breast [...] Most Recently Relevant to Health Maintenance Insurance ANTH Care Teams Plastic Surgery Nurse Relationship Specialty Start Date End Date Vance Isbell MD [address] [place] [address] PCP - General Family Medicine 07/27/24
--- OUTSIDE RECORDS SUMMARY | 2025-03-07 10:47 | XMS_ITS | Encounter Summary ---
Author Organization [facility] Address [address] [place] [address] Care Team Providers Care Banquet Supervisor Name Role Phone Gildardo Garcia MD Primary Care Provider [phone] Encounter Details Date Type Department Care Team (Late st Contact Info) Description 05/28/2022 [employer] Message Enc [facility] [address], [address] [address] Noam Pearson MD [address] [place] [id number] Visit Follow Up Social History Tobacco Use [...] on filedocumented in this encounter Care Teams Banquet Supervisor Relationship Specialty Start Date End Date Gildardo Garcia MD [address] [place] [address] PCP - General INTERNAL MEDICINE 04/16/21 documented as of this encounter
--- OUTSIDE RECORDS SUMMARY | 2025-03-07 10:47 | XMS_ITS | Encounter Summary ---
Author Organization [facility] Address [facility] [place] [address] Care Team Providers Care Student Driving Instructor Name Role Phone Vance Isbell MD Primary Care Provider [phone] Reason for Visit * Reason Comments Refill Request Encounter Details Date Type Department Care Team (Late st Contact Info) Description 03/03/2025 Refill [facility] - PANEL SAW OPERATOR [address], [facility] [address] [place] [address] Juan Sears Che, MD [address] [facility] [address] [place] [address] Refill Request Social History Tobacco Use Types Packs/Day Years [...] encounter Miscellaneous Notes * Telephone Encounter - Crystal Peters RN - 03/03/2025 2:51 PM CDT Plan: 02/03/2025 To continue fesoterodine (Toviaz) 8 mg, but to tamponade with toilet paper after voiding, and to contact me in a week. If not better may add +/- mirabegron (Myrbetriq) to fesoterodine (Toviaz). To return in 3 months. Scripted 3 months of Toviaz on 12/08/2024. No FU call, NOV 04/19/2025. Will deny with a note to contact office with symptoms. documented in this encounter Plan of Treatment Upcoming Encounters Date Type Department Care Team (Late st Contact Info) Description 04/19/2025 11:10 AM CDT Office Visit [facility] - PANEL SAW OPERATOR [address], [facility] [address] [place] [address] Juan Sears Che, MD [address] [facility] [address] [place] [address] documented as of this encounter Visit Diagnoses Not on filedocumented in this encounter Care Teams Student Driving Instructor Relationship Specialty Start Date End Date Vance Isbell MD [address] [employer], [place] [id number] PCP - General Family Medicine 07/27/24 documented as of this encounter
--- NOTE | 2025-03-07 10:48 | EST_ITS ---
Patient Info Name: Laly Osorio Age: 64 years : 1960 Gender: Female Ht: 63 in Wt: 176 lbs BSA: 1.91 m2 Exam Date: 03/07/2025 10:48 AM Patient Status: O Admit Date: 03/07/2025 Exam Type: CA stress test treadmill A treadmill exercise stress test was performed. Staff Attending Provider: Vance Isbell Exercise Technologist: Jennifer Muñiz Exercise Physician: Akbar Almonte DO Summary 1. 1. Negative Francisco J exercise stress test for ischemic ST changes by ECG criteria. 2. 2. Reduced functional capacity, achieving 7 METs of workload. 3. 3. Appropriate HR response to exercise. 4. 4. Appropriate HR recovery at 1 minute post exercise. 5. 5. No imaging with stress testing. 6. 6. Patient informed of the above results. Protocol: Francisco J Stress ECG Details Stage: REST Duration (min): 1 min : 4 sec Speed (mph): 0.0 Grade (%): 0 HR (bpm): 76 SBP (mmHg): 137 DBP (mmHg): 79 METS: --- Stage: REST Duration (min): 2 min : 55 sec Speed (mph): 0.0 Grade (%): 0 HR (bpm): 75 SBP (mmHg): 137 DBP (mmHg): 79 METS: --- Stage: STAGE 1 Duration (min): 1 min : 0 sec Speed (mph): 1.7 Grade (%): 10 HR (bpm): 102 SBP (mmHg): 137 DBP (mmHg): 79 METS: --- Stage: STAGE 1 Duration (min): 2 min : 0 sec Speed (mph): 1.7 Grade (%): 10 HR (bpm): 123 SBP (mmHg): 137 DBP (mmHg): 79 METS: --- Stage: STAGE 1 Duration (min): 3 min : 0 sec Speed (mph): 1.7 Grade (%): 10 HR (bpm): 126 SBP (mmHg): 137 DBP (mmHg): 79 METS: --- Stage: STAGE 2 Duration (min): 1 min : 0 sec Speed (mph): 2.5 Grade (%): 12 HR (bpm): 131 SBP (mmHg): 145 DBP (mmHg): 82 METS: --- Stage: STAGE 2 Duration (min): 2 min : 0 sec Speed (mph): 2.5 Grade (%): 12 HR (bpm): 137 SBP (mmHg): 166 DBP (mmHg): 62 METS: --- Stage: STAGE 2 Duration (min): 3 min : 0 sec Speed (mph): 2.5 Grade (%): 12 HR (bpm): 141 SBP (mmHg): 166 DBP (mmHg): 62 METS: --- Stage: RECOVERY Duration (min): 0 min : 59 sec Speed (mph): 0.0 Grade (%): 0 HR (bpm): 120 SBP (mmHg): 152 DBP (mmHg): 67 METS: --- Stage: RECOVERY Duration (min): 1 min : 59 sec Speed (mph): 0.0 Grade (%): 0 HR (bpm): --- SBP (mmHg): 152 DBP (mmHg): 67 METS: --- Stage: RECOVERY Duration (min): 2 min : 59 sec Speed (mph): 0.0 Grade (%): 0 HR (bpm): 90 SBP (mmHg): 152 DBP (mmHg): 67 METS: --- Stage: RECOVERY Duration (min): 3 min : 43 sec Speed (mph): 0.0 Grade (%): 0 HR (bpm): --- SBP (mmHg): 131 DBP (mmHg): 84 METS: --- Rest HR: 75 bpm Peak HR: 141 bpm Rest Sys BP: 137 mmHg Peak Sys BP: 166 mmHg Max Pred HR: 158 bpm % Max Pred HR: 89 % Target HR: 134 bpm Max RPP: 23,406 bpm*mmHg Mendoza Score: 3 Termination Reason: Reached target heart rate or workload Cardiac Symptoms: Shortness of breath Max ST Seg Deviation: 0.60 mm Total Time: 6 min : 0 sec Rest Beltrán BP: 79 mmHg Peak Beltrán BP: 62 mmHg Angina Score: None Total METS: 7.1 Resting ECG Sinus rhythm. Stress ECG No ST changes. Arrhythmias None. Report Signatures
== END 2025-03-07 10:37 | disposition home or self-care (01) ==
PROVIDERS: PCP Family Medicine; Visit Provider Family Medicine
DX: I25.10 Atherosclerotic heart disease of native coronary artery without angina pectoris (principal)
CPT/HCPCS: 93017

== ENCOUNTER 2025-05-17 08:46 | Outpatient (CLI) | payer BC, SELFPAY ==
[2025-05-17 09:03] LABS: Hematocrit 45.1 % (35.0-49.0); Hemoglobin 14.7 g/dL (12.0-15.0); Mean Corpuscular HGB Conc 32.6 g/dL (32-36); Mean Corpuscular Hemoglobin 30.1 pg (27.0-31.0); Mean Corpuscular Volume 92.2 fL (78.0-102.0); Platelet Count Result 248 K/mm3 (150-420); Red Blood Count 4.89 M/mm3 (4.20-5.40); White Blood Count 6.1 K/mm3 (4.8-10.8)
== END 2025-05-17 08:47 | disposition home or self-care (01) ==
LOC: CHSLAB 08:47
PROVIDERS: PCP Family Medicine; Visit Provider Family Medicine
DX: Z00.00 Encounter for general adult medical examination without abnormal findings (principal); R74.01 Elevation of levels of liver transaminase levels; D75.1 Secondary polycythemia; N17.9 Acute kidney failure, unspecified; K58.9 Irritable bowel syndrome, unspecified; F41.1 Generalized anxiety disorder; K21.9 Gastro-esophageal reflux disease without esophagitis
CPT/HCPCS: 36415; 85027